=== PATIENT | female | born 1980 | race Caucasian/White ===

== ENCOUNTER → 2018-04-18 11:42 | Outpatient (CLI) | payer MEDICAID, SELFPAY ==
[2018-04-18 12:16] VITALS: BP 88/60; RESP 14; TEMP 36.6; O2SAT 98
[2018-04-18 12:31] VITALS: BP 92/61; PULSE 77; RESP 19; O2SAT 100
--- NOTE | 2018-04-18 12:45 | PDOC.PAIN_ITS ---
Date of Service: 04/18/18 Time of Service: 12:43 Pain Clinic Procedure Note Lumbar/Sacral Medial Branch Blocks #1 EBONI DIGGS has been referred to the [facility] for lumbar/ sacral medial branch blocks. COMMENTS: I did review Ms. Stratton's notes from her evaluation with the patient on 04/10/18. DX: Lumbosacral spondylosis without myelopathy Patient was interviewed and the medical record reviewed. There were no medical , pharmacologic, radiographic or other structural contraindications to attempting fluoroscopically guided local anesthetic lumbar/sacral medial branch blocks. Risks and expected side effects as well as potential benefit of the procedure were reviewed and voiced concerns addressed. The printed consent form was signed and witnessed. Standard time-out procedure was performed. Patient was placed in the prone position on the fluoroscopy table and automated blood pressure cuff and pulse oximeter applied. The skin entry points for approaching the anatomic target points of the segmental medial branches of bilateral L3-L5 were identified with anfluoroscopy and marked. Following thorough Chlorhexadine preparation of the skin and draping and 1% lidocaine infiltration of the skin entry points and subcutaneous tissues, a 22 gauge spinal needle was placed under fluoroscopic guidance down on to the target point for each respective segmental medial branch.Position was confirmed in A/P, oblique and lateral views with 0.25ml of omnipaque 240. Coult be this method .5ml 0.5% Bupivacaine was injected or 1% Lidocaine. Vital signs were stable throughout the procedure and were as recorded in the docflowsheet by the nursing staff. Follow up plans and appointments were discussed and was instructed to keep careful note of how the usual pain was modified by these injections. Specifically was asked to keep a pain diary for the next 24 hours using a numeric pain scale of 0-10 and report these results at the follow-up visit. Post procedure instruction was given as documented in the nursing documentation and having met discharge criteria. Patient was discharged from the [facility]. Based on the medial branches blocked today, if the patient has adequate relief and we are able to proceed to radiofrequency ablation, the treatment should result in the denervation of the bilateral L4-L5 and L5-S1 FACET JOINTS. We would expect to denervate a total of 4 facets during the radiofrequency ablation. COMMENTS: She will call back with her 1-4 hour post-procedure pain scores. CC: Sophia Edwards V
--- NOTE | 2018-04-18 12:45 | DI.REPORT_ITS ---
SYMPTOMS/DIAGNOSIS: LUMBAR MEDIAL BRANCH BLOCK, LUMBAR SPONDYLOSIS FLUOROSCOPY OF THE LUMBAR SPINE: Fluoroscopy Time: 46.2 sec, 5.48 mGy Fluoroscopy was provided for guidance with lumbar spine pain clinic injections. Please see procedure note for details.
[2018-04-18] MEDS: Omnipaque 240 MG/ML 50 ML BTL IJ (12:47)
[2018-04-18] MEDS: Bupivacaine 0.5% Pres-Free 30 ML VIAL IJ (12:49)
== END ==
PROVIDERS: PCP Family Medicine; Visit Provider Preventive Medicine Occupational Medicine
DX: M47.816 Spondylosis without myelopathy or radiculopathy, lumbar region (principal)
CPT/HCPCS: 64493; 64494; 72100; Q9967

== ENCOUNTER 2018-05-21 10:18 | Outpatient (CLI) | payer MEDICAID, SELFPAY ==
[2018-05-21 10:23] VITALS: BP 118/70; PULSE 97; RESP 18; TEMP 37.2; O2SAT 100
[2018-05-21 10:40] VITALS: BP 97/48; PULSE 101; RESP 16; O2SAT 99
--- NOTE | 2018-05-21 10:54 | DI.RAD_ITS ---
SYMPTOMS/DIAGNOSIS: CLOTILDE LUMBAR MEDIAL BRANCH BLOCK #1 C-ARM FLUOROSCOPY: Fluoroscopy Time: 19 sec 2.83 C-arm fluoroscopy was utilized by Dr. Denton during reported lumbar medial branch block. Hardcopy shows needle placement bilaterally adjacent to the pedicles at what appear to be the L 4, L 5 and S 1 levels.
[2018-05-21] MEDS: Lidocaine 2% Pres-Free 5 ML VIAL 3 ML IJ (10:58)
[2018-05-21] MEDS: Omnipaque 240 MG/ML 50 ML BTL IJ (10:58)
--- NOTE | 2018-05-21 11:01 | PDOC.PAIN ---
Pain Clinic Procedure Note Lumbar/Sacral Medial Branch Blocks EBONI DIGGS has been referred to the [facility] for lumbar/sacral medial branch blocks. COMMENTS: Patient had previous lumbar medial branch block with bupivacaine which lasted approximately 4 hours Patient was interviewed and the medical record reviewed. There were no medical, pharmacologic, radiographic or other structural contraindications to attempting fluoroscopically guided local anesthetic lumbar/sacral medial branch blocks. Risks and expected side effects as well as potential benefit of the procedure were reviewed and voiced concerns addressed. The printed consent form was signed and witnessed. Standard time-out procedure was performed. Patient was placed in the prone position on the fluoroscopy table and automated blood pressure cuff and pulse oximeter applied. The skin entry points for approaching the anatomic target points of the segmental medial branches of { bilateral L3, 4, 5 } were identified with anfluoroscopy and marked. Following thorough Chlorhexadine preparation of the skin and draping and 1% lidocaine infiltration of the skin entry points and subcutaneous tissues, a 22 gauge spinal needle was placed under fluoroscopic guidance down on to the target point for each respective segmental medial branch.Position was confirmed in A/P, oblique and lateral views with 0.25ml of omnipaque 240. At each point .5ml 2% lidocaine was injected. Vital signs were stable throughout the procedure and were as recorded in the docflowsheet by the nursing staff. Follow up plans and appointments were discussed and was instructed to keep careful note of how the usual pain was modified by these injections. Specifically was asked to keep a pain diary for the next 24 hours using a numeric pain scale of 0-10 and report these results at the follow-up visit. Post procedure instruction was given as documented in the nursing documentation and having met discharge criteria. Patient was discharged from the [facility]. Based on the medial branches blocked today, if the patient has adequate relief and we are able to proceed to radiofrequency ablation, the treatment should result in the denervation of the { bilateral L4-5, L5- S-FACET JOINTS}. We would expect to denervate a total of {Numbers} facets during the radiofrequency ablation. COMMENTS: CC: Sophia Edwards V Current Active Problems Problem Status Onset Spondylosis without myelopathy or radiculopathy, lumbar region Chronic
--- NOTE | 2018-05-21 11:25 | PDOC.PAIN ---
Pain Clinic Procedure Note Lumbar/Sacral Medial Branch Blocks EBONI DIGGS has been referred to the [facility] for lumbar/sacral medial branch blocks. COMMENTS: Patient had previous medial branch block with good relief for 4 hours using bupivacaine Patient was interviewed and the medical record reviewed. There were no medical, pharmacologic, radiographic or other structural contraindications to attempting fluoroscopically guided local anesthetic lumbar/sacral medial branch blocks. Risks and expected side effects as well as potential benefit of the procedure were reviewed and voiced concerns addressed. The printed consent form was signed and witnessed. Standard time-out procedure was performed. Patient was placed in the prone position on the fluoroscopy table and automated blood pressure cuff and pulse oximeter applied. The skin entry points for approaching the anatomic target points of the segmental medial branches of {Bilateral L3, 4, 5} were identified with anfluoroscopy and marked. Following thorough Chlorhexadine preparation of the skin and draping and 1% lidocaine infiltration of the skin entry points and subcutaneous tissues, a 22 gauge spinal needle was placed under fluoroscopic guidance down on to the target point for each respective segmental medial branch.Position was confirmed in A/P, oblique and lateral views with 0.25ml of omnipaque 240. At each point .5ml 2% lidocaine was injected. Vital signs were stable throughout the procedure and were as recorded in the docflowsheet by the nursing staff. Follow up plans and appointments were discussed and was instructed to keep careful note of how the usual pain was modified by these injections. Specifically was asked to keep a pain diary for the next 24 hours using a numeric pain scale of 0-10 and report these results at the follow-up visit. Post procedure instruction was given as documented in the nursing documentation and having met discharge criteria. Patient was discharged from the [facility]. Based on the medial branches blocked today, if the patient has adequate relief and we are able to proceed to radiofrequency ablation, the treatment should result in the denervation of the {Bilateral L4-5, L5-J5WHPKT JOINTS}. We would expect to denervate a total of {4} facets during the radiofrequency ablation. COMMENTS: Pain went from 3.5/10-0/10. She will follow-up for radiofrequency ablation if she meets the criteria. CC: Sophia Edwards V Current Active Problems Problem Status Onset Spondylosis without myelopathy or radiculopathy, lumbar region Chronic
--- NOTE | 2018-06-10 15:06 | PDOC.PAIN_ITS ---
Pain Clinic Procedure Note Lumbar/Sacral Medial Branch Blocks EBONI DIGGS has been referred to the [facility] for lumbar/ sacral medial branch blocks. COMMENTS: Patient had previous medial branch block with good relief for 4 hours using bupivacaine Patient was interviewed and the medical record reviewed. There were no medical , pharmacologic, radiographic or other structural contraindications to attempting fluoroscopically guided local anesthetic lumbar/sacral medial branch blocks. Risks and expected side effects as well as potential benefit of the procedure were reviewed and voiced concerns addressed. The printed consent form was signed and witnessed. Standard time-out procedure was performed. Patient was placed in the prone position on the fluoroscopy table and automated blood pressure cuff and pulse oximeter applied. The skin entry points for approaching the anatomic target points of the segmental medial branches of {Bilateral L3, 4, 5} were identified with anfluoroscopy and marked. Following thorough Chlorhexadine preparation of the skin and draping and 1% lidocaine infiltration of the skin entry points and subcutaneous tissues, a 22 gauge spinal needle was placed under fluoroscopic guidance down on to the target point for each respective segmental medial branch.Position was confirmed in A/P, oblique and lateral views with 0.25ml of omnipaque 240. At each point .5ml 2% lidocaine was injected. Vital signs were stable throughout the procedure and were as recorded in the docflowsheet by the nursing staff. Follow up plans and appointments were discussed and was instructed to keep careful note of how the usual pain was modified by these injections. Specifically was asked to keep a pain diary for the next 24 hours using a numeric pain scale of 0-10 and report these results at the follow-up visit. Post procedure instruction was given as documented in the nursing documentation and having met discharge criteria. Patient was discharged from the [facility]. Based on the medial branches blocked today, if the patient has adequate relief and we are able to proceed to radiofrequency ablation, the treatment should result in the denervation of the {Bilateral L4-5, L5-H0WVDFT JOINTS}. We would expect to denervate a total of {4} facets during the radiofrequency ablation. COMMENTS: Pain went from 3.5/10-0/10. She will follow-up for radiofrequency ablation if she meets the criteria. CC: Sophia Edwards V Current Active Problems Problem Status Onset Spondylosis without myelopathy or radiculopathy, lumbar region Chronic
--- NOTE | 2018-06-10 15:06 | PDOC.PAIN_ITS ---
Pain Clinic Procedure Note Lumbar/Sacral Medial Branch Blocks EBONI DIGGS has been referred to the [facility] for lumbar/ sacral medial branch blocks. COMMENTS: Patient had previous lumbar medial branch block with bupivacaine which lasted approximately 4 hours Patient was interviewed and the medical record reviewed. There were no medical , pharmacologic, radiographic or other structural contraindications to attempting fluoroscopically guided local anesthetic lumbar/sacral medial branch blocks. Risks and expected side effects as well as potential benefit of the procedure were reviewed and voiced concerns addressed. The printed consent form was signed and witnessed. Standard time-out procedure was performed. Patient was placed in the prone position on the fluoroscopy table and automated blood pressure cuff and pulse oximeter applied. The skin entry points for approaching the anatomic target points of the segmental medial branches of { bilateral L3, 4, 5 } were identified with anfluoroscopy and marked. Following thorough Chlorhexadine preparation of the skin and draping and 1% lidocaine infiltration of the skin entry points and subcutaneous tissues, a 22 gauge spinal needle was placed under fluoroscopic guidance down on to the target point for each respective segmental medial branch.Position was confirmed in A/P, oblique and lateral views with 0.25ml of omnipaque 240. At each point .5ml 2% lidocaine was injected. Vital signs were stable throughout the procedure and were as recorded in the docflowsheet by the nursing staff. Follow up plans and appointments were discussed and was instructed to keep careful note of how the usual pain was modified by these injections. Specifically was asked to keep a pain diary for the next 24 hours using a numeric pain scale of 0-10 and report these results at the follow-up visit. Post procedure instruction was given as documented in the nursing documentation and having met discharge criteria. Patient was discharged from the [facility]. Based on the medial branches blocked today, if the patient has adequate relief and we are able to proceed to radiofrequency ablation, the treatment should result in the denervation of the { bilateral L4-5, L5- S-FACET JOINTS}. We would expect to denervate a total of {Numbers} facets during the radiofrequency ablation. COMMENTS: CC: Sophia Edwards V Current Active Problems Problem Status Onset Spondylosis without myelopathy or radiculopathy, lumbar region Chronic
== END 2018-05-21 10:38 ==
PROVIDERS: PCP Family Medicine; Visit Provider Anesthesiology Pain Medicine
DX: M47.816 Spondylosis without myelopathy or radiculopathy, lumbar region (principal); G89.29 Other chronic pain
CPT/HCPCS: 64493 ×2; 64494 ×2; 64495 ×2; 72100; Q9967

== ENCOUNTER 2018-11-21 09:00 | Outpatient (CLI) | payer MEDICAID, SELFPAY ==
[2018-11-21 09:49] LABS: Abs Immature Grans 0.01 k/cumm (0.0-0.09); Absolute Basophil Count 0.02 k/cumm (0.0-0.2); Absolute Eosinophil Count 0.21 k/cumm (0.0-0.7); Absolute Monocyte Count 0.27 k/cumm (0.11-0.7); Absolute Neutrophil Count 2.32 k/cumm (1.2-6.7); Basophils % 0.4; Eosinophils % 3.8; HCT 40.7 % (36.0-46.0); HGB 13.2 g/dL (12.0-15.5); Immature Grans % 0.2; Lymphocytes % 48.8; Mean Corp. HGB Concentration 32.4 g/dL (32.0-36.0); Mean Corpuscular Hemoglobin 31.2 pg (27.0-33.0); Mean Corpuscular Volume 96.2 fL (80-95); Mean Platelet Volume 9.1 fL (8.0-11.0); Monocytes % 4.9; Neutrophils % 41.9; Platelet Count 301 x1000/uL (130-400); RBC 4.23 m/cumm (4.00-5.20); RBC Distribution Width 13.5 % (11.7-14.6); White Blood Cell Count 5.53 k/cumm (4.4-10.8)
[2018-11-21 10:10] LABS: Bilirubin Negative (Negative); Blood Negative (Negative); Clarity Clear; Glucose Negative (Negative); Ketones Negative (Negative); Leukocyte Esterase Negative (Negative); Nitrite Negative (Negative); Specific Gravity >= 1.030 (1.005-1.025); Urobilinogen 0.2 EU/dL (Up TO 0.2); pH 6.5 (5-8)
[2018-11-21 10:38] LABS: ESR 32 MM/HR (0-20)
[2018-11-21 11:18] LABS: ALT 22 U/L (12-78); AST 16 U/L (15-37); Alkaline Phosphatase 79 U/L (46-116); Anion Gap 7.9 mmol/L (3-11); BUN 18 mg/dL (7-18); Bilirubin, Total 0.2 mg/dL (0.2-1.0); C-Reactive Protein 0.23 mg/dL (0.0-0.3); CO2 31.1 mmol/L (21.0-32.0); Calcium 9.3 mg/dL (8.5-10.1); Chloride 103 mmol/L (98-107); FREE T4 0.77 ng/dL (0.76-1.46); Glucose 87 mg/dL (70-100); Potassium 4.2 mmol/L (3.5-5.1); Sodium 142 mmol/L (136-145); TSH 2.59 uIU/mL (0.358-3.74); Total Protein 7.7 g/dL (6.4-8.2)
== END 2018-11-21 09:20 ==
PROVIDERS: PCP Family Medicine; Visit Provider Family Medicine
DX: R63.5 Abnormal weight gain (principal); R61 Generalized hyperhidrosis
CPT/HCPCS: 36415; 80053; 85652; 81003; 84439; 84443; 85025; 86140

== ENCOUNTER 2019-02-05 09:51 | Outpatient (CLI) | payer MEDICAID, SELFPAY ==
[2019-02-05 11:40] LABS: TSH (W/Ref FT4) 2.76 uIU/mL (0.358-3.74)
[2019-02-06 10:29] LABS: Hepatitis C Ab w Rflx HCV PCR Negative (NEGAT)
[2019-02-06 15:41] LABS: Hepatitis A IgM Ab Negative (Negative)
[2019-02-07 09:09] LABS: HIV-1/2 Ag & Ab Screen SEE COMMENTS (NEGAT)
[2019-02-07 12:05] LABS: FREE T4 0.79 ng/dL (0.76-1.46)
[2019-02-07 16:47] LABS: HIV 1 Ab Diff Negative
[2019-02-07 16:48] LABS: HIV 2 Ab Diff Negative
== END 2019-02-05 10:11 ==
PROVIDERS: PCP Family Medicine; Visit Provider Family Medicine
DX: E03.9 Hypothyroidism, unspecified (principal); D51.0 Vitamin B12 deficiency anemia due to intrinsic factor deficiency; F90.0 Attention-deficit hyperactivity disorder, predominantly inattentive type; F19.21 Other psychoactive substance dependence, in remission; Z11.4 Encounter for screening for human immunodeficiency virus [HIV]; Z11.59 Encounter for screening for other viral diseases
CPT/HCPCS: 36415; 86701; 86702; 86803; 87389; 84439; 84443; 86709

== ENCOUNTER 2019-05-27 09:53 | Outpatient (CLI) | payer MEDICAID, SELFPAY ==
[2019-05-27 11:42] LABS: TSH (W/Ref FT4) 1.44 uIU/mL (0.36-3.74); Vitamin B12 395 pg/mL (193-986)
[2019-05-28 12:16] LABS: HIV-1/2 Ag & Ab Screen SEE COMMENTS (NEGAT)
[2019-06-02 12:51] LABS: HIV 1 Ab Diff Negative; HIV 2 Ab Diff Negative
== END 2019-05-27 10:13 ==
PROVIDERS: PCP Family Medicine; Visit Provider Family Medicine
DX: E03.9 Hypothyroidism, unspecified (principal); R76.8 Other specified abnormal immunological findings in serum; D51.0 Vitamin B12 deficiency anemia due to intrinsic factor deficiency
CPT/HCPCS: 36415; 86701; 86702; 87389; 82607; 84443

== ENCOUNTER 2019-06-19 15:31 | Outpatient (CLI) | payer MEDICAID, SELFPAY ==
[2019-06-23 14:49] LABS: HIV-1 RNA Quantification Undetected copies/mL (UNDECT)
== END 2019-06-19 15:51 ==
PROVIDERS: PCP Family Medicine; Visit Provider Family Medicine
DX: R76.8 Other specified abnormal immunological findings in serum (principal)
CPT/HCPCS: 36415; 87536

== ENCOUNTER 2019-06-28 18:40 | Emergency (ER) | payer MEDICAID, SELFPAY ==
[2019-06-28 18:49] VITALS: BP 126/65; PULSE 99; RESP 18; TEMP 36.7; O2SAT 100
--- NOTE | 2019-06-28 19:16 | ED.GENADUL_ITS ---
Discharge Plan Disposition Patient Disposition: HOME Condition: Stable Discharge Details Chief Complaint: Orthopedic Clinical Impression: Abscess or cellulitis of foot Primary Care Provider: Sophia Edwards V ED Provider: Rita Baer Home Meds and New Rx's Prescriptions: New mupirocin 2 % ointment 1 applic TP BID Qty: 15 RF: 0 cephalexin [Keflex] 500 mg capsule 500 mg PO TID 7 Days Qty: 21 RF: 0 Continued tyrosine 500 MG capsule 1,000 mg PO DAILY RF: 0 ondansetron 4 MG tablet,disintegrating 4 mg PO ONCE PRNRF: 0 cholecalciferol (vitamin D3) 1,000 UNIT capsule 2,000 unit PO DAILY RF: 0 Vyvanse 40 MG capsule 40 mg PO DAILY RF: 0 Vyvanse 70 MG capsule 70 mg PO QAM RF: 0 polyethylene glycol 3350 17 GM powder in packet 17 gm PO DAILY PRN PRNRF: 0 methocarbamol 750 MG tablet 750 mg PO HS PRNRF: 0 cyanocobalamin (vitamin B-12) 1,000 MCG/ML solution 1,000 mcg IJ .Q3WKS RF: 0 chlordiazepoxide-clidinium [Librax (with clidinium)] 1 CAP capsule 1 ea PO DAILY PRN PRNRF: 0 levonorgestrel-ethinyl estrad [Introvale] 1 EACH tablets,dose pack,3 month 1 ea PO DAILY RF: 0 lysine HCl 500 MG tablet 500 mg PO DAILY RF: 0 clonidine HCl 0.1 MG tablet extended release 12 hr 0.1 mg PO HS PRN PRNRF: 0 quetiapine [Seroquel] 100 mg Tablet 100 mg PO HS RF: 0 Discharge Instructions Instructions: Cellulitis (ED) Additional Instructions: Take the antibiotics until finished. Wash the area with soap and water and cover if risk of contamination, or keep open to air if resting at home. Follow-up with your scheduled appointment with your primary care doctor on July 08 for reevaluation. Return to the emergency department if you develop any worsening or concerning symptoms such as fever, red streaking or any worsening symptoms. Discharge Data Discharge Physician: Rita Baer Medical Decision Making 39-year-old female presents with right foot pain, swelling and drainage for the past several weeks. She states she is unsure of any injury. She denies fever. There appears to be a skin infection with clear yellowish-whitish drainage and center consistent with cellulitis with draining mild abscess. There is no surrounding induration. There is no bony deformity or ecchymosis. Patient denies any known injury but she was offered x-ray but declines. Will treat with topical and oral antibiotics. She is advised to rest and elevate, proper hygiene, return here if worse and to follow-up with her primary care doctor for reevaluation on her scheduled appointment on July 08. HPI General Mode of arrival: ambulatory . Date/Time Provider Initiated Documentation: 06/28/19 19:02 . Limitations to Documentation: no limitations . Information obtained by: patient . HPI Narrative: Patient is a 39 female presents with right foot infection for the past several weeks now with clear to yellowish pus drainage. She states she is unsure of any known injury but she is unsure how she obtained the wound. She denies any bony deformity or pain within the toe. She denies any fever. She states she has been cleaning the area with peroxide. Related Data Home Medications Medication Instructions Recorded Confirmed Vyvanse 70 mg PO QAM 12/10/12 06/28/19 chlordiazepoxide-clidinium [Librax 1 ea PO DAILY PRN PRN 04/07/16 06/28/19 (with clidinium)] clonidine HCl 0.1 mg PO HS PRN PRN 04/07/16 06/28/19 cyanocobalamin (vitamin B-12) 1,000 mcg IJ .Q3WKS 04/07/16 06/28/19 levonorgestrel-ethinyl estrad 1 ea PO DAILY 04/07/16 06/28/19 [Introvale] lysine HCl 500 mg PO DAILY 04/07/16 06/28/19 methocarbamol 750 mg PO HS PRN 04/07/16 06/28/19 polyethylene glycol 3350 17 gm PO DAILY PRN PRN 04/07/16 06/28/19 Vyvanse 40 mg PO DAILY tab-cap 04/06/18 06/28/19 cholecalciferol (vitamin D3) 2,000 unit PO DAILY 04/06/18 06/28/19 ondansetron 4 mg PO ONCE PRN 04/06/18 06/28/19 tyrosine 1,000 mg PO DAILY 04/06/18 06/28/19 cephalexin [Keflex] 500 mg PO TID 7 Days #21 cap 06/28/19 mupirocin 1 applic TP BID #15 gm 06/28/19 quetiapine [Seroquel] 100 mg PO HS 06/28/19 06/28/19 Previous Rx's Medication Instructions Recorded cephalexin [Keflex] 500 mg PO TID 7 Days #21 cap 06/28/19 mupirocin 1 applic TP BID #15 gm 06/28/19 Allergies Allergy/AdvReac Type Severity Reaction Status Date / Time diphenhydramine HCl Allergy Severe Anaphylaxsi Unverified 06/28/19 18:52 [From Benadryl] s duloxetine HCl Allergy Intermediate hallucination, Unverified 06/28/19 18:52 [From Cymbalta] fever, stomach pain, sweating,vomitting eszopiclone [From Lunesta] AdvReac Unknown Unverified 06/28/19 18:52 morphine sulfate AdvReac Unknown Unverified 06/28/19 18:52 [From MS Contin] trazodone AdvReac Unknown Unverified 06/28/19 18:52 zolpidem tartrate AdvReac Unknown Unverified 06/28/19 18:52 [From Ambien] General Stated Complaint: Orthopedic SAMANTHA: 4 Review of Systems Review of Systems ROS Unobtainable: All systems reviewed & are unremarkable except as noted in HPI and below Constitutional Constitutional: Reports as per HPI, Denies chills and Denies fever(s) Eyes Eyes: Denies blurry vision ENT Ears, Nose, Mouth, and Throat: Denies dizziness, Denies sore throat and Denies throat swelling Cardiovascular Cardiovascular: Denies chest pain and Denies dyspnea Respiratory Respiratory: Denies cough and Denies dyspnea Gastrointestinal Gastrointestinal: Denies abdominal pain, Denies diarrhea and Denies vomiting Genitourinary Genitourinary: Denies hematuria and Denies dysuria Musculoskeletal Musculoskeletal: Denies back pain and Denies numbness Integumentary/Breasts Skin/Breast: Denies lesions and Denies rash Neurologic Neurologic: Denies dizziness, Denies focal weakness and Denies numbness Allergic/Immunologic Allergic/Immunologic: Denies throat swelling [facility] Medical History Anemia Anxiety Attention deficit disorder (ADD) without hyperactivity Back pain Chronic fatigue syndrome Congenital finger anomaly Cyclical vomiting Depression History of pneumonia HSV infection Hx of substance abuse IBS (irritable bowel syndrome) Low back pain Mold exposure Mood disorder Muscle spasm Onychomycosis of toenail Peripheral neuropathy Pernicious anemia Post traumatic stress disorder Psychogenic dyspareunia Recurrent respiratory infection Scoliosis Skin lesion Sleep disturbance Spondylosis without myelopathy or radiculopathy, lumbar region (Chronic) Vaginal irritation Vertigo Wart Weight loss Social History Smoking/Tobacco Use Status: Current every day Alcohol Intake: never Drug use: Current Sobriety Do you feel safe at home: Yes Do you feel safe in your relationship?: Yes Exam Const General: cooperative, healthy appearing and no acute distress HENMT Head: normal to inspection Mouth: oral mucosae normal Eyes General: appearance normal, both eyes and all related structures Neck Neck: normal visual inspection Resp Effort & Inspection: normal respiratory effort and able to speak in complete sentences Cardio Rate: regular rate Skin General skin exam: no rashes or lesions noted Neuro General: alert, awake and oriented x3 Motor: muscle tone normal throughout Extrem Ankle/foot/toe images: 1. 1 x 1 cm area of clear whitish-yellowish drainage on the lateral aspect of distal end of fifth metatarsal near base of fifth toe with 1 cm area of surrounding erythema and tenderness to palpation. No other significant fluctuance or induration. Other: DP/PT pulses intact. No ecchymosis or bony deformity noted to right fifth toe. Normal range of motion of right fifth toe. Psych Appearance: grossly normal Affect: normal affect Course Vital Signs Vital signs: Vital Signs Temperature 98.1 F 06/28/19 18:49 Pulse 99 H 06/28/19 18:49 Respiratory Rate 18 06/28/19 18:49 Blood Pressure 126/65 06/28/19 18:49 Pulse Oximetry 100 06/28/19 18:49 Temperature 98.1 F 06/28/19 18:49 Temperature Source Skin 06/28/19 18:49 Pulse 99 H 06/28/19 18:49 Respiratory Rate 18 06/28/19 18:49 Respiratory Effort Non-Labored 06/28/19 18:51 Blood Pressure 126/65 06/28/19 18:49 Blood Pressure Position Sitting 06/28/19 18:49 Pulse Oximetry 100 06/28/19 18:49 Oxygen Delivery Method Room Air 06/28/19 18:49 Oxygen Flow Rate 0 06/28/19 18:49
[2019-06-28] MEDS: Cephalexin 500 MG CAP PO (19:27)
== END 2019-06-28 19:39 | disposition home or self-care (01) ==
PROVIDERS: Emergency Provider Physician Assistant; PCP Family Medicine
DX: L02.611 Cutaneous abscess of right foot (principal); L03.115 Cellulitis of right lower limb
CPT/HCPCS: 99283

== ENCOUNTER 2020-08-31 17:41 | Outpatient (REF) | payer MEDICAID, SELFPAY ==
--- NOTE | 2020-08-31 16:15 | SKI_PTH ---
PATIENT: Karon Parra LOC: NCN #:[id number] AGE/SX: 40/F ROOM: RE08/31/[address]: Sophia Edwards V : 1980 BED: DIS: 08/31/2020 SPEC #: [id number] RECD: 09/01/20 12:43 STATUS: DAVION MARTINEZ #: [id number] DAMARI: 08/31/20 16:[address]: Sophia Edwards V DEPT: Surgical Specimen RECD BY: Joyce Genao Tissues: 1 - SKIN BIOPSY(SHAVE/PUNCH) Procedures: SKIN LEVEL 4 Comments: [id number]
== END 2020-08-31 18:01 ==
LOC: NCHCN 17:41
PROVIDERS: PCP Family Medicine; Visit Provider Family Medicine
DX: L82.1 Other seborrheic keratosis (principal)
CPT/HCPCS: 88305

== ENCOUNTER 2021-01-21 18:34 | Outpatient (REF) | payer MEDICAID, SELFPAY ==
[2021-01-28 09:53] LABS: Codeine 1479 ng/mL (Cutoff: 25); Dihydrocodeine Negative ng/mL (Cutoff: 25); Hydrocodone Negative ng/mL (Cutoff: 25); Hydromorphone 199 ng/mL (Cutoff: 25); Morphine 73737 ng/mL (Cutoff: 25); Naloxone Negative ng/mL (Cutoff: 25); Norhydrocodone Negative ng/mL (Cutoff: 25); Noroxycodone Negative ng/mL (Cutoff: 25); Opiates Interpretation Positive.
== END 2021-01-21 18:35 | disposition home or self-care (01) ==
LOC: NCHCN 18:34
PROVIDERS: PCP Family Medicine; Visit Provider Family Medicine
DX: Z51.81 Encounter for therapeutic drug level monitoring (principal)
CPT/HCPCS: 80361; 80362

== ENCOUNTER 2021-10-10 02:00 | Outpatient (CLI) | payer MEDICAID, SELFPAY ==
--- NOTE | 2021-10-10 10:30 | DI.MAMMO_ITS ---
Exam(s) MAMMO SCREENING EXAM: MAMMO SCREENING CLINICAL HISTORY: SCREENING, [facility], Z00.00. TECHNIQUE: Bilateral full field digital CC and MLO mammographic images were obtained with 3D tomosyn thesis and utilizing computer aided detection (CAD). COMPARISON: None. This is a baseline mammogram on this 41-year-old patient FINDINGS: The right breast asymmetric density-possible nodule located 6 cm in from the nipple, best seen on the 3D MLO images measuring approximately 1.4 x 1.1 cm. Spot compression view and ultrasound recommended . The opposite-left breast on 3D MLO imaging there is a possible nodule located 5 cm in from nipple horace suring 5 x 4 millimeters. Also require spot compression view and ultrasound. There are no malignant-appearing microcalcification groups in either breast. There is no significant architectural distortion nor skin thickening-retraction. IMPRESSION: Bilateral findings described above. Spot compression views both breasts and bilateral breast ultrasou nd recommended. BI-RADS Category 0 - Assessment Incomplete: Need additional imaging evaluation Breast Density - Category B - Scattered areas of fibroglandular density Breast density Category C or D implies that the patient has dense breast tissue. Dense breast tissue can make it harder to find cancer on a mammogram. Dense breast tissue is also associated with an incr eased risk of breast cancer. This information about the result of the mammogram report was provided to the patient to raise their awareness. Use this report when you speak with the patient about their risks for breast cancer, which includes their family history. At that time, you may recommend additional screening tests (Ultrasoun d or MRI) as these tests may add significant information. A negative radiographic report should not delay biopsy if a dominant or clinically suspicious mass is present. Up to ten percent of cancers are not identified on mammography. A negative report may reinforce clinical impression. Adenosis and dense breasts may obscure an underlying neoplasm. False positive reports average 6 to 10%. Patient will receive a letter notifying them of these results.
== END 2021-10-10 02:20 ==
PROVIDERS: PCP Family Medicine; Visit Provider Family Medicine
DX: Z12.31 Encounter for screening mammogram for malignant neoplasm of breast (principal); R92.8 Other abnormal and inconclusive findings on diagnostic imaging of breast
CPT/HCPCS: 77063; 77067

== ENCOUNTER 2021-10-31 00:31 | Outpatient (CLI) | payer MEDICAID, SELFPAY ==
--- NOTE | 2021-10-31 | DI.US_ITS ---
Exam(s) US BREAST LT COMPLETE US BREAST RT COMPLETE MG MAMMO SCREEN CALL BACK BI EXAM: MG MAMMO SCREEN CALL BACK BI AND BILATERAL COMPLETE BREAST ULTRASOUND CLINICAL HISTORY: RT BREAST ASYMMETRIC DENSITY, POSSIBLE NODULE, LEFT BREAST POSSIBLE NODULE. TECHNIQUE: BILATERAL l spot mammographic images obtained with 3D tomosynthesisand utilizing computer aided detection (CAD). . Complete BILATERAL breast Ultrasound was also performed, including all 4 quadrants, the retroareolar region, and the ipsilateral axilla. COMPARISON: THIS additional imaging was performed due to findings described on the recent BASAL scre ening mammogram of 10/10/2021. FINDINGS: DIAGNOSTIC BILAT MAMMOGRAM: Additional mammographic views performed todayrender findings both breasts somewhat less concerning. BILATERAL COMPLETE BREAST ULTRASOUND: Ultrasound performed today reveals no significant focal findings in all 4 quadrants of the right [address]isy [address]. In the left breast there are no focal findings to correspond to the finding described on the recent m ammogram. However, at the 11 o'clock position there is a finding measuring approximately 11 x 5 mill imeters, wider than taller and having the appearance of a probable conglomeration microcysts. This i s benign-appearing. No other focal findings. IMPRESSION: No radiographic evidence of malignancy. Benign-appearing ultrasound finding at 11 o'clock position of the left breast as described above Appropriate follow-up as discussed by myself with the patient today, is repeat breast imaging in 6 mo nths to include bilateral mammogram and repeat breast ultrasound. Is . The patient was informed of these findings and recommendations prior to leaving the department today. BI-RADS Category 3 - 6 month - Probably Benign Finding: Recommend follow-up mammography in 6 months Breast Density - Category B - Scattered areas of fibroglandular density Breast density Category C or D implies that the patient has dense breast tissue. Dense breast tissue can make it harder to find cancer on a mammogram. Dense breast tissue is also associated with an incr eased risk of breast cancer. This information about the result of the mammogram report was provided to the patient to raise their awareness. Use this report when you speak with the patient about their risks for breast cancer, which includes their family history. At that time, you may recommend additional screening tests (Ultrasoun d or MRI) as these tests may add significant information. A negative radiographic report should not delay biopsy if a dominant or clinically suspicious mass is present. Up to ten percent of cancers are not identified on mammography. A negative report may reinforce clinical impression. Adenosis and dense breasts may obscure an underlying neoplasm. False positive reports average 6 to 10%. Patient will receive a letter notifying them of these results.
== END 2021-10-31 00:51 ==
PROVIDERS: PCP Family Medicine; Visit Provider Family Medicine
DX: Z12.31 Encounter for screening mammogram for malignant neoplasm of breast (principal); R92.8 Other abnormal and inconclusive findings on diagnostic imaging of breast; N60.12 Diffuse cystic mastopathy of left breast; N64.59 Other signs and symptoms in breast
CPT/HCPCS: 76642; 77063; 77067

== ENCOUNTER 2021-12-13 03:22 | Outpatient (CLI) | payer MEDICAID, SELFPAY ==
--- NOTE | 2021-12-13 08:45 | RT.EKG_ITS ---
APPROVED REPORT Exam: Resting ECG Reason for Exam: palpitations Patient Location: O HR:60 bpm ECG Measurements Heart Rate 60 AXIS MI 166 P 64 QRSd 85 QRS 87 QT 438 T 75 QTc 440 Conclusion Sinus rhythm...normal P axis, V-rate 60- 99 Probable left atrial enlargement...P >50mS, <-0.10mV V1 Otherwise normal
== END 2021-12-13 03:23 | disposition home or self-care (01) ==
LOC: RT 03:22
PROVIDERS: PCP Family Medicine; Visit Provider Family Medicine
DX: R00.2 Palpitations (principal); Z51.81 Encounter for therapeutic drug level monitoring; R94.31 Abnormal electrocardiogram [ECG] [EKG]
CPT/HCPCS: 93005; 93010

== ENCOUNTER → 2022-04-20 02:15 | Outpatient (CLI) | payer MEDICAID, SELFPAY ==
--- NOTE | 2022-04-20 13:05 | DI.MAMMO_ITS ---
Exam(s) MG MAMMO DIAGNOSTIC BI EXAM: MG MAMMO DIAGNOSTIC BI CLINICAL HISTORY: 6-MO F/U BILAT ABNL MAMMO, R92.8,DIAGNOSTIC. TECHNIQUE: Craniocaudal and mediolateral oblique Full Field Digital Mammography views with Computer Aided Diagnosis followed by Tomosynthesis and breast ultrasound. COMPARISON: MG MG MAMMO SCREENING from 10/10/2021 US US BREAST LT COMPLETE from 10/31/2021 US US BREAST RT COMPLETE from 10/31/2021 MG MG MAMMO SCREEN CALL BACK BI from 10/31/2021 US US BREAST LT LIMITED from 04/20/2022 FINDINGS: Mammography/Tomosynthesis: Masses/Architectural Distortion: Stable 5 millimeter circumscribed nodule central inferior left breas t. No abnormalities seen in the right breast. Microcalcifictions: No suspicious pleomorphic-type are seen. Skin Thickening/Nipple Retraction: None. Left breast US: Echotexture: Normal appearance of the glandular tissue. Shadowing: No suspicious foci. Cyst: Previously noted collection of microcysts appears unchanged in the 11 to 12 o'clock position. Solid lesions: None seen. Ductal dilation: None. IMPRESSION: 1. No evidence of malignancy is noted. 2. Unless there is more urgent need, follow-up screening mammography is recommended, as per [place] [employer] guidelines in 1 year.. 3. The findings were discussed with the patient on the date of the examination. BI-RADS Category 2 - Benign Findings Breast Density - Category B - Scattered areas of fibroglandular density A negative radiographic report should not delay biopsy if a dominant or clinically suspicious mass is present. Up to ten percent of cancers are not identified on mammography. A negative report may reinforce clinical impression. Adenosis and dense breasts may obscure an underlying neoplasm. False positive reports average 6 to 10%. Patient will receive a letter notifying them of these results.
--- NOTE | 2022-04-20 14:00 | DI.US_ITS ---
Exam(s) US BREAST LT LIMITED EXAM: US BREAST LT LIMITED CLINICAL HISTORY: 6-MO F/U LT BREAST, 11 O'CLOCK POSITION MICROCYSTS TECHNIQUE: Ultrasound left breast performed using standard protocol. COMPARISON: No exams were available for comparison FINDINGS: No change in collection microcysts in the 11-12 o'clock position. No suspicious solid or cystic mass es, hypoechoic foci, areas of abnormal shadowing, or areas of skin thickening. IMPRESSION: No sonographically suspicious finding. BI-RADS Category 2 - Benign Findings DATA REPOSITORY:
== END ==
PROVIDERS: PCP Family Medicine; Visit Provider Family Medicine
DX: Z12.31 Encounter for screening mammogram for malignant neoplasm of breast (principal); R92.8 Other abnormal and inconclusive findings on diagnostic imaging of breast
CPT/HCPCS: 76642; 77062; 77066; G0279

== ENCOUNTER 2022-04-20 02:55 | Outpatient (CLI) | payer MEDICAID, SELFPAY ==
[2022-04-20 13:33] LABS: FREE T4 0.97 ng/dL (0.76-1.46); TSH 1.39 uIU/mL (0.36-3.74)
[2022-04-20 16:13] LABS: Calculated LDL 106 mg/dL (<100); Cholesterol 170 mg/dL (<200); Glucose 97 mg/dL (74-106); HDL Cholesterol 24 mg/dL (40-60); Triglyceride 203 mg/dL (<150); Vitamin B12 376 pg/mL (193-986)
== END 2022-04-20 02:56 | disposition home or self-care (01) ==
LOC: LBO 02:56
PROVIDERS: PCP Family Medicine; Visit Provider Family Medicine
DX: E03.9 Hypothyroidism, unspecified (principal); D51.0 Vitamin B12 deficiency anemia due to intrinsic factor deficiency; R79.89 Other specified abnormal findings of blood chemistry
CPT/HCPCS: 36415; 80061; 82947; 82607; 84439; 84443

== ENCOUNTER 2022-07-31 14:06 | Emergency (ER) | payer OTHER, MEDICAID, SELFPAY ==
[2022-07-31 14:11] VITALS: BP 132/83; PULSE 92; RESP 20; O2SAT 97
--- NOTE | 2022-07-31 14:30 | DI.CT_ITS ---
Exam(s) CT HEAD CERVICAL SPINE WO EXAM: CT HEAD CERVICAL SPINE WO CLINICAL HISTORY: trauma, headache, neck pain. TECHNIQUE: Imaging Protocol: Axial computed tomography images with coronal and sagittal reformatted images were created and reviewed COMPARISON: No exams were available for comparison FINDINGS: Head CT Ventricles and Extra axial spaces: Normal in size and morphology for the patient's age. Hemorrhage: None. Cerebral parenchyma: Normal. Midline shift: None. Brainstem/Cerebellum: Normal. Calvarium: Normal. Visualized Paranasal sinuses/Mastoids: Clear. Soft tissues: Laceration left forehead. No foreign body. Cervical Spine CT BONES: Vertebral body heights are maintained. Alignment is normal. There is no evidence of acute frac ture. Mild degenerative disc changes and facet degenerative changes are seen . SOFT TISSUES: No paraspinal hematoma. The airway appears intact. No pneumothorax is seen at the lung apices. IMPRESSION: Head CT: Left frontal scalp laceration. No acute intracranial abnormality. C-spine CT: Mild degenerative changes, no acute abnormality. RADIATION DOSE DELIVERED: 1,569.28mGy.cm Total DLP DATA REPOSITORY: All CT scans at this facility are submitted to the National Radiology Data Registry (NRDR) Dose Index Registry (DIR) with the [employer] ([employer]). RADIATION OPTIMIZATION: All CT scans at this facility use at least one of these dose optimization te chniques: automated exposure control; mA and/or kV adjustment per patient size (includes targeted exa ms where dose is matched to clinical indication); or iterative reconstruction.
--- NOTE | 2022-07-31 14:41 | DI.CT_ITS ---
Exam(s) CT CHEST/ABD/PEL WO EXAM: CT CHEST/ABD/PEL WO CLINICAL HISTORY: trauma. TECHNIQUE: Imaging Protocol: Axial computed tomography images with coronal and sagittal reformatted images were created and reviewed CONTRAST MATERIAL: Intravenous: Omnipaque 350 Contrast volume:Noncontrast Oral: / no COMPARISON: CT RENAL COLIC WO CONTRAST from 04/07/2016 FINDINGS: CHEST: Tracheobronchial tree: Patent where visualized. Mediastinum and Becki: No dominant adenopathy or fluid collection. Pulmonary parenchyma: No consolidation or dominant measurable mass. Pleura: No effusion or pneumothorax. Lymph nodes: Within normal limits. Aorta: Thoracic portion non-dilated. Heart: Normal size. No l pericardial effusion. Bones: Scoliosis in the thoracic spine. Subacute appearing fractures of the left anterior 4th and 5t h ribs. No acute fractures identified. ABDOMEN: Liver: Normal density. No measurable mass. Gallbladder and biliary tract: No radiodense calculus or dilation. Pancreas: Normal density, no abnormal calcifications or inflammatory process. Spleen: Normal. Kidneys: Normal size, contour and axis. No radiodense stones or obstructive uropathy. No masses seen. Adrenal glands: No masses seen. Aorta: Abdominal portion non-dilated. Lymph nodes: Within normal limits. Soft tissues: Unremarkable. PELVIS: Bladder: Symmetric distention, no gross wall thickening. Bowel: Large quantity of stool. No obstruction or bowel wall thickening. Peritoneal cavity: No ascites, collection or mesenteric inflammatory response. Bones: Unremarkable for age.. No spine or pelvic fracture. Reproductive organs: Within normal limits. IMPRESSION: No acute abnormality in the chest abdomen or pelvis.. The findings were called to Dr. Linda Caldwell of the emergency department. RADIATION DOSE DELIVERED: 1,217.06mGy.cm Total DLP DATA REPOSITORY: All CT scans at this facility are submitted to the National Radiology Data Registry (NRDR) Dose Index Registry (DIR) with the [employer] (ACR). RADIATION OPTIMIZATION: All CT scans at this facility use at least one of these dose optimization te chniques: automated exposure control; mA and/or kV adjustment per patient size (includes targeted exa ms where dose is matched to clinical indication); or iterative reconstruction.
--- NOTE | 2022-07-31 14:46 | NUR.NOTE ---
Nursing Note: Patient is refusing iv/lab work Dr. Caldwell aware
[2022-07-31] MEDS: Ondansetron O.D.T. 4 MG TABEF PO (16:13)
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
== END 2022-07-31 17:40 | disposition home or self-care (01) ==
LOC: ER 17:49
PROVIDERS: Emergency Provider Student in an Organized Health Care Education/Training Program; PCP Family Medicine
DX: S01.81XA Laceration without foreign body of other part of head, initial encounter (principal); Z23 Encounter for immunization; Z86.73 Personal history of transient ischemic attack (TIA), and cerebral infarction without residual deficits; Z86.711 Personal history of pulmonary embolism; V69.49XA Driver of heavy transport vehicle injured in collision with other motor vehicles in traffic accident, initial encounter
CPT/HCPCS: 12013; 71250; 80053; 86900; 86901; 90471; 99284; 70450; 72125; 74176; 85025

== ENCOUNTER 2022-08-05 11:51 | Emergency (ER) | payer MEDICAID, SELFPAY ==
[2022-08-05 11:53] VITALS: BP 121/61; PULSE 85; RESP 18; TEMP 36.8; O2SAT 98
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
== END 2022-08-05 12:20 | disposition home or self-care (01) ==
PROVIDERS: Emergency Provider Physician Assistant; PCP Family Medicine
DX: S01.81XD Laceration without foreign body of other part of head, subsequent encounter (principal); X58.XXXD Exposure to other specified factors, subsequent encounter

== ENCOUNTER 2022-09-12 11:52 | Emergency (ER) | payer MEDICAID, SELFPAY ==
[2022-09-12 11:58] VITALS: BP 115/68; PULSE 100; RESP 20; TEMP 37.1; O2SAT 99
--- NOTE | 2022-09-12 12:30 | DI.RAD_ITS ---
Exam(s) XR CHEST 2V PA LATERAL EXAM: XR CHEST 2V PA LATERAL CLINICAL HISTORY: Productive cough, R/O PNA. TECHNIQUE: 2D digital imaging was performed. COMPARISON: CR THORACIC SPINE from 03/11/2018 FINDINGS: 2 views: Scoliosis convex right again noted, unchanged from 2018. Heart size is normal. The mediastinum is not widened. Right lung is clear. However, there is a nodular density in the lateral aspect of the left lung izabella uring approximately 1.9 x 1.2 cm. Only seen on the frontal view but still concerning. No pleural ef fusions. IMPRESSION: Peripheral left lung nodular density. And CT scan. DATA REPOSITORY: RADIATION DOSE DELIVERED:
--- NOTE | 2022-09-12 12:46 | ED.GENADUL_ITS ---
Discharge Plan Disposition Patient Disposition: Home Condition: Stable Discharge Details Clinical Impression: URI (upper respiratory infection) Primary Care Provider: Sophia Edwards V ED Provider: Osiris Arellano Home Meds and New Rx's Prescriptions: New doxycycline hyclate 100 mg tablet 100 mg PO BID 7 Days Qty: 14 0RF Rx Instructions: Take 1 tablet twice daily x7 days No Action tyrosine 500 MG capsule 1,000 mg PO DAILY cholecalciferol (vitamin D3) 1,000 UNIT capsule 2,000 unit PO DAILY Vyvanse 40 MG capsule 40 mg PO DAILY Vyvanse 70 MG capsule 70 mg PO QAM polyethylene glycol 3350 17 GM powder in packet 17 gm PO DAILY PRN PRN methocarbamol 750 MG tablet 750 mg PO HS PRN cyanocobalamin (vitamin B-12) 1,000 MCG/ML solution 1,000 mcg IJ .Q3WKS chlordiazepoxide-clidinium [Librax (with clidinium)] 1 CAP capsule 1 ea PO DAILY PRN PRN levonorgestrel-ethinyl estrad [Introvale] 1 EACH tablets,dose pack,3 month 1 ea PO DAILY lysine HCl 500 MG tablet 500 mg PO DAILY clonidine HCl 0.1 MG tablet extended release 12 hr 0.1 mg PO HS PRN PRN ondansetron 4 mg tablet,disintegrating 4 mg PO TID Qty: 8 0RF quetiapine [Seroquel] 100 mg Tablet 100 mg PO HS mupirocin 2 % ointment 1 applic TP BID Qty: 15 0RF Discharge Instructions Instructions: Upper Respiratory Infection (ED) Additional Instructions: The COVID flu and strep swab are all negative. Chest x-ray shows no evidence for pneumonia however you do have a small lung nodule on the left. This will need to have a repeat x-ray in approximately 6 months through your PCP. Please discuss this with your primary care provider. Take the antibiotic twice daily with yogurt or probiotic for the next 7 days. Follow up with primary care provider in 3-5 days. Return to ED sooner if any worsening or concerns. Increase oral fluids. You may take [id number] cough and cold medicine as needed and as directed. Please take Tylenol or Ibuprofen with food every 4-6 hours as needed for pain and swelling. Referrals: Sophia Edwards MD [Primary Care Provider] - 2 weeks Discharge Data Discharge Date/Time-TO BE ENTERED AT DEPARTURE: 09/12/22 14:22 Medical Decision Making 42-year-old female presents with URI type symptoms for 3 weeks reports productive cough of thick green and brown sputum. She reports that she has been laying in bed for the last 3 weeks. Please see HPI and PE. Rapid flu and COVID ordered, urine Preg and chest x-ray, albuterol inhaler. Differential diagnosis includes but not limited to flu, COVID, pneumonia. Flu COVID-negative, chest x-ray shows a left possible nodule no obvious pneumonia however due to patient's symptoms and length of illness I will place patient on antibiotics. Discussed home care follow-up and strict return instructions. This text was generated using [email or web address] dictation system, please disregard any oddities of phrase or misspellings. HPI General Mode of arrival: ambulatory . Date/Time Provider Initiated Documentation: 09/12/22 12:16 . Limitations to Documentation: no limitations . Information obtained by: patient, RN notes reviewed and old records reviewed . HPI Narrative: 42-year-old female presents to the ER with chief complaint of productive cough and URI type symptoms for the last 3 weeks. She reports that she has been laying in bed. She is a smoker. She denies any fever chills she does endorse body aches. She has not taken anything for the symptoms. She does have a past medical history of PTSD, peripheral neuropathy, muscle spasm, mood disorder, irritable bowel syndrome, history of substance abuse history of pneumonia, depression and ADD. Related Data Home Medications Medication Instructions Recorded Confirmed lisdexamfetamine 70 mg capsule 70 mg PO QAM 12/10/12 09/12/22 (Vyvanse) chlordiazepoxide-clidinium 5 1 ea PO DAILY PRN PRN 04/07/16 09/12/22 mg-2.5 mg capsule (Librax (with clidinium)) clonidine HCl 0.1 mg 0.1 mg PO HS PRN PRN 04/07/16 09/12/22 tablet,extended release,12 hr cyanocobalamin (vitamin B-12) 1,000 mcg IJ .Q3WKS 04/07/16 09/12/22 1,000 mcg/mL injection solution levonorgestrel 0.15 mg-ethinyl 1 ea PO DAILY 04/07/16 09/12/22 estradiol 30 mcg tablets,3 mos pack(91) (Introvale) lysine HCl 500 mg tablet 500 mg PO DAILY 04/07/16 09/12/22 methocarbamol 750 mg tablet 750 mg PO HS PRN 04/07/16 09/12/22 polyethylene glycol 3350 17 gram 17 gm PO DAILY PRN PRN 04/07/16 09/12/22 oral powder packet cholecalciferol (vitamin D3) 25 2,000 unit PO DAILY 04/06/18 09/12/22 mcg (1,000 unit) capsule lisdexamfetamine 40 mg capsule 40 mg PO DAILY 04/06/18 09/12/22 (Vyvanse) tyrosine 500 mg capsule 1,000 mg PO DAILY 04/06/18 09/12/22 mupirocin 2 % topical ointment 1 applic topical BID #15 grams 06/28/19 09/12/22 quetiapine 100 mg tablet (Seroquel) 100 mg PO HS 06/28/19 09/12/22 ondansetron 4 mg disintegrating 4 mg PO TID #8 tabs 07/31/22 09/12/22 tablet doxycycline hyclate 100 mg tablet 100 mg PO BID 7 days #14 tabs 09/12/22 Previous Rx's Medication Instructions Recorded mupirocin 2 % topical ointment 1 applic topical BID #15 grams 06/28/19 ondansetron 4 mg disintegrating 4 mg PO TID #8 tabs 07/31/22 tablet doxycycline hyclate 100 mg tablet 100 mg PO BID 7 days #14 tabs 09/12/22 Allergies Allergy/AdvReac Type Severity Reaction Status Date / Time diphenhydramine HCl Allergy Severe Anaphylaxsi Unverified 09/12/22 12:04 [From Benadryl] s duloxetine HCl Allergy Intermediate hallucination, Unverified 09/12/22 12:04 [From Cymbalta] fever, stomach pain, sweating,vomitting eszopiclone [From Lunesta] AdvReac Unknown Unverified 09/12/22 12:04 morphine sulfate AdvReac Unknown Unverified 09/12/22 12:04 [From MS Contin] trazodone AdvReac Unknown Unverified 09/12/22 12:04 zolpidem tartrate AdvReac Unknown Unverified 09/12/22 12:04 [From Rashel] General Stated Complaint: RespSymp SAMANTHA: 4 Review of Systems All systems reviewed & are unremarkable except as noted in HPI and below Respiratory Respiratory: Reports cough and Reports excessive phlegm production Gastrointestinal Gastrointestinal: Denies abdominal pain, Denies diarrhea, Denies nausea and Denies vomiting PFSH All Active Problems (Updated 09/12/22 @ 14:09 by Osiris Arellano NP) URI (upper respiratory infection) (Acute) Spondylosis without myelopathy or radiculopathy, lumbar region (Chronic) Medical History (Updated 09/12/22 @ 14:09 by Osiris Arellano NP) Anemia Anxiety Attention deficit disorder (ADD) without hyperactivity Back pain Chronic fatigue syndrome Congenital finger anomaly Cyclical vomiting Depression History of pneumonia HSV infection Hx of substance abuse IBS (irritable bowel syndrome) Low back pain Mold exposure Mood disorder Muscle spasm Onychomycosis of toenail Peripheral neuropathy Pernicious anemia Post traumatic stress disorder Psychogenic dyspareunia Recurrent respiratory infection Scoliosis Skin lesion Sleep disturbance Vaginal irritation Vertigo Wart Weight loss Social History Smoking/Tobacco Use Status: Current every day Smoking risk assessment performed?: Yes Alcohol Intake: never Drug use: Current Sobriety Do you feel safe at home: Yes Do you feel safe in your relationship?: Yes Exam Narrative Exam Narrative: Constitutional: Alert and oriented x3. Appears stated age. Normal body habitus. Head: Normocephalic, no trauma. Eyes: Pupils PERRL, Red reflex noted, EOM's intact. Eyelids symmetrical without lesions, discharge, or swelling. ENT: Bilateral TM's WNL, External ear normal to inspection, no mastoid TTP, swelling, or erythema, Nasal turbinates WNL, no nasal discharge. Normal dentition, Posterior pharynx slightly erythemic, no exudate. Chest: RRR, Normal S1, S2, distal pulses intact. Resp: Lungs mild scattered expiratory wheezes on the right, clear on the left. Abdomen: Soft, non-distended, Normoactive bowel sounds all 4 quads. Musculoskeletal: Normal gait, 5/5 strength to all four extremities. Skin: No suspicious rashes or lesions. Capillary refill less than 2 sec. Neurologic: Cranial nerves II-XII intact. Alert and oriented x 3. Motor: No deficits noted. Hematologic/Lymphatic: No ecchymosis, no lymphadenopathy. Course Vital Signs Vital signs: Vital Signs Temperature 37.1 C 09/12/22 11:58 Pulse 100 H 09/12/22 11:58 Respiratory Rate 20 09/12/22 11:58 Blood Pressure 115/68 09/12/22 11:58 Pulse Oximetry 99 09/12/22 11:58 Temperature 37.1 C 09/12/22 11:58 Temperature Source Oral 09/12/22 11:58 Pulse 100 H 09/12/22 11:58 Respiratory Rate 20 09/12/22 11:58 Respiratory Effort Non-Labored 09/12/22 12:03 Blood Pressure 115/68 09/12/22 11:58 Blood Pressure Position Sitting 09/12/22 11:58 Pulse Oximetry 99 09/12/22 11:58 Oxygen Delivery Method Room Air 09/12/22 11:58 Oxygen Flow Rate 0 09/12/22 11:58 Pain Level 0 09/12/22 11:58
== END 2022-09-12 14:22 | disposition home or self-care (01) ==
PROVIDERS: Emergency Provider Registered Nurse Emergency; PCP Family Medicine
DX: J06.9 Acute upper respiratory infection, unspecified (principal); R05.1 Acute cough; R91.8 Other nonspecific abnormal finding of lung field
CPT/HCPCS: 99283; 71046

== ENCOUNTER 2023-03-01 15:56 | Outpatient (REF) | payer MEDICAID, SELFPAY ==
[2023-03-01 19:55] LABS: ALT 33 U/L (14-59); AST 25 U/L (15-37); Albumin 3.7 g/dL (3.4-5.0); Alkaline Phosphatase 81 U/L (46-116); Anion Gap 11.4 mmol/L (3-11); BUN 19 mg/dL (7-18); Bilirubin, Total 0.2 mg/dL (0.2-1.0); CO2 25.6 mmol/L (21.0-32.0); CREATININE 1.1 mg/dL (0.55-1.02); Calcium 9.2 mg/dL (8.5-10.1); Chloride 106 mmol/L (98-107); Estimated GFR 64.34 (mL/min/1.73m2); Glucose 104 mg/dL (74-106); Potassium 4.4 mmol/L (3.5-5.1); Sodium 143 mmol/L (136-145); TSH (W/Ref FT4) 1.41 uIU/mL (0.36-3.74); Total Protein 7.4 g/dL (6.4-8.2)
== END 2023-03-01 15:57 | disposition home or self-care (01) ==
LOC: NCHCN 15:56
PROVIDERS: PCP Family Medicine; Visit Provider Registered Nurse
DX: E03.9 Hypothyroidism, unspecified (principal)
CPT/HCPCS: 80053; 84443; 85025

== ENCOUNTER 2023-05-01 17:11 | Outpatient (REF) | payer MEDICAID, SELFPAY ==
[2023-05-05 05:41] LABS: Benzoylecgonine 111 ng/mL (Cutoff: 50); Cocaine Negative ng/mL (Cutoff: 50); Cocaine Interpretation Positive.
== END 2023-05-01 17:12 | disposition home or self-care (01) ==
LOC: NCHCN 17:11
PROVIDERS: PCP Family Medicine; Visit Provider Family Medicine
DX: F19.20 Other psychoactive substance dependence, uncomplicated (principal); R78.5 Finding of other psychotropic drug in blood; R82.5 Elevated urine levels of drugs, medicaments and biological substances
CPT/HCPCS: 80353; 82520

== ENCOUNTER → 2023-05-07 03:24 | Outpatient (CLI) | payer MEDICAID, SELFPAY ==
--- NOTE | 2023-05-07 | DI.RAD_ITS ---
Exam(s) XR CHEST 2V PA LATERAL EXAM: XR CHEST 2V PA LATERAL CLINICAL HISTORY: F/U NODULAR DENSITY, LT NODULE, R91.1 TECHNIQUE: 2D digital imaging was performed of the chest. Two images were obtained. PA and lateral views were obtained. COMPARISON: CR XR CHEST 2V PA LATERAL from 09/12/2022 FINDINGS: MEDIASTINUM: Normal. HEART: Normal. PULMONARY VASCULATURE: Normal. LUNGS: Clear. The nodule in the lateral aspect of the left lung is not present on the current examin ation. PLEURAL SPACE: No pleural effusion or pneumothorax. BONE:Within normal limits for the patient's age. OTHER FINDINGS:Normal. IMPRESSION: 1. No acute pulmonary findings. 2. The left lung nodule could not be seen on the current examination. A CT scan should be considered to document resolution of the nodule. DATA REPOSITORY: RADIATION DOSE DELIVERED:
== END ==
PROVIDERS: PCP Family Medicine; Visit Provider Family Medicine
DX: R91.1 Solitary pulmonary nodule (principal)
CPT/HCPCS: 71046

== ENCOUNTER 2023-05-17 10:42 | Outpatient (REF) | payer MEDICAID, SELFPAY ==
[2023-05-24 12:35] LABS: Benzoylecgonine Negative ng/mL (Cutoff: 50); Cocaine Negative ng/mL (Cutoff: 50); Cocaine Interpretation Negative.
[2023-05-25 00:46] LABS: 2-OH-Ethyl-Flurazepam Negative ng/mL (Cutoff: 10); 7-NH-Clonazepam Negative ng/mL (Cutoff: 10); 7-NH-Flunitrazepam Negative ng/mL (Cutoff: 10); Alpha OH-Alprazolam Negative ng/mL (Cutoff: 10); Alpha-OH Midazolam Negative ng/mL (Cutoff: 10); Alpha-OH-Triazolam Negative ng/mL (Cutoff: 10); Alprazolam Negative ng/mL (Cutoff: 10); Benzodiazepines Interpretation Positive.; Chlordiazepoxide Negative ng/mL (Cutoff: 10); Clobazam Negative ng/mL (Cutoff: 10); Clonazepam Negative ng/mL (Cutoff: 10); Diazepam Negative ng/mL (Cutoff: 10); Flurazepam Negative ng/mL (Cutoff: 10); Lorazepam Negative ng/mL (Cutoff: 10); Midazolam Negative ng/mL (Cutoff: 10); N-Desmethylclobazam Negative ng/mL (Cutoff: 10); Prazepam Negative ng/mL (Cutoff: 10); Temazepam 15783 ng/mL (Cutoff: 10); Triazolam Negative ng/mL (Cutoff: 10); Zolpidem Carboxylic acid Negative ng/mL (Cutoff: 10)
== END 2023-05-17 10:43 | disposition home or self-care (01) ==
LOC: NCHCN 10:42
PROVIDERS: PCP Family Medicine; Visit Provider Family Medicine
DX: Z51.81 Encounter for therapeutic drug level monitoring (principal)
CPT/HCPCS: 80346; 80353

== ENCOUNTER 2023-06-20 15:29 | Outpatient (REF) | payer MEDICAID, SELFPAY ==
[2023-06-25 11:37] LABS: Benzoylecgonine 802 ng/mL (Cutoff: 50); Cocaine Negative ng/mL (Cutoff: 50); Cocaine Interpretation Positive.
== END 2023-06-20 15:30 | disposition home or self-care (01) ==
LOC: NCHCN 15:29
PROVIDERS: PCP Family Medicine; Visit Provider Family Medicine
DX: F19.10 Other psychoactive substance abuse, uncomplicated (principal); Z51.81 Encounter for therapeutic drug level monitoring
CPT/HCPCS: 80353

== ENCOUNTER 2023-12-24 20:16 | Emergency (ER) | payer MEDICAID, SELFPAY ==
[2023-12-24 20:20] VITALS: BP 143/65; PULSE 92; TEMP 36.6; O2SAT 98
--- NOTE | 2023-12-24 20:55 | ED.GENADUL_ITS ---
Discharge Plan Disposition Patient Disposition: Home Discharge Details Clinical Impression: Acute opioid withdrawal Primary Care Provider: Sophia Edwards V ED Provider: Carina Blanco Home Meds and New Rx's Prescriptions: No Action tyrosine 500 MG capsule 1,000 mg PO DAILY cholecalciferol (vitamin D3) 1,000 UNIT capsule 2,000 unit PO DAILY lisdexamfetamine [Vyvanse] 40 MG capsule 40 mg PO DAILY Hold Instructions: not taking lisdexamfetamine [Vyvanse] 70 MG capsule 70 mg PO QAM Hold Instructions: not taking reporte patient polyethylene glycol 3350 17 GM powder in packet 17 gm PO DAILY PRN PRN methocarbamol 750 MG tablet 750 mg PO HS PRN cyanocobalamin (vitamin B-12) 1,000 MCG/ML solution 1,000 mcg IJ .Q3WKS chlordiazepoxide-clidinium [Librax (with clidinium)] 1 CAP capsule 1 ea PO DAILY PRN PRN levonorgestrel-ethinyl estrad [Introvale] 1 EACH tablets,dose pack,3 month 1 ea PO DAILY lysine HCl 500 MG tablet 500 mg PO DAILY clonidine HCl 0.1 MG tablet extended release 12 hr 0.1 mg PO HS PRN PRN ondansetron 4 mg tablet,disintegrating 4 mg PO TID Qty: 8 0RF quetiapine [Seroquel] 100 mg Tablet 100 mg PO HS mupirocin 2 % ointment 1 applic TP BID Qty: 15 0RF Discharge Instructions Additional Instructions: Please call your primary care provider's office first thing in the morning to schedule follow-up appointment. I recommend that you discuss managing your anxiety as well as your opioid withdrawal. Stay well-hydrated. Continue taking your medications as prescribed. I encourage you to keep your mind busy with coloring books or word puzzles or other enjoyable activities. Meditations may also be helpful (apps such as [employer] Timer are free with plenty of options). You may use Immodium available over hte counter as needed for diarrhea. Tylebol may be helpful for muscle aches (650 mg every 6 hours) or ibuprofen (400 mg every 6 hours). A quiet and supportive environment is encouraged. Be sure to reach out to your instructional technology coach as discussed. Return to emergency care if you develop inability to hold down fluids, dehydration, or if you are very worried and need to be rechecked again immediately. Referrals: Sophia Edwards MD [Primary Care Provider] - [facility] General Date/Time Provider Initiated Documentation: 12/24/23 20:28 . HPI Narrative: Karon is a 43-year-old female presents to the emergency department today accompanied by her cousin for evaluation of opioid withdrawal symptoms. She reports that she has a history of opioid addiction, has been clean from heroin for 11 years. A couple of weeks ago she started using fentanyl, says she has been using every 4 hours, says she has been using large doses. She decided she wanted to stop using fentanyl, last used at 1 pm today. She currently reports feeling hot all over, feeling like she is crawling out of her skin, and anxiety. Denies fever/chills, congestion/rhinorrhea, shortness of breath, chest pain, abdominal pain, diarrhea. She also would like some sores on her skin checked out from where she has been injecting IV fentanyl. No drainage from sores. She is followed by Dr Edwards. Related Data Home Medications Medication Instructions Recorded Confirmed lisdexamfetamine 70 mg capsule 70 mg PO QAM 12/10/12 12/24/23 (Vyvanse) chlordiazepoxide-clidinium 5 1 ea PO DAILY PRN PRN 04/07/16 12/24/23 mg-2.5 mg capsule (Librax (with clidinium)) clonidine HCl 0.1 mg 0.1 mg PO HS PRN PRN 04/07/16 12/24/23 tablet,extended release,12 hr cyanocobalamin (vitamin B-12) 1,000 mcg IJ .Q3WKS 04/07/16 12/24/23 1,000 mcg/mL injection solution levonorgestrel 0.15 mg-ethinyl 1 ea PO DAILY 04/07/16 12/24/23 estradiol 30 mcg tablets,3 mos pack(91) (Introvale) lysine HCl 500 mg tablet 500 mg PO DAILY 04/07/16 12/24/23 methocarbamol 750 mg tablet 750 mg PO HS PRN 04/07/16 12/24/23 polyethylene glycol 3350 17 gram 17 gm PO DAILY PRN PRN 04/07/16 12/24/23 oral powder packet cholecalciferol (vitamin D3) 25 2,000 unit PO DAILY 04/06/18 12/24/23 mcg (1,000 unit) capsule lisdexamfetamine 40 mg capsule 40 mg PO DAILY 04/06/18 12/24/23 (Vyvanse) tyrosine 500 mg capsule 1,000 mg PO DAILY 04/06/18 12/24/23 mupirocin 2 % topical ointment 1 applic topical BID #15 grams 06/28/19 12/24/23 quetiapine 100 mg tablet (Seroquel) 100 mg PO HS 06/28/19 12/24/23 ondansetron 4 mg disintegrating 4 mg PO TID #8 tabs 07/31/22 12/24/23 tablet Previous Rx's Medication Instructions Recorded mupirocin 2 % topical ointment 1 applic topical BID #15 grams 06/28/19 ondansetron 4 mg disintegrating 4 mg PO TID #8 tabs 07/31/22 tablet Allergies Allergy/AdvReac Type Severity Reaction Status Date / Time diphenhydramine HCl Allergy Severe Anaphylaxsi Unverified 12/24/23 20:59 [From Benadryl] s duloxetine HCl Allergy Intermediate hallucination, Verified 12/24/23 20:59 [From Cymbalta] fever, stomach pain, sweating,vomitting eszopiclone [From Lunesta] AdvReac Unknown airway Verified 12/24/23 20:59 morphine sulfate AdvReac Unknown Agitation Verified 12/24/23 20:59 [From MS Contin] trazodone AdvReac Unknown Agitation Verified 12/24/23 20:59 zolpidem tartrate AdvReac Unknown Dizziness/L Verified 12/24/23 20:59 [From Ambien] ighthead General Stated Complaint: DrugWithdr/MAT SAMANTHA: 3 Review of Systems Narrative: see HPI Exam Const General: cooperative and anxious Orientation: alert HENMT Teeth and gingiva: poor dentition Resp Effort & Inspection: normal respiratory effort and able to speak in complete sentences Auscultation: clear to auscultation bilaterally Cardio Rate: regular rate Rhythm: regular rhythm GI Palpation: soft and nontender Auscultation: normal bowel sounds Skin Lesions: lesion noted (R AC, small (<1 cm diameter erythematous lesion, no active drainage)) Course Vital Signs Vital signs: Vital Signs Temperature 36.6 C 12/24/23 20:20 Pulse 92 H 12/24/23 20:20 Blood Pressure 143/65 H 12/24/23 20:20 Pulse Oximetry 98 12/24/23 20:20 Temperature 36.6 C 12/24/23 20:20 Temperature Source Temporal Artery Scan 12/24/23 20:20 Pulse 92 H 12/24/23 20:20 Respiratory Effort Normal, Non-Labored 12/24/23 20:23 Respiratory Pattern Normal 12/24/23 20:26 Blood Pressure 143/65 H 12/24/23 20:20 Pulse Oximetry 98 12/24/23 20:20 Pain Level 8 12/24/23 20:20 Medical Decision Making Karon is a 43-year-old female presents to the emergency department today accompanied by her cousin for evaluation of opioid withdrawal symptoms. She reports that she has a history of opioid addiction, has been clean from heroin for 11 years. A couple of weeks ago she started using fentanyl, says she has been using every 4 hours, says she has been using large doses. She decided she wanted to stop using fentanyl, last used at 1 pm today. She currently reports feeling hot all over, feeling like she is crawling out of her skin, and anxiety. Denies fever/chills, congestion/rhinorrhea, shortness of breath, chest pain, abdominal pain, diarrhea. She also would like some sores on her skin checked out from where she has been injecting IV fentanyl. No drainage from sores. She is followed by Dr Edwards. Physical exam remarkable for significantly anxious patient who is able to respond appropriately to questions and cooperate with physical exam. Small erythematous lesion noted to R AC, no drainage, warmth, surrounding erythema, or tenderness with palpation. Easy work of breathing, lung sounds clear bilaterally. Tachycardia noted. Abdomen is soft, nondistended, nontender to palpation. History and presentation consistent with opioid withdrawal from fentanyl use. No concern for cellulitis at this time requiring antibiotics. While in the emergency department Karon received p.o. Ativan and nighttime dose of clonidine with full improvement in symptoms. She has declined Suboxone, says she is not interested in treating 1 addiction for another. She does have a history of Suboxone and methadone use, says she has had to detox from both of these. [facility] instructional technology coach contacted patient, she will follow-up. Recommend follow-up with PCP for management of anxiety. Reviewed symptomatic management with patient. She does have good support at home, is staying with her aunt. Quality:SDOH Health Related Social Needs: No Data to Display PFSH All Active Problems (Updated 12/24/23 @ 22:21 by Carina Tony) Acute opioid withdrawal (Acute) Spondylosis without myelopathy or radiculopathy, lumbar region (Chronic) Medical History (Updated 12/24/23 @ 22:21 by Carina Tony) IBS (irritable bowel syndrome) Vaginal irritation Wart Mold exposure Hx of substance abuse HSV infection Recurrent respiratory infection Weight loss Vertigo Cyclical vomiting Congenital finger anomaly Skin lesion Peripheral neuropathy History of pneumonia Chronic fatigue syndrome Attention deficit disorder (ADD) without hyperactivity Depression Back pain Anxiety Pernicious anemia Anemia Mood disorder Sleep disturbance Muscle spasm Scoliosis Low back pain Post traumatic stress disorder Psychogenic dyspareunia Onychomycosis of toenail Social History Smoking/Tobacco Use Status: Current every day Tobacco Type: cigarettes Smoking risk assessment performed?: Yes Alcohol Intake: never Drug use: Daily Substance use type: opiates and IV drugs Details: patient reported she used fentanyl at about 1pm today and she generally uses fentanyl 4-5 times per day Housing: apartment Do you feel safe at home: Yes Do you feel safe in your relationship?: Yes
[2023-12-24] MEDS: cloNIDine 0.1 MG TAB 0.2 MG PO (21:00)
[2023-12-24] MEDS: LORazepam 0.5 MG TAB PO (21:00)
--- NOTE | 2023-12-24 23:06 | NUR.NOTE ---
Pt placed on care management referral list for Opioid withdraw and Anxiety to be seen within [address] Arango per ED ALIGNMENT [employer]CH[employer]IC Trina Nursing Note:
== END 2023-12-24 22:30 | disposition home or self-care (01) ==
PROVIDERS: Emergency Provider Nurse Practitioner Family; PCP Family Medicine
DX: F19.130 Other psychoactive substance abuse with withdrawal, uncomplicated (principal); F17.210 Nicotine dependence, cigarettes, uncomplicated
CPT/HCPCS: 99283

== ENCOUNTER 2023-12-25 19:09 | Emergency (ER) | payer MEDICAID, SELFPAY ==
[2023-12-25 19:13] VITALS: BP 130/80; PULSE 75; RESP 14; TEMP 36.6
--- NOTE | 2023-12-25 19:34 | W.ED.GENAD ---
Discharge Plan Discharge Details Chief Complaint: Anxiety Clinical Impression: Opioid withdrawal without complication, Suicidal ideation Primary Care Provider: Sophia Edwards V ED Provider: Juancho Zaidi Home Meds and New Rx's Prescriptions: No Action levonorgestrel-ethinyl estrad [Introvale] 1 EACH tablets,dose pack,3 month 1 ea PO DAILY clonidine HCl 0.1 MG tablet extended release 12 hr 0.1 mg PO .q8 hr PRN gabapentin 600 mg tablet 600 mg PO BID HPI General Date/Time Provider Initiated Documentation: 12/25/23 19:29. HPI Narrative: 43 year-old female presents to ED today by POV/ambulating with her aunt with a chief complaint of detox'ing from fentanyl, being evicted from her apartment by her father- where she lives with her boyfriend, states she has severe SI and her aunts couldn't effectively supervise her, states she would cut herself with anything with onset since starting opioid withdrawal syndrome, last use 24 hours ago. Quality described as feels nauseous, has chills/fever, no radiation to shortness of breath, chest pain, black/bloody stools. Severity is described as 10/10. Palliating factors include nothing specific attempted. Provoking factors include nothing specific. Events leading up to the incident/Associated Symptoms: Patient states she would like placement for detox. Patient not anticoagulated. Related Data Home Medications Medication Instructions Recorded Confirmed clonidine HCl 0.1 mg 0.1 mg PO .q8 hr PRN 04/07/16 12/25/23 tablet,extended release,12 hr levonorgestrel 0.15 mg-ethinyl 1 ea PO DAILY 04/07/16 12/25/23 estradiol 30 mcg tablets,3 mos pack(91) (Introvale) gabapentin 600 mg tablet 600 mg PO BID 12/25/23 12/25/23 Allergies Allergy/AdvReac Type Severity Reaction Status Date / Time diphenhydramine HCl Allergy Severe Anaphylaxsi Unverified 12/24/23 20:59 [From Benadryl] s duloxetine HCl Allergy Intermediate hallucination, Verified 12/24/23 20:59 [From Cymbalta] fever, stomach pain, sweating,vomitting eszopiclone [From Lunesta] AdvReac Unknown airway Verified 12/24/23 20:59 morphine sulfate AdvReac Unknown Agitation Verified 12/24/23 20:59 [From MS Contin] trazodone AdvReac Unknown Agitation Verified 12/24/23 20:59 zolpidem tartrate AdvReac Unknown Dizziness/L Verified 12/24/23 20:59 [From Ambien] ighthead General Stated Complaint: Anxiety SAMANTHA: 2 Review of Systems All systems reviewed & are unremarkable except as noted in HPI and below Exam Narrative Exam Narrative: GENERAL APPEARANCE: Well-nourished, non-toxic, awake and alert, atraumatic, no acute distress. SKIN: Warm, pink, dry, intact, without rashes/lesions/ulcerations. HEAD: Normocephalic, atraumatic, normal hair distribution for gender/age. EYES: Pupils PERRLA, EOMs intact without nystagmus, normal conjunctiva, no exudates on lids/lashes. ENT: Nares patent, no circumoral cyanosis, no facial swelling NECK: Supple, trachea midline, painless cervical ROM. LUNGS/CHEST: Lungs CTA bilaterally- no rhonchi/rales/wheezes diffusely, non-labored respirations, normal A/P diameter, symmetrical expansion, no chest wall deformity HEART (CV/PV): Regular rate and rhythm without murmur, no peripheral edema, no JVD. ABDOMEN: Soft, non-distended, no guarding, no tenderness. MSK: Normal ROM, no swelling/deformity to bilateral UEs or LEs, moving all extremities without weakness, no cyanosis, spine midline without tenderness, normal curvature. NEURO: Mental Status AAOx4 - alert to person, place, time, events No facial droop, no forehead involvement. Motor: No focal weakness - strength 5/5 in bilateral UEs and LEs, proximal and distal, symmetric. Sensory: sensation intact to light touch globally. Gait normal: patient ambulated without ataxia into ED room. PSYCH: dysthymic, uncooperative, unpleasant, appropriate speech, histrionic screaming/moaning randomly that stops completely with calm responses to HPI questioning. Course Vital Signs Vital signs: Vital Signs Temperature 36.6 C 12/25/23 19:13 Pulse 75 12/25/23 19:13 Respiratory Rate 14 12/25/23 19:13 Blood Pressure 130/80 12/25/23 19:13 Temperature 36.6 C 12/25/23 19:13 Temperature Source Tympanic 12/25/23 19:13 Pulse 75 12/25/23 19:13 Respiratory Rate 14 12/25/23 19:13 Respiratory Effort Normal 12/25/23 19:22 Respiratory Depth Normal 12/25/23 19:22 Respiratory Pattern Normal 12/25/23 19:22 Blood Pressure 130/80 12/25/23 19:13 Blood Pressure Position Supine 12/25/23 19:13 Oxygen Delivery Method Room Air 12/25/23 19:13 Oxygen Flow Rate 0 12/25/23 19:13 Pain Level 10 12/25/23 19:13 Comment Detox, pain 06/2612/25/23 19:13 Medical Decision Making This dictation utilizes [id number] dictation software and may contain unedited grammatical errors. 43 y/o F presents to ED today with a chief complaint of fentanyl withdrawal, SI, wants placement for detox- family states its too much for them to handle due to her severity of moaning/screaming, though she quickly calms when engaged in HPI questioning. Patient states she would cut herself with anything. Patients' medical history: History of substance abuse, IBS, cyclical vomiting, depression, mood disorder, PTSD. Family and social history: Last IVDU 24 hrs ago, patient denies ETOH, actively being evicted from apartment. Pertinent exam findings / vital signs include benign abdomen, benign cardiopulmonary status, neuro intact, histrionic. Differential / pathologies of concern include opioid withdrawal syndrome, suicidal ideation, mood disorder. Diagnostic studies of: -CBC, CMP, POC urine test, UA, acetaminophen level, salicylate level. -Patient not cooperative, landfill gas technician was unable to get much blood prioritize getting a CMP performed -POC urine negative -POC COVID flu antigen negative -UA shows UTI, giving IM ceftriaxone Interventions of: -IM Ceftriaxone for UTI, [facility] consult. ED Course/Assessment/Plan: 43-year-old histrionic female with exaggerated presentation of opioid withdrawal syndrome seen here yesterday for similar complaint presents stating that she does not want to go on living due to the severity of her withdrawal syndrome, she denies chest pain, denies active vomiting, she immediately calms down when engaging in any HPI questioning and does not appear to be tremulous or in any active withdrawal or diaphoretic. Did not provide Suboxone or buprenorphine for this reason. The patient has a UTI on medical workup but is otherwise medically cleared for [facility] evaluation. I would encourage the patient to specify what is more important to her in regards to admission for suicidal ideation or for detox. Findings not consistent with active severe withdrawal. Disposition of Opioid Withdrawal without Complication, Suicidal Ideation. Patient verbalized understanding of the plan and return to ED criteria and engaged in shared decision making. Medical Records Medical records reviewed: Yes I reviewed the patient's medical records. Lab Data Lab results reviewed: Yes I reviewed the patient's lab results. Labs: Laboratory Tests Range/Units 12/25/23 12/25/23 12/25/23 20:20 20:49 21:05 WBC (4.4-10.8) 10^3/uL 7.13 RBC (3.93-5.22) 10^6/uL 4.79 Hgb (11.2-15.7) g/dL 14.9 Hct (36.0-46.0) % 44.2 MCV (80-95) fL 92 MCH (27.0-33.0) pg 31.1 MCHC (32.0-36.0) % 33.7 RDW (11.7-14.6) % 12.9 Plt Count (130-400) 10^3/uL 367 MPV (8.0-11.0) fL 9.0 Immature Gran % 0.4 Neutrophils % 77.7 Lymphocytes % 17.7 Monocytes % 3.5 Eosinophils % 0.1 Basophils % 0.6 Nucleated RBC % (0.0-0.3) % 0.0 Absolute Neutrophils (1.2-6.7) 10^3/uL 5.54 Absolute Lymphocytes (1.2-3.4) 10^3/uL 1.26 Absolute Monocytes (0.1-0.8) 10^3/uL 0.25 Absolute Eosinophils (0.0-0.7) 10^3/uL 0.01 Absolute Basophils (0.0-0.2) 10^3/uL 0.04 Sodium (136-145) mmol/L 139 Potassium (3.5-5.1) mmol/L 3.8 Chloride (98-107) mmol/L 105 Carbon Dioxide (21.0-32.0) mmol/L 21.0 Anion Gap (3-11) mmol/L 13.0 H BUN (7-18) mg/dL 16 Creatinine (0.55-1.02) mg/dL 1.1 H Est GFR (CKD-EPI 2020) (mL/min/1.73m2) 64.34 Glucose (74-106) mg/dL 104 Calcium (8.5-10.1) mg/dL 9.0 Magnesium (1.8-2.4) mg/dL 2.2 Total Bilirubin (0.2-1.0) mg/dL 0.5 AST (15-37) U/L 15 ALT (14-59) U/L 20 Alkaline Phosphatase (46-116) U/L 71 Total Protein (6.4-8.2) g/dL 7.7 Albumin (3.4-5.0) g/dL 3.8 Lipase (16-77) U/L 25 Urine Color (Yellow) Yellow Urine Clarity (Clear) Cloudy Urine pH (5-8) 6.5 Ur Specific Admire (1.005-1.025) 1.010 Urine Protein (Neg-Trace) mg/dL Negative Urine Ketones (Negative) mg/dL Negative Urine Blood (Negative) Trace-lysed H Urine Nitrite (Negative) Positive H Urine Bilirubin (Negative) Negative Urine Urobilinogen (Up to 0.2) mg/dL 0.2 Ur Leukocyte Esterase (Negative) Trace H Urine RBC (0-2) HPF Negative Urine WBC (0-5) HPF 3-5 Ur Epithelial Cells (Negative) HPF Few Urine Crystals (Negative) HPF Negative Urine Bacteria (Negative) HPF Moderate Urine Casts (Negative) LPF Negative Urine Mucus (Negative) Negative Urine Other (Negative) Rare Transitional Ur Culture Indicated? No Urine Glucose (Negative) mg/dL Negative Salicylates (<2.8) mg/dL 7.3 Urine Opiates Screen (Negative) Negative Urine Methadone Screen (Negative) Negative Acetaminophen (10-30) ug/mL < 2 Ur Barbiturates Screen (Negative) Negative Ur Tricyclics Screen (Negative) Negative Ur Amphetamines Screen (Negative) Negative U Benzodiazepines Scrn (Negative) Negative Urine Cocaine Screen (Negative) Negative Ur THC Screen (Negative) Negative Quality:SDOH Health Related Social Needs: No Data to Display PFSH All Active Problems (Updated 12/25/23 @ 21:43 by BRIDGER Pedroza) Suicidal ideation (Acute) Opioid withdrawal without complication (Acute) Acute opioid withdrawal (Acute) Spondylosis without myelopathy or radiculopathy, lumbar region (Chronic) Medical History (Updated 12/25/23 @ 21:43 by BRIDGER Pedroza) IBS (irritable bowel syndrome) Vaginal irritation Wart Mold exposure Hx of substance abuse HSV infection Recurrent respiratory infection Weight loss Vertigo Cyclical vomiting Congenital finger anomaly Skin lesion Peripheral neuropathy History of pneumonia Chronic fatigue syndrome Attention deficit disorder (ADD) without hyperactivity Depression Back pain Anxiety Pernicious anemia Anemia Mood disorder Sleep disturbance Muscle spasm Scoliosis Low back pain Post traumatic stress disorder Psychogenic dyspareunia Onychomycosis of toenail Social History Smoking/Tobacco Use Status: Current every day Tobacco Type: cigarettes Smoking packs per day: 1 Smoking cigarettes per day: 20.0 Years smoked: 20 Smoking pack-years: 20.00 Tobacco: How many years used: 20 Smoking risk assessment performed?: Yes Alcohol Intake: never Drug use: Daily Substance use type: opiates and IV drugs Details: patient reported she used fentanyl at about 1pm today and she generally uses fentanyl 4-5 times per day Housing: house Do you feel safe at home: No Do you feel safe in your relationship?: Yes Sign Out Sign Out Data: Sign Out Comment: Patient here for fentanyl withdrawal - no physical symptoms of active withdrawal. UA on medical work-up, giving Keflex. Otherwise medically clear. States SI but likely just due to her withdrawal syndrome, which is mild to moderate at best. Quickly redirected with questioning. [facility] will see qAM. Last updated by Juancho Zaidi PA at 12/25/23 21:57
[2023-12-25] MEDS: Ondansetron O.D.T. 4 MG TABEF PO (19:46)
[2023-12-25] MEDS: cloNIDine 0.1 MG TAB PO (19:46)
[2023-12-25 20:39] LABS: Bilirubin Negative (Negative); Blood Trace-lysed (Negative); Clarity Cloudy (Clear); Glucose Negative (Negative); Ketones Negative (Negative); Leukocyte Esterase Trace (Negative); Nitrite Positive (Negative); Urobilinogen 0.2 mg/dL (Up to 0.2); pH 6.5 (5-8)
[2023-12-25 20:43] LABS: *AMPHETAMINES SCREEN URINE Negative (Negative); *BARBITURATES SCREEN URINE Negative (Negative); *BENZODIAZEPINES SCREEN URINE Negative (Negative); Cannabinoids THC Negative (Negative); Cocaine Screen,Urine Negative (Negative); METHADONE URINE SCREEN Negative (Negative); OPIATES URINE SCREEN Negative (Negative); Tricyclic Antidepressants Negative (Negative)
[2023-12-25 20:47] LABS: Bacteria Moderate HPF (Negative); C & S Indicated? No; Casts Negative LPF (Negative); Crystals Negative HPF (Negative); Epithelial Cells Few HPF (Negative); Mucus Negative (Negative); Other Cells Rare Transitional (Negative); RBC Negative HPF (0-2)
[2023-12-25 21:07] LABS: ALT 20 U/L (14-59); AST 15 U/L (15-37); Albumin 3.8 g/dL (3.4-5.0); Alkaline Phosphatase 71 U/L (46-116); BUN 16 mg/dL (7-18); Bilirubin, Total 0.5 mg/dL (0.2-1.0); CREATININE 1.1 mg/dL (0.55-1.02); Chloride 105 mmol/L (98-107); Estimated GFR 64.34 (mL/min/1.73m2); Glucose 104 mg/dL (74-106); Magnesium 2.2 mg/dL (1.8-2.4); Potassium 3.8 mmol/L (3.5-5.1); Sodium 139 mmol/L (136-145); Total Protein 7.7 g/dL (6.4-8.2)
[2023-12-25 21:14] LABS: Abs Immature Grans 0.03 10^3/uL (0.0-0.06); Absolute Basophil Count 0.04 10^3/uL (0.0-0.2); Absolute Eosinophil Count 0.01 10^3/uL (0.0-0.7); Absolute Lymphocyte Count 1.26 10^3/uL (1.2-3.4); Absolute Monocyte Count 0.25 10^3/uL (0.1-0.8); Absolute Neutrophil Count 5.54 10^3/uL (1.2-6.7); Basophils % 0.6; Eosinophils % 0.1; HCT 44.2 % (36.0-46.0); HGB 14.9 g/dL (11.2-15.7); Immature Grans % 0.4; Lymphocytes % 17.7; MCH 31.1 pg (27.0-33.0); MCHC 33.7 % (32.0-36.0); MCV 92 fL (80-95); Monocytes % 3.5; Neutrophils % 77.7; Platelet Count 367 10^3/uL (130-400); RBC 4.79 10^6/uL (3.93-5.22); RDW 12.9 % (11.7-14.6); WBC 7.13 10^3/uL (4.4-10.8)
[2023-12-25 21:26] LABS: Lipase 25 U/L (16-77)
[2023-12-25] MEDS: Cephalexin 500 MG CAP PO (21:26)
[2023-12-25 21:34] LABS: Acetaminophen < 2 ug/mL (10-30); Salicylate 7.3 mg/dL (<2.8)
[2023-12-25 21:42] VITALS: BP 113/75; PULSE 70; RESP 14; O2SAT 98
--- NOTE | 2023-12-25 22:11 | NUR.NOTE ---
Patient presented down to Zone B, screaming intermittently reporting that she is detoxing from fentanyl. Reported that she last took IV fentany yesterday between noon and 1pm. Patient is alert and oriented. repeated says she wants to kill herself because she is detoxing. Patient was asked by this senior grant writer what would help her with her present discomfort she says medicine. MD was informed and MD ordered Hydroxyzine and melatoin. Medications were administered to patient and patient made comfortable in room by DARCY Kennedy, warm blanket was given to patient for comfort. Patient was encouraged to relax and relaxation exercise was demonstrated.
[2023-12-25] MEDS: Melatonin 3 MG TAB PO (22:35)
[2023-12-25] MEDS: hydrOXYzine PAMOATE 25 MG CAP PO (22:35)
[2023-12-25] MEDS: Gabapentin 300 MG CAP 600 MG PO (23:30)
--- NOTE | 2023-12-26 05:43 | NUR.NOTE ---
Patient is crying in consolable stating she want this singer songwriter to call her aunt so that she can go home. [facility] screener was notified according to the interim care plan directives. Patient refused to speak to [facility] screener, keeps saying she wants to leave and we should call her aunt to come and get her. Patient state she needs something to knock her out. Provider was informed, came to further assess patient.
--- NOTE | 2023-12-26 05:53 | W.EDPROG ---
Date of service: 12/26/23 Time of Service: 05:53 Medical Decision Making The patient was seen and reevaluated after she awoke at 4 AM and began screaming again as she had before she fell asleep. The patient is technically voluntary, and according to the interval safety plan, we contacted [facility] to speak to the patient. The patient refused to speak to them and tells me that she has no plans to speak to them in the future. She continues to state that she would like to be knocked out for several days so that she can withdraw from opioids. The patient would like to leave the facility and go to her aunts house where she feels safe. The nursing staff will help try to facilitate contacting the office on the patient's behalf. As the patient continues to be voluntary in the emergency room, she is free to leave if she so chooses. Quality:[facility] Health Related Social Needs: No Data to Display Sign Out Sign Out Data: Sign Out Comment: Patient here for fentanyl withdrawal - no physical symptoms of active withdrawal. UA on medical work-up, giving Keflex. Otherwise medically clear. States SI but likely just due to her withdrawal syndrome, which is mild to moderate at best. Quickly redirected with questioning. [facility] will see qAM. Last updated by Juancho Zaidi PA at 12/25/23 21:57 Sign Out Comment: The patient presented for fentanyl withdrawal with associated suicidal ideation. The patient has no clear clinical evidence of withdrawal. She has a normal heart rate, normal blood pressure, and no other physical findings that would be indicative of fentanyl withdrawal. Likewise, she has no opiates on her UDS. The patient has been screaming, while awake, essentially throughout the entire shift. She refused to speak to [facility] multiple times during the shift. At around 5:30 AM she requested to speak to her aunt, so that she could go to her house where she feels safe. The aunt refused, and contacted the mother, who called to the emergency room to speak to the daughter to encourage her to stay for evaluation. We reached out to [facility] and asked that they do an in person evaluation to further dispo the patient. Last updated by Javed Orosco MD at 12/26/23 07:23 Discharge Plan Disposition Patient Disposition: Home Discharge Details Clinical Impression: Opioid withdrawal without complication, Suicidal ideation Primary Care Provider: Sophia Edwards ED Provider: Antonio Crump Home Meds and New Rx's Prescriptions: Continued levonorgestrel-ethinyl estrad [Introvale] 1 EACH tablets,dose pack,3 month 1 ea PO DAILY clonidine HCl 0.1 MG tablet extended release 12 hr 0.1 mg PO .q8 hr PRN gabapentin 600 mg tablet 600 mg PO BID Discharge Instructions Instructions: Help Prevent Suicide (ED) Additional Instructions: You were seen in the emergency department for your suicidal ideation. You are cleared by the crisis team. If you do not feel comfortable or feel that you cannot be safe please return to the emergency department. Otherwise please follow-up with your primary care provider as needed later this week. Discharge Data Discharge Date/Time-TO BE ENTERED AT DEPARTURE: 12/26/23 11:38
--- NOTE | 2023-12-26 06:53 | NUR.NOTE ---
[facility] screener contacted and this keno writer/runner was informed that MH will be in at approx 8:30 for face to face assessment
--- NOTE | 2023-12-26 07:07 | ED.PROG_ITS ---
Date of service: 12/26/23 Time of Service: 07:08 Medical Decision Making I received signout on this 43-year-old female who was voluntary and medically cleared in the setting of suicidal ideation. No active behavioral issues left shift. Will update documentation as clinically warranted. 10:30 AM I spoke with Jennie from [facility]. She had met with the patient and developed a safety plan which involved telephone check-in's with the patient and outpatient follow-up. I met with the patient. She was calm. She was planning on staying with her aunt. She felt comfortable being discharged. She reported that she was not going to have access to handguns. I advised that if she did not feel comfortable with this plan that she could return to the emergency department. She understood her return indications and was discharged with empiric trial of expectant outpatient management. Quality:[facility] Health Related Social Needs: No Data to Display Sign Out Sign Out Data: Sign Out Comment: Patient here for fentanyl withdrawal - no physical symptoms of active withdrawal. UA on medical work-up, giving Keflex. Otherwise medically clear. States SI but likely just due to her withdrawal syndrome, which is mild to moderate at best. Quickly redirected with questioning. [facility] will see qAM. Last updated by Juancho Zaidi PA at 12/25/23 21:57 Sign Out Comment: The patient presented for fentanyl withdrawal with associated suicidal ideation. The patient has no clear clinical evidence of withdrawal. She has a normal heart rate, normal blood pressure, and no other physical findings that would be indicative of fentanyl withdrawal. Likewise, she has no opiates on her UDS. The patient has been screaming, while awake, essentially throughout the entire shift. She refused to speak to [facility] multiple times during the shift. At around 5:30 AM she requested to speak to her aunt, so that she could go to her house where she feels safe. The aunt refused, and contacted the mother, who called to the emergency room to speak to the daughter to encourage her to stay for evaluation. We reached out to [facility] and asked that they do an in person evaluation to further dispo the patient. Last updated by Javed Orosco MD at 12/26/23 07:23 Discharge Plan Disposition Patient Disposition: Home Discharge Details Clinical Impression: Opioid withdrawal without complication, Suicidal ideation Primary Care Provider: Sophia Edwards V ED Provider: Antonio Crump Home Meds and New Rx's Prescriptions: Continued levonorgestrel-ethinyl estrad [Introvale] 1 EACH tablets,dose pack,3 month 1 ea PO DAILY clonidine HCl 0.1 MG tablet extended release 12 hr 0.1 mg PO .q8 hr PRN gabapentin 600 mg tablet 600 mg PO BID Discharge Instructions Instructions: Help Prevent Suicide (ED) Additional Instructions: You were seen in the emergency department for your suicidal ideation. You are cleared by the crisis team. If you do not feel comfortable or feel that you cannot be safe please return to the emergency department. Otherwise please follow-up with your primary care provider as needed later this week.
[2023-12-26] MEDS: hydrOXYzine PAMOATE 25 MG CAP PO (08:09)
[2023-12-26 08:20] VITALS: BP 132/64; PULSE 63; TEMP 35.9
--- NOTE | 2023-12-26 08:44 | CMSP_ITS ---
Date of service: 12/26/23 Time of Service: 08:45 Care Management Safety Plan Status Status: Voluntary Reason for Wait Reason for Wait: Other Safety Plan Safety Plan: VOLUNTARY FOR INPATIENT PSYCHIATRIC STABILIZATION.? Safety plan has been established with patient, and care team, to adhere to patient goals, identify restrictions based on behavioral status, address nutrition, and determine allowed personal belongings, tools for hygiene and personal care. Determine level of activity including ambulation, level of supervision, visitors, and determine privileges based on behaviors and level of engagement by pt. SAFETY PLAN: 1. Will remain on suicide precautions, in paper clothes 2. Will remain in Zone B under direct supervision of one-on-one staff at all times provided by [employer]; DARCY, HYDROCHL[employer]IC AREA SUPERVISOR medical case worker. 3. May have paper cups, plates, finger foods as well as a cardboard spoon with which to eat meals. 4. Follow [facility] Management of the Admitted Behavioral Health Patient policy. 5. Shower available in Zone B without restriction. 6. Personal belongings-soft items permitted at RN discretion. 7. Visitors- at RN discretion. 8. Activities: soft cart items approved per RN discretion. 9.? Bathroom available in Zone B without restriction. 10. Phone: limited to [facility] cordless phone at RN discretion. Due to VOLUNTARY status, if patient wishes to leave [facility], staff will contact [facility] Crisis Screener ([phone]) and Sport Shoe Spike Assembler ([phone]) as soon as possible. In the event of elopement, notify [facility] Police ([phone]). Patient is currently voluntarily at [facility] and seeking inpatient admission when a bed becomes available. [facility] Frontline Teacher [facility]cl[facility] will continue seeking placement. Please contact the Sport Shoe Spike Assembler ([phone]) and [facility] Teacher [facility]cl[facility] ([phone]) for any needed changes in the Safety Plan. Safety plan has been provided to interdepartmental care team.
--- NOTE | 2023-12-26 08:44 | PDOC.CMSAFE ---
Date of service: 12/26/23 Time of Service: 08:45 Care Management Safety Plan Status Status: Voluntary Reason for Wait Reason for Wait: Other Safety Plan Safety Plan: VOLUNTARY FOR INPATIENT PSYCHIATRIC STABILIZATION.? Safety plan has been established with patient, and care team, to adhere to patient goals, identify restrictions based on behavioral status, address nutrition, and determine allowed personal belongings, tools for hygiene and personal care. Determine level of activity including ambulation, level of supervision, visitors, and determine privileges based on behaviors and level of engagement by pt. SAFETY PLAN: 1. Will remain on suicide precautions, in paper clothes 2. Will remain in Zone B under direct supervision of one-on-one staff at all times provided by [employer]; DARCY, PRODUCT ASSURANCE ENGINEER reporting analyst. 3. May have paper cups, plates, finger foods as well as a cardboard spoon with which to eat meals. 4. Follow [facility] Management of the Admitted Behavioral Health Patient policy. 5. Shower available in Zone B without restriction. 6. Personal belongings-soft items permitted at RN discretion. 7. Visitors- at RN discretion. 8. Activities: soft cart items approved per RN discretion. 9.? Bathroom available in Zone B without restriction. 10. Phone: limited to [facility] cordless phone at RN discretion. Due to VOLUNTARY status, if patient wishes to leave [facility], staff will contact [facility] Crisis Screener ([phone]) and Transit Department Clerk ([phone]) as soon as possible. In the event of elopement, notify [facility] Police ([phone]). Patient is currently voluntarily at [facility] and seeking inpatient admission when a bed becomes available. [facility] Frontline Certified Scrub Tech will continue seeking placement. Please contact the Transit Department Clerk ([phone]) and [facility] Certified Scrub Tech ([phone]) for any needed changes in the Safety Plan. Safety plan has been provided to interdepartmental care team.
[2023-12-26] MEDS: Gabapentin 300 MG CAP 600 MG PO (09:06)
[2023-12-26] MEDS: Nicotine 21 MG/24 HR PATCH TD (09:06)
[2023-12-26 10:38] VITALS: BP 144/87; PULSE 77; TEMP 36.6; O2SAT 100
--- NOTE | 2023-12-26 11:47 | PDOC.CMDIS ---
Date of service: 12/26/23 Time of Service: 11:47 LACE Index Scoring Tool Questions: Length of Stay (in days): 1 Was the patient admitted via the E.D.?: Yes E.D. Visits: 2 Answers: Total Score: 6 Risk of Readmission: Low Risk Care Management Discharge Plan Reason for Hospitalization: SI Discharge Plan: Safety plan was established with [facility] clinician and Karon is discharged home via [facility] private vehicle. Karon will follow up with community providers and [facility] as instructed. Patient/Family Education Needs: Review discharge instructions and plan to return to the ED if needed. Discuss ask me three and plan for close follow up with [facility]. Services Needed at Discharge: Transportation ([facility] private vehicle, coordinated by CM) SDOH Health Related Social Needs: No Data to Display
--- NOTE | 2023-12-26 12:17 | PDOC.MHCN_ITS ---
Date of service: 12/26/23 Time of Service: 12:17 PHQ-9 Over the last 2 weeks, how often have you been bothered by any of the following problems? 1. Little interest or pleasure in doing things: nearly every day 2. Feeling down, depressed, or hopeless: nearly every day 3. Trouble falling or staying asleep, or sleeping too much: nearly every day 4. Feeling tired or having little energy: nearly every day 5. Poor appetite or overeating: nearly every day 6. Feeling bad about yourself - or that you are a failure or have let yourself and your family down: nearly every day 7. Trouble concentrating on things, such as reading the newspaper or watching television: nearly every day 8. Moving or speaking so slowly that other people could have noticed? - Or the opposite - being so fidgety or restless that you have been moving around a lot more than usual: more than half the days 9. Thoughts that you would be better off or of hurting yourself in some way: not at all Total score: 23 If you checked off any problems, how difficult have these problems made it for you to do your work, take care of things at home, or get along with other people?: extremely difficult PHQ-9 Results: Positive Source: Developed by Drs. Rober Camara, Huong Faye, Nguyễn Snow and colleagues, with an educational meg from [employer]. Suicide Severity Rate CSSRS Have you wished you were or wished you could go to sleep and not wake up?: No Have you actually had any thoughts of killing yourself?: No CSSRS3 Have you ever done anything, started to do anything or prepared to do anything to end your life?: No Screening Score Total Score: 0 Screening: Negative Mental Health Emergency Note Release [facility] release signed:: Yes Reason for Visit The client arrived this am stating that she is detoxing. She also made some references of suicide so [facility] is requesting an evaluation. The client is only recently known to [facility] and intake was completed today. She has never been hospitalized per here report. It is unknown when she saw her PCP last. In the last 2 weeks has the pt presented for ES prior to today?: Yes, presented at [facility] ED Client Information Client is: New Well Housed: Yes Non Suicidal Self Injury Current: No History: No Safety Risk/Harm to Self or Others Current Ideation to Harm Self or Others: No Risk: Does risk to harm exist?: No Risk: Low Risk Duty to warn indicated: No Asssessment/Mental Status Appearance: Disheveled Attitude: Cooperative Behavior: Agitated and Repetitive movements Speech: Normal Affect: Cogruent with mood Mood: Depressed and Anxious Thought process: Goal directed Hallucinations: No Delusions: No Attention: Unremarkable Perception: Not impaired Orientation: Fully orientated Memory: Intact Insight: Good Judgement: Good Neurovegetative Symptoms Sleep: Decrease Appetitie: Decrease Interests: Decrease Energy: Decrease Libido: Not applicable Substance Use: Drug Issues: Dependence Have you used substances in the last 7 days?: yes, Heroin Additional Issues: Assaultive/Threatening Behavior: No Medical Concerns: No Client engaged in active self harm w/weapon: No Threatening to run away: No Child reported abuse/neglect: No Voluntarily presenting for services: Yes Domestic violence is a concern: No Extreme Psychosis or extreme behavior is present: No Impression The client denied any previous attempts to by suicide I'm too young to . She did engage in all screening tools to include the CSSRS however, this clinician is not CAMs trained so could not offer that resource. She was not appropriate based on her reports for an inpatient psychiatric hospitalization and is interested in a referral for substance abuse counseling. The client is a 43 year old, single, female who is currently unemployed and lives with her boyfriend in [facility] [place] [facility]. She uses she/her pronouns. All of the client's underrepresented categories were honored during this assessment. The client presented to the ED for symptoms relating to detox. She stated she only made statements of suicide because her aunt told her too so that she would be seen in the ED. She however, to this clinician denied all SI, HI ad NSSI stating she is too young to . She has been detoxing for less than 48 hours per here report. The client agreed with completing a safety plan to include daily check in calls for the next two days with [facility]. Resources Reosurces reviewed and given:: [facility] Plan/Disposition Recommended Disposition: [facility] Services [facility] Services: Therapy and Psychiatric Evaluation, Therapy and Med management. Plan: Client will discharge home on a safety plan. [facility] Person reported agreement to plan: Yes Reports/communication Outcome discussed with: ED/Personnel
== END 2023-12-26 11:38 | disposition home or self-care (01) ==
PROVIDERS: Physician Assistant; Emergency Provider Emergency Medicine; PCP Family Medicine
DX: F11.13 Opioid abuse with withdrawal (principal); R45.851 Suicidal ideations
CPT/HCPCS: 00123; 36415; 80053; 80307; 81025; 83690; 87426; 96127; 99283; 80329; 81003; 81015; 83735; 85025

== ENCOUNTER 2024-06-19 21:02 | Outpatient (REF) | payer MEDICAID, SELFPAY | END 2024-06-19 21:03 | disposition home or self-care (01) | LOC: LBN 21:02 | PROVIDERS: PCP Family Medicine; Visit Provider Physician Assistant Medical | DX: L97.529 Non-pressure chronic ulcer of other part of left foot with unspecified severity (principal) | CPT/HCPCS: 87077; 87070; 87205 ==

== ENCOUNTER 2024-06-21 09:35 | Emergency (ER) | payer MEDICAID, SELFPAY ==
[2024-06-21 09:41] VITALS: BP 104/63; PULSE 87; RESP 18; TEMP 36.7; O2SAT 97
[2024-06-21 09:46] VITALS: PULSE 90; RESP 16; TEMP 36.7; O2SAT 95
--- NOTE | 2024-06-21 09:55 | ED.GENADUL_ITS ---
Discharge Plan Disposition Patient Disposition: Home Condition: Stable Discharge Details Clinical Impression: Wound of left foot Primary Care Provider: Sophia Edwards V ED Provider: Vitaliy Worrell Home Meds and New Rx's Prescriptions: New doxycycline hyclate 100 mg tablet 100 mg PO BID Qty: 14 0RF amoxicillin-pot clavulanate 875-125 mg tablet 1 tab PO BID Qty: 14 0RF Continued levonorgestrel-ethinyl estrad [Introvale] 1 EACH tablets,dose pack,3 month 1 ea PO DAILY clonidine HCl 0.1 MG tablet extended release 12 hr 0.1 mg PO .q8 hr PRN gabapentin 600 mg tablet 600 mg PO BID Discontinued sulfamethoxazole-trimethoprim [Bactrim DS] 800-160 mg tablet 1 tab PO Q12H Patient Comments: 4 doses total Discharge Instructions Additional Instructions: Follow-up with your primary care provider and personal injury law specialist Return to the emergency department if you develop high fevers or feel significantly more ill. Try to keep the wound covered specially when wearing socks and shoes. HPI General Mode of arrival: ambulatory . Date/Time Provider Initiated Documentation: 06/21/24 09:36 . Limitations to Documentation: no limitations . Information obtained by: patient . History of Present Illness 44 year old F presents to the emergency department with the chief complaint of wound left foot, described as moderate, Patient started experiencing this month(s) (2) and it has been constant. No relieving factors improve symptom(s), No exacerbating factors reported . Patient notes no other symptoms.. Patient did receive the following treatments prior to arrival, none Related Data Home Medications ?Medication ?Instructions ?Recorded ?Confirmed clonidine HCl 0.1 mg 0.1 mg PO .q8 hr PRN 04/07/16 06/21/24 tablet,extended release,12 hr levonorgestrel 0.15 mg-ethinyl 1 ea PO DAILY 04/07/16 06/21/24 estradiol 30 mcg tablets,3 mos pack(91) (Introvale) gabapentin 600 mg tablet 600 mg PO BID 12/25/23 06/21/24 amoxicillin 875 mg-potassium 1 tab PO BID #14 tabs 06/21/24 clavulanate 125 mg tablet doxycycline hyclate 100 mg tablet 100 mg PO BID #14 tabs 06/21/24 Previous Rx's ?Medication ?Instructions ?Recorded amoxicillin 875 mg-potassium 1 tab PO BID #14 tabs 06/21/24 clavulanate 125 mg tablet doxycycline hyclate 100 mg tablet 100 mg PO BID #14 tabs 06/21/24 Allergies Allergy/AdvReac Type Severity Reaction Status Date / Time diphenhydramine HCl (From Allergy Severe Anaphylaxsi Unverified 06/21/24 09:39 Benadryl) s duloxetine HCl (From Allergy Intermediate hallucination, Verified 06/21/24 09:39 Cymbalta) fever, stomach pain, sweating,vomitting eszopiclone (From Lunesta) AdvReac Unknown airway Verified 06/21/24 09:39 morphine sulfate (From MS AdvReac Unknown Agitation Verified 06/21/24 09:39 Contin) trazodone AdvReac Unknown Agitation Verified 06/21/24 09:39 zolpidem tartrate (From AdvReac Unknown Dizziness/L Verified 06/21/24 09:39 Ambien) ighthead General Stated Complaint: Cellulitis SAMANTHA: 3 Review of Systems All systems reviewed & are unremarkable except as noted in HPI and below Constitutional Constitutional: Denies chills, Denies fever(s) and Denies weakness Cardiovascular Cardiovascular: Denies chest pain and Denies dyspnea Respiratory Respiratory: Denies cough and Denies dyspnea Gastrointestinal Gastrointestinal: Denies abdominal pain, Denies nausea and Denies vomiting Integumentary/Breasts Skin/Breast: Reports wounds Neurologic Neurologic: Denies weakness Exam Const General: no acute distress Orientation: alert HENSD Head: normal to inspection Ears: external ears normal General nose exam: external nose normal Mouth: moist mucous membranes Eyes General: appearance normal, both eyes and all related structures Neck Neck: normal visual inspection Resp Effort & Inspection: normal respiratory effort and able to speak in complete sentences Cardio Rate: regular rate Skin General skin exam: no mottling and no petechiae Neuro General: patient alert and patient oriented x3 Extrem General: full ROM and capillary refill normal Psych Mental Status: mental status grossly normal Course Vital Signs Vital signs: Vital Signs Temperature 36.7 C 06/21/24 09:41 Pulse 87 06/21/24 09:41 Respiratory Rate 18 06/21/24 09:41 Blood Pressure 104/63 06/21/24 09:41 Pulse Oximetry 97 06/21/24 09:41 Temperature 36.7 C 06/21/24 09:46 Temperature Source Oral 06/21/24 09:46 Pulse 90 06/21/24 09:46 Respiratory Rate 16 06/21/24 09:46 Respiratory Effort Normal, Non-Labored 06/21/24 09:45 Blood Pressure 104/63 06/21/24 09:41 Blood Pressure Position Sitting 06/21/24 09:41 Pulse Oximetry 95 06/21/24 09:46 Oxygen Delivery Method Room Air 06/21/24 09:46 Oxygen Flow Rate 0 06/21/24 09:41 Pain Level 10 06/21/24 09:46 Comment no meds, unable to ask if using other drugs as father at side 06/21/24 09:46 Medical Decision Making 44-year-old female with history of substance abuse comes in with a wound on her left inner foot for approximately 2 months. She denies any known trauma, no fevers or chills. She was seen in urgent care this week and put on Bactrim and she done this for 2 days. She came here for reevaluation that she thinks is getting worse. She has a 1 cm superficial ulcerated lesion on the inner foot. There is no bony exposure or tunneling. There is 1 mm of surrounding erythema that is not warm or otherwise no significant swelling of the leg. Suspect this is a chronic wound appears to be some type of pressure ulcer. No concern for osteo or infectious etiology, patient declines to have any blood work done and has decision-making capacity. She is willing to have an x-ray done which I ordered to evaluate for possible evidence of osteomyelitis. X-ray negative on my read, patient stable. She says that the Bactrim she was put on is causing her to have side effects and does not want to continue this. Will place her on Augmentin and doxycycline. She is stable for discharge and advised to follow-up with her PCP and personal injury law specialist that she has been referred to. Return precautions given Differential Diagnosis Differential Diagnosis: Chronic wound, skin breakdown Quality:SDOH Health Related Social Needs: No Data to Display PFSH All Active Problems (Updated 06/21/24 @ 10:42 by Vitaliy Worrell MD) Wound of left foot (Acute) Spondylosis without myelopathy or radiculopathy, lumbar region (Chronic) Medical History (Updated 06/21/24 @ 10:42 by Vitaliy Worrell MD) IBS (irritable bowel syndrome) Vaginal irritation Wart Mold exposure Hx of substance abuse HSV infection Recurrent respiratory infection Weight loss Vertigo Cyclical vomiting Congenital finger anomaly Skin lesion Peripheral neuropathy History of pneumonia Chronic fatigue syndrome Attention deficit disorder (ADD) without hyperactivity Depression Back pain Anxiety Pernicious anemia Anemia Mood disorder Sleep disturbance Muscle spasm Scoliosis Low back pain Post traumatic stress disorder Psychogenic dyspareunia Onychomycosis of toenail Social History Smoking/Tobacco Use Status: Current every day Tobacco Type: cigarettes Smoking packs per day: 1 Smoking cigarettes per day: 20.0 Years smoked: 20 Smoking pack- years: 20.00 Tobacco: How many years used: 20 Smoking risk assessment performed?: Yes Alcohol Intake: never Drug use: Daily Substance use type: opiates and IV drugs Housing: house Do you feel safe at home: No Do you feel safe in your relationship?: Yes
--- NOTE | 2024-06-21 10:19 | DI.RAD_ITS ---
Exam(s) XR FOOT LT COMPLETE EXAM: XR FOOT LT COMPLETE CLINICAL HISTORY: wound inner foot. TECHNIQUE: 2D digital imaging was performed. Three views. COMPARISON: No exams were available for comparison FINDINGS: BONES: No acute fracture is present. No bony destructive lesion is seen. Ossicle digit adjacent to the navicular and cuboid. Small plantar calcaneal spur. JOINTS: No dislocation present. SOFT TISSUE: Medial swelling near the navicular. Small soft tissue defect. No foreign body. IMPRESSION: Medial soft tissue wound. No foreign body. No evidence of fracture DATA REPOSITORY: RADIATION DOSE DELIVERED:
[2024-06-21 10:48] VITALS: PULSE 78; RESP 16; TEMP 36.4; O2SAT 96
--- NOTE | 2024-06-21 11:06 | DI.VRAD_ITS ---
PROCEDURE INFORMATION: Exam: XR Left Foot Exam date and time: 06/21/2024 10:13 AM Age: 44 years old Clinical indication: Pain; Left; Patient HX: Wound inner foot TECHNIQUE: Imaging protocol: Radiologic exam of the left foot. Views: 3 or more views. COMPARISON: No relevant prior studies available. FINDINGS: Bones/joints: No fracture, dislocation or arthropathic change. Soft tissues: No air seen within the soft tissues. IMPRESSION: No acute findings. Dictated and Authenticated by: Hola Torres MD. Ordering:TRI Burks MD
== END 2024-06-21 10:50 | disposition home or self-care (01) ==
PROVIDERS: Emergency Provider Emergency Medicine; PCP Family Medicine
DX: L97.521 Non-pressure chronic ulcer of other part of left foot limited to breakdown of skin (principal); F17.210 Nicotine dependence, cigarettes, uncomplicated
CPT/HCPCS: 99283; 73630

== ENCOUNTER 2024-08-01 16:03 | Outpatient (REF) | payer MEDICAID, SELFPAY ==
--- OUTSIDE RECORDS SUMMARY | 2024-08-01 16:09 | XMS_ITS | Data Portability ---
Author Organization [place] - [facility] [place] [address] Assessment Encounter Date Assessment Date Assessment LastModified by Organization Details LastModified Time 01/31/2024 01/31/2024 This appointment was conducted via telephone. A total of 15 minutes was spent at this visit of which at least 50% was spent in direct patient contact. Consent was given to conduct this encounter using appropriate technology. sberrian Not available 02/07/2024 18:32:30 03/28/2024 03/28/2024 This appointment was conducted via telephone. A total of 20 minutes was spent at this visit of which at least 50% was spent in direct patient contact. Consent was given to conduct this encounter using appropriate technology. sberrian Not available 03/29/2024 14:01:32 Plan of Treatment Reminders Order Date Submit Date Provider Last Modified By Organization Details Last Modified Time Details Appointments Office Visit 30 2023 01:00P M EDWIN EDWARDS Not available Not available Not available Nurse Visit 20 2023 02:00P M T[facility] Nursing Staff Not available Not available Not available Follow Up 2023 11:10A M EDWIN EDWARDS Not available Not available Not available Lab culture, wound - Left ankle 2023 024 [facility] (Registration ), [address] , [place], [address], 06/20/2024 08:34:32 Referral wound care referral - Please have Erica Ley evaluate 2023 024 [facility], [address] , [address], [place], [address], 07/22/2024 14:43:06 Procedures None recorded. Surgeries None recorded. Imaging None recorded. Medication Orders gabapenti n 600 mg tablet 2023 024 [facility], [address] [place] [address], [address], 02/07/2024 18:31:38 clonidine HCl 0.1 mg tablet 2023 024 [facility], [address] [place] [address], [address], 02/07/2024 18:31:37 Miralax 17 gram/dose oral powder 2023 024 [facility], [address] [place] [address], [address], 02/29/2024 12:33:38 ibuprofen 800 mg tablet 2023 024 [facility], [address] [place] [address], [address], 02/29/2024 12:33:38 pantopraz ole 40 mg tablet,de layed release 2023 024 [facility], [address] [place] [address], [address], 02/29/2024 12:33:38 Wellbutri n XL 150 mg 24 hr tablet, extended release 2023 024 [facility], [address] [place] [address], [address], 03/28/2024 14:41:49 Wellbutri n XL 300 mg 24 hr tablet, extended release 2023 024 [facility], [address] [place] [address], [address], 06/19/2024 15:18:35 buspirone 15 mg tablet 2023 024 [facility], [address] [place], [address], 06/19/2024 15:18:12 Setlakin 0.15 mg-30 mcg (91) tablets,3 month dose pack 2023 024 [facility], [address] [place], [address], 02/29/2024 12:33:38 pantopraz ole 40 mg tablet,de layed release 2023 024 [facility], [address] [place] [address], [address], 03/28/2024 15:13:05 Bactrim DS 800 mg-160 mg tablet 2023 024 [facility], [address] [place] [address], [address], 08/01/2024 13:01:01 Patient TargetsNo targets recorded. Patient Instructions Encounter Date Encounter Id Patient Instructions Last Modified By Organization Details Last Modified Time 06/19/2024 [id number] 1. I have sent prescription for an antibiotic you will take twice a day for the next 7 days. 2. Wound culture obtained for testing will have results in 2 days. I suspect we will get these back after we are closed on Sunday that she will likely not hear from us on Sunday to go over results because we are closed on Sunday. 3. I will also send referral to wound care to help you better manage these wounds. I expect they will reach out to you likely on Sunday as well. [email or web address] Not available 06/19/2024 16:32:10 Reason for Referral Please have Erica cuello valuate Referring Physician: Francine Mayen, Family Medicine, Encounter Date: 06/19/2024 Results Created Date Observation Date Name Description Value Unit Range Abnormal Flag Note LastModifiedBy Organization Detail LastModifiedTime 06/19/20 24 06/19/2024 GRAM STAIN gram stain Gram Stain GRAM STAIN (REPO RT) Rare White Blood Cells Moder ate Gram Posit reyna Cocci Many Gram Negat reyna Sundar Few Gram Posit reyna Sundar Not Available [facility] (Registration ) [address] [place] [address] [place], [address], 06/19/2024 22:22:15 06/19/20 24 06/22/2024 WOUND AEROB IC CULTU RE wound aerobic culture Wound Aerob ic Cultu re ACTIO N IDENT IFICA TION TO FOLLO W APPEA GABRIELE Gram Posit reyna [place] APPEA GABRIELE Julieta l [place] APPEA GABRIELE Gram Posit reyna [place] APPEA GABRIELE Julieta l [place] APPEA GABRIELE Gram Posit reyna [place] APPEA GABRIELE Julieta l [place] GROWT H(REP ORT) HEAVY GROWT H GROWT H(REP ORT) SCANT GROWT H GROWT H(REP ORT) HEAVY GROWT H GROWT H(REP ORT) MODER ATE GROWT H GROWT H(REP ORT) HEAVY GROWT H GROWT H(REP ORT) MODER ATE GROWT H Day 1 Resul t ISOLA MANNIE BELOW Day 2 Resul t ISOLA MANNIE BELOW Day 3 Resul t ISOLA MANNIE BELOW O:STR GRC (ORGA NISM ID: 1.1) - GROUP C STREP TOCOC CUS Wound Aerob ic Cultu re (ORGA NISM ID: 1.1) - GROWT H(REP ORT) (ORGA NISM ID: 1.1) - HEAVY GROWT H O:NF (ORGA NISM ID: 1.2) - JULIETA L [place] Wound Aerob ic Cultu re (ORGA NISM ID: 1.2) - GROWT H(REP ORT) (ORGA NISM ID: 1.2) - MODER ATE GROWT H Not Available [facility] (Registration ) [address] [place] [address] [place], [address], 06/22/2024 08:56:38 06/19/20 24 06/19/2024 GRAM STAIN gram stain Gram Stain GRAM STAIN (REPO RT) Rare White Blood Cells Moder ate Gram Posit reyna Cocci Many Gram Negat reyna Sundar Few Gram Posit reyna Sundar Not Available [facility] [address] [place], [address] 06/20/2024 13:41:43 08/01/20 24 08/01/2024 drug scree n, urine Amphetamines : negati ve Not Available [address], [address], 08/01/2024 14:06:40 08/01/20 24 08/01/2024 drug scree n, urine Barbiturates : negati ve Not Available [facility] [address] [place], [address], 08/01/2024 14:06:40 08/01/20 24 08/01/2024 drug scree n, urine BUP: negati ve Not Available [address], [address], 08/01/2024 14:06:40 08/01/20 24 08/01/2024 drug scree n, urine Benzodiazepi ramon: negati ve Not Available [address], [address], 08/01/2024 14:06:40 08/01/20 24 08/01/2024 drug scree n, urine Cocaine: positi ve Not Available [address], [address], 08/01/2024 14:06:40 08/01/20 24 08/01/2024 drug scree n, urine EDDP (Methadone Metabolite) negati ve Not Available [address], [address], 08/01/2024 14:06:40 08/01/20 24 08/01/2024 drug scree n, urine (MET) Methamphetam ine: negati ve Not Available [address], [address], 08/01/2024 14:06:40 08/01/20 24 08/01/2024 drug scree n, urine MDMA: negati ve Not Available [address], [address], 08/01/2024 14:06:40 08/01/20 24 08/01/2024 drug scree n, urine MTD (Methadone): negati ve Not Available [address], [address], 08/01/2024 14:06:40 08/01/2008/01/2024 drug scree n, urine Odk327 (Opiate): negati ve Not Available [address], [address], 08/01/2024 14:06:40 08/01/20 24 08/01/2024 drug scree n, urine OXY (Oxycodone): negati ve Not Available [address], [address], 08/01/2024 14:06:40 08/01/20 24 08/01/2024 drug scree n, urine TCA: negati ve Not Available [address], [address], 08/01/2024 14:06:40 08/01/20 24 08/01/2024 drug scree n, urine THC: negati ve Not Available [address], [address], 08/01/2024 14:06:40 06/02/20 24 10/31/2021 MAMMO , scree ese No observ ation record ed. Not Available 06/02 07:06:40 06/02/20 24 10/10/2021 MAMMnitesh Light No observ ation record ed. Not Available 06/02 07:06:41 06/02/20 24 04/20/2022 [place], niharika adrian No observ ation record ed. Not Available 06/02 07:06:42 06/02/20 24 04/20/2022 nitesh [place] No observ ation record ed. Not Available 06/02 07:06:46 06/02/20 24 07/31/2022 imagi ng/di agnos tic resul t No observ ation record ed. Not Available 06/02 07:06:47 06/02/2007/31/2022 imagi ng/di agnos tic resul t No observ ation record ed. Not Available 06/02 07:06:48 06/02/20 24 12/13/2021 imagi ng/di agnos tic resul t No observ ation record ed. Not Available 06/02 07:07:26 06/02/20 24 10/31/2021 [place], jesica banegas No observ ation record ed. Not Available 06/02 07:09:30 06/02/20 24 05/07/2023 imagi ng/di agnos tic resul t No observ ation record ed. Not Available 06/02 07:09:34 06/02/20 24 09/12/2022 imagi ng/di agnos tic resul t No observ ation record ed. Not Available 06/02 07:09:35 06/21/20 24 06/21/2024 angelique campbell Name: Toribio Parra Unit #: [id number] Loc: ER Orderi ng Provid er: Accoun t #: [id number] Status : REG ER Primar y Care Provid er: Marla Castillo M.D. Date of Exam : Sex: F : 1979 Age: 44 Exam(s ) PROCED URE INFORM ATION: Exam: XR Left Foot Exam date and time: 024 10:13 AM Age: 44 years old Clinic al indica tion: Pain; Left; Patien t HX: Wound inner foot TECHNI QUE: Imagin g protoc ol: Radiol ogic exam of the left foot. Views: 3 or more views. COMPAR BHARATHI: No releva nt prior studie s availa ble. FINDIN GS: Bones/ joints : No fractu re, disloc ation or arthro pathic change . Soft tissue s: No air seen within the soft tissue s. IMPRES AL: No acute findin gs. Dictat ed and Authen ticate d by: Jann Torres MD. Carlos ng:Reyes pan MD Access ion#=[id number] Ordercuate d By: CC: ------ ------ ------ ------ ------ ------ ------ ------ ------ ------ ------ ------ ---- Dictat ed By: Report s vrad [id number] Transc ribed By: Phuong Merge 1013 This is privil eged, confid ential inform ation intend ed only for the provid er named. Any use or distri bution by any person other than this provid er is strict ly prohib ited. If you receiv e this report in error, please notify us immedi ately at [phone] and return the origin al report to us at the addres s above. Thank- you. prerna [facility] [address] [place], [address] 06/23/2024 06:19:53 06/21/20 24 06/21/2024 x-ray imagi ng repor t Patien t Name: Toribio Parra Unit #: [id number] Loc: ER Carlos driscoll Provid er: Flora Worrell M.D. Accoun t #: [id number] Status : DEP ER Primar y Care [facility] er: Marla Castillo M.D. Date of Exam : Sex: F Admiss ion Date: : 1979 Age: 44 Exam(s ) XR FOOT LT COMPLE TE EXAM: XR FOOT LT COMPLE TE CLINIC AL HISTOR Y: wound inner foot. TECHNI QUE: 2D digita l imagin g was perfor med. Three views. COMPAR BHARATHI: No exams were availa ble for compar bharathi FINDIN GS: BONES: No acute fractu re is presen t. No bony destru ctive lesion is seen. Ossicl e digit adjace nt to the navicu lar and cuboid . Small planta r calcan eal spur. JOINTS : No disloc ation presen t. SOFT TISSUE : Medial swelli ng near the navicu lar. Small soft tissue defect . No foreig n body. IMPRES AL: Medial soft tissue wound. No foreig n body. No eviden ce of fractu re DATA REPOSI TORY: RADIAT ION DOSE DELIVE RED: Ordere d By: Flora Worrell M.D. CC: ------ ------ ------ ------ ------ ------ ------ ------ ------ ------ ------ ------ - Dictat ed By: Papito Rodriguez 1609 160 Transc ribed By: Hipolito Zhao 160 This is privil eged, confid ential inform ation intend ed only for the provid er named. Any use or distri bution by any person other than this provid er is strict ly prohib ited. If you receiv e this report in error, please notify us immedi ately at and return the origin al report to us at the addres s above. Thank- you. INTERFACE [address] [place], [address] 06/21/2024 16:13:35 Result Notes None recorded. Problems Name Problem SNOMED Code Status Onset Date Resolution Date Notes Provider Name and Address Organization Details Recorded Time Herpesvi kassandra infectio n [id number] Active 2003 Problem Code: B00.9; Problem Code Type: ICD-10; Not Available [facility] 3 04:21:51 Anxiety disorder 257522518 Active 200303/27/20 22 - Comments only - Edwin Edwards MD - she does find the clonidin e helpful for anxiety and would like to remain on that. Buspar added to adverse rx list. Problem Code: F41.9; Problem Code Type: ICD-10; Not Available [facility] 3 04:21:51 Major depressi on, single episode 19794140 Active 200108/21/20 21 - Comments only - Edwin Edwards MD - /PTSD/dy sthymia/ chronic fatigue. She is hesitant to try another medicati on. She states wellbutr in helped for 6 months at one point, but then triggere d increase d aggitati on. WIll await TFT results then discuss further. SHe is taking vitamin D Problem Code: F32.9; Problem Code Type: ICD-10; Not Available [facility] 3 04:21:51 Posttrau matic stress disorder 35946524 Active 200705/02/20 23 - Comments only - Edwin Edwards MD - /Mood disorder /situati onal depressi on. She had historic ally trialed SNRIs/SS RIs without particul ar benefit. She has found clonidin e benefici al for anxiety and is wonderin g if she can increase the dose. We will have her increase from 0.1 mg twice daily to 3 times daily. Problem Code: F43.10; Problem Code Type: ICD-10; Not Available [facility] 3 04:21:51 Attentio n deficit hyperact ivity disorder , predomin antly inattent reyna type 68106846 Active 201305/02/20 23 - Comments only - Edwin Edwards MD - For which she historic ally has found Vyvanse to be helpful both for focusing and to calm irritabi lity. See discussi on above with ongoing HANK. I will contact CONRADO for their input. 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 Problem Code: D51.0; Problem Code Type: ICD-10; Not Available [facility] 3 04:21:51 Irritabl e bowel syndrome 25227192 Active 201408/21/20 21 - Comments only - Edwin Edwards MD - /GERD -symptom s remainin g fairly stable - taking the pantapra zole regulari ly, librax she uses sparingl y. Problem Code: K58.9; Problem Code Type: ICD-10; Not Available [facility] 3 04:21:51 Scoliosi s of thoracic spine 561957357 Active 2015 Problem Code: M41.84; Problem Code Type: ICD-10; Not Available [facility] 3 04:21:52 Dizzines s and giddines s 315995660 Active 2015 Problem Code: R42; Problem Code Type: ICD-10; Not Available [facility] 3 04:21:52 Congenit al anomaly of limb 41003551 Active 2016 Problem Code: Q74.9; Problem Code Type: ICD-10; Not Available [facility] 3 04:21:52 Psycholo gic dyspareu luis alberto 06296357 Active 2016 Problem Code: F52.6; Problem Code Type: ICD-10; Not Available [facility] 3 04:21:52 Therapeu tic drug monitori ng assay 08568282 Active 2016 Problem Code: Z51.81; Problem Code Type: ICD-10; Not Available [facility] 3 04:21:52 Chronic fatigue syndrome 82881700 Active 201609/20/19 19 - Comments only - Live mao - At this point, I explaine d to her that the sweating and fatigue is because of her blood pressure medicati ons. I advised that she stay hydrated by drinking more water. Also, advised she carry a water bottle around with her. She understa nds this. Her blood pressure is little low compared to the last visit. I advised she try getting it back to normal and check her blood pressure at home or at a pharmacy . She is amenable . We will set her up for a CMP, CBC, and a TSH to determin e the etiology of her conditio n. For the acid reflux, I recommen ded that she could try Tums and see if it will give her relief. I also refilled all of her other meditati ons today. Problem Code: R53.82; Problem Code Type: ICD-10; Not Available [facility] 3 04:21:52 Mood disorder 06974760 Active 201711/01/19 21 - Comments only - Edwin Edwards MD - Karon was followin g with ELISSA but her provider left the practice . I will give her rfs on her seroquel and lamictal for now, but I do want her getting schedule d with psychiat ry again once availabl e. Problem Code: F39; Problem Code Type: ICD-10; Not Available [facility] 3 04:21:52 History of recurren t pneumoni a 033613698 Active 2017 Problem Code: Z87.01; Problem Code Type: ICD-10; Not Available [facility] 3 04:21:52 Gastroes ophageal reflux disease without esophagi tis 437383440 Active 201811/01/19 21 - Comments only - Edwin Edwards MD - due for a TSH - ordered. On levothyr oxine. Problem Code: K21.9; Problem Code Type: ICD-10; Not Available [facility] 3 04:21:53 Immunogl obulin level - finding 510099976 Active 201807/08/20 19 - Comments only - Koby jessica Beasley - Her last viral load for HIV was negative . She feels happy about that. Problem Code: R76.8; Problem Code Type: ICD-10; Not Available [facility] 3 04:21:53 Carpal tunnel syndrome 23336496 Active 201904/01/20 20 - Comments only - Edwin Edwards MD - she is getting definite improvem ent with the carpal tunnel spints - encourag e her to wear them at night also Problem Code: G56.00; Problem Code Type: ICD-10; Not Available [facility] 3 04:21:53 Adult health examinat ion Active 202006/11/20 22 - Comments only - Edwin Edwards MD - requesti ng a DM check - A1c 5.2, reassure d that she does not have DM Problem Code: Z00.00; Problem Code Type: ICD-10; Not Available [facility] 3 04:21:53 Hypothyr oidism 16369938 Active 202010/28/19 23 - Comments only - Edwin Edwards MD - Due for TFTs. She states she has been consiste ntly taking her levothyr oxine. Problem Code: E03.9; Problem Code Type: ICD-10; Not Available [facility] 3 04:21:53 Sleep apnea 86216384 Active 202112/24/19 22 - Comments only - Edwin Edwards MD - diagnose d recently with the sleep clinic - will be set up with CPAP once availabl e. Problem Code: G47.30; Problem Code Type: ICD-10; Not Available [facility] 3 04:21:53 Breast composit ion 228791573 Active 202106/11/20 22 - Comments only - Edwin Edwards MD - f/u u/s alyssa driscoll - stable cyst. Can resume annual screenin g Not Available [facility] 3 04:21:53 Non-scar ring alopecia 375008416 Active 202110/28/19 23 - Comments only - Edwin Edwards MD - , We will be checking her TFTs as below. We have also been getting reports of people with hair loss followin g COVID infectio n. This is a diffuse thinning , not alopecia areata. Problem Code: L65.9; Problem Code Type: ICD-10; Not Available [facility] 3 04:21:53 Congenit al anomaly of integume nt 56746103 Active 202105/02/20 23 - Comments only - Edwin Edwards MD - , Other areas that she states were related to injury do not currentl y appear infected . If there is any worsenin g she will let me know. Problem Code: Q84.9; Problem Code Type: ICD-10; Not Available [facility] 3 04:21:54 Solitary nodule of lung 782843321 Active 2021 Problem Code: R91.1; Problem Code Type: ICD-10; Not Available [facility] 3 04:21:54 Lyme disease 68048127 Active 2022 Problem Code: A69.20; Problem Code Type: ICD-10; Not Available [facility] 3 04:21:54 Dermatop hytosis 21464027 Active 2022 Problem Code: B35.9; Problem Code Type: ICD-10; Not Available [facility] 3 04:21:54 Family history of malignan t neoplasm 533328883 Active 202201/28/20 23 - Comments only - Edwin Edwarsd MD - , Mother and other family members have had melanoma . Skin check today was within normal limits, will also refer her to dermatjames [facility] to schedule for annual skin checks. Problem Code: Z80.8; Problem Code Type: ICD-10; Not Available [facility] 3 04:21:54 Knee joint effusion 847669327 Active 202202/12/20 23 - Comments only - Edwin Edwards MD - , Right. No current pain. This was related to direct impact of the kneecap with a fall. Given the fact that the swelling has subsided , there is no signific ant current evidence of prepatel lar large effusion , she is not having any pain I suggeste d we hold off on doing a joint drainage /steroid injectio n. She feels that is appropri ate and will let me know if there is any worsenin g again. She does not have any restrict ions to activity . Problem Code: M25.469; Problem Code Type: ICD-10; Not Available [facility] 3 04:21:55 Psychoac tive substanc e abuse 12000468 Active 2022 Problem Code: F19.10; Problem Code Type: ICD-10; Not Available [facility] 3 04:21:55 Psoriasi s 1571259 Active 2022 Problem Code: L40.9; Problem Code Type: ICD-10; Not Available [facility] 3 04:21:55 Lung field abnormal 489140229 Active 2022 Problem Code: R91.8; Problem Code Type: ICD-10; Not Available [facility] 3 04:21:55 Low back pain 325597790 Completed 200506/09/2022 Problem Code: M54.5; Problem Code Type: ICD-10; Not Available [facility] 3 04:21:55 Sleep disorder 19322195 Completed 201503/23/2022 Problem Code: G47.9; Problem Code Type: ICD-10; Not Available [facility] 3 04:21:55 Pain in left lower limb 809235245 Completed 201903/23/2022 Problem Code: M79.605; Problem Code Type: ICD-10; Not Available [facility] 3 04:21:56 Abdomina l pain 39726032 Completed 201803/23/2022 Problem Code: R10.9; Problem Code Type: ICD-10; Not Available [facility] 3 04:21:56 Venereal disease screenin g Completed 201806/09/2022 Problem Code: Z11.3; Problem Code Type: ICD-10; Not Available [facility] 3 04:21:56 Abnormal weight loss 215859778 Completed 200403/23/2022 Problem Code: R63.4; Problem Code Type: ICD-10; Not Available [facility] 3 04:21:56 Spasm 78494083 Completed 201503/23/2022 Problem Code: M62.838; Problem Code Type: ICD-10; Not Available [facility] 3 04:21:56 Cyclical vomiting syndrome 10058465 Completed 201606/09/2022 Problem Code: G43.A0; Problem Code Type: ICD-10; Not Available [facility] 3 04:21:57 Depressi ve disorder 52860173 Completed 200106/13/2023 10/28/19 23 - Comments only - Edwin Edwards MD - /Mood disorder . She has been in a signific antly depressi ve mood the last few months. PHQ-9 of 16. Not suicidal . She states historic ally she has tried a few antidepr essants but they have not been of benefit. She was also trialed on Geodon at 1 point which did not particul cristal help. See allergy list. She has also been trialed on amitript yline and Lamictal . She does have a history of PTSD. Unclear whether current symptoms just due to depressi on versus a depressi ve flare with backgrou nd of bipolar versus solitary PTSD. I would prefer to have her meet with a psychiat jocelin provider to ease out the diagnosi sNatanael Mccormack is amenable . She does have [facility]i ng [facility] although has not had consiste ntly the same counselo r there for a while. She ultimate ly might benefit from a consiste nt counselo r through [facility]. Not Available [facility] 3 04:21:57 Adjustme nt disorder 92740158 Completed 201903/23/2022 Problem Code: F43.20; Problem Code Type: ICD-10; Not Available [facility] 3 04:21:57 Disorder of skin and/or subcutan eous tissue 63236532 Active 201507/05/20 23 - Comments only - Aliyah Meade -[facility] - -Clean the area with soap and water, traced the area of erythema with a sharpie, and applied bacitrac in ointment and a bandage. Reviewed signs and symptoms warranti ng a call to the office. She does feel that the erythema tous area is smaller today than it was yesterda y, and the site is draining serosang uineous fluid only. Problem Code: L98.9; Problem Code Type: ICD-10; Not Available [facility] 4 05:37:46 Child attentio n deficit disorder 423649763 Completed 201306/13/2023 Problem Code: 314.00; Problem Code Type: ICD-9; Not Available [facility] 3 04:21:57 Pernicio us anemia 31526116 Completed 201206/13/2023 Problem Code: 281.0; Problem Code Type: ICD-9; Not Available [facility] 3 04:21:58 Herpesvi ral vesicula r dermatit is 907655315 Completed 200306/13/2023 Not Available [facility] 3 04:21:58 Pain in thoracic spine 041977035 Completed 201503/23/2022 Problem Code: M54.9; Problem Code Type: ICD-10; Not Available [facility] 3 04:21:58 Exposure to potentia lly harmful entity Completed 201403/23/2022 Problem Code: Z77.120; Problem Code Type: ICD-10; Not Available [facility] 3 04:21:58 Weight loss 26106199 Completed 200406/13/2023 Not Available [facility] 3 04:21:58 Peripher al nerve disease 875699670 Completed 201306/13/2023 Not Available [facility] 3 04:21:59 Verruca vulgaris 53314263 Completed 201403/23/2022 Problem Code: B07.9; Problem Code Type: ICD-10; Not Available [facility] 3 04:21:59 Disorder of respirat ory system 22733046 Completed 201606/09/2022 Problem Code: J98.8; Problem Code Type: ICD-10; Not Available [facility] 3 04:21:59 Periapic al abscess 335509441 Completed 201903/23/2022 Problem Code: K04.7; Problem Code Type: ICD-10; Not Available [facility] 3 04:21:59 Fatigue 95238452 Completed 201506/09/2022 Problem Code: R53.83; Problem Code Type: ICD-10; Not Available [facility] 3 04:22:00 Insect bite Completed 202003/23/2022 Not Available [facility] 3 04:22:00 Elevated blood-pr essure reading without diagnosi s of hyperten al 100674244 Completed 202006/11/2022 Problem Code: R03.0; Problem Code Type: ICD-10; Not Available [facility] 3 04:22:00 Cellulit is 753289580 Completed 201803/23/2022 Problem Code: L03.90; Problem Code Type: ICD-10; Not Available [facility] 3 04:22:00 Generali zed hyperhid rosis 945071589 Completed 201803/23/2022 Problem Code: R61; Problem Code Type: ICD-10; Not Available [facility] 3 04:22:01 Skin finding 468134827 Completed 201906/09/2022 Problem Code: R23.8; Problem Code Type: ICD-10; Not Available [facility] 3 04:22:01 Onychomy cosis due to dermatop hyte 699473312 Completed 201403/23/2022 Problem Code: B35.1; Problem Code Type: ICD-10; Not Available [facility] 3 04:22:01 Abnormal weight gain 213602475 Completed 201703/23/2022 Problem Code: R63.5; Problem Code Type: ICD-10; Not Available [facility] 3 04:22:02 Noninfla mmatory disorder of the vagina 62277656 Completed 201606/09/2022 Problem Code: N89.8; Problem Code Type: ICD-10; Not Available [facility] 3 04:22:02 History of SARS-CoV -2 [id number] 0037312 Active 202207/05/20 23 - Comments only - Aliyah HernándezJavy [facility]- - - She is now 2 weeks post positive COVID test, continui ng to feel fatigued , short of breath, with stomacha raghu and altered sense of taste and smell. -She is slightly hypotens reyna (102/52, repeat 92/62), otherwis e her vital signs are stable, afebrile , O2 sat = 96%. - Explaine d that recovery from COVID typicall y takes approxim ately 2 weeks, but can vary signific antly, with symptoms persisti ng for 1 to 3 months. Encourag ed her to focus on proper nutritio n and hydratio n and regulati ng her bowels. See constipa tion -She is schedule d to follow-u p with her PCP on 3, and understa nds that she may also be asked to return to the office next week for UDS and pill count. I did encourag e her to call with any worsenin g symptoms , question s or concerns , and we reviewed the availabi lity of the provider on-call after hours and on weekends . Problem Code: Z86.16; Problem Code Type: ICD-10; Not Available [facility] 4 05:37:47 Constipa tion 11237296 Active 202207/05/20 23 - Comments only - Aliyah Negronmariiajaciel Lj [facility]- - - Recommen ded she start MiraLAX 1 cap daily and increase her fluids, with a goal of at least 1 formed BM daily. -She may need to add a fiber suppleme nt as well. Problem Code: K59.00; Problem Code Type: ICD-10; Not Available [facility] 4 05:37:47 Ulcer of foot 72426520 Active [address], [place], [address] , [facility]. 4 16:30:02 Notes:*Problem Name: H/o Hiral rosalia And Heroine Use *ICD-10 Codes: *Problem Status: inactive *Comments: *Note Date: 06/09/2008 Problem Notes None recorded. Procedures Surgical History None recorded. Imaging Results Imaging Date Name Status LastModified by Organiz aton [facility] Details LastModified Time 10/31/2021 MAMMO, screening completed Information not available 06/02/2024 07:06:40 10/10/2021 MAMMO, screening completed Information not available 06/02/2024 07:06:41 04/20/2022 US, breast completed Information no t available 06/02/2024 07:06:42 04/20/2022 MAMMO, screening completed Information not available 06/02/2024 07:06:46 07/31/2022 imaging/diagno stic result completed Information not available 06/02/2024 07:06:47 07/31/2022 imaging/diagno stic result completed Information not available 06/02/2024 07:06:48 12/13/2021 imaging/diagno stic result completed Information not available 06/02/2024 07:07:26 10/31/2021 US, breast, bilateral completed Information not available 06/02/2024 07:09:30 05/07/2023 imaging/diagno stic result completed Information not available 06/02/2024 07:09:34 09/12/2022 imaging/diagno stic result completed Information not available 06/02/2024 07:09:35 06/21/2024 vrad report completed sberrian [address] [place], [address] 06/23/2024 06:19:53 06/21/2024 x-ray imaging report completed INTERFACE [address] [place], [address] 06/21/2024 16:13:35 Procedure Notes None recorded. Medical Equipment None Reported. Allergies Allergen ID Allergen Name Allergen Category Reaction Reaction Severity Criticality Documentation Date Start Date Code Code System Note Provider Name and Address Organization Details Recorded Time 09021 Lunesta medicatio n Not available Not available Not available 06/19/2024 60349 4 RxNorm JANEL Brewer, [facility] 4 15:16:40 55364 Geodon medicatio n Not available Not available Not available 06/19/2024 87189 4 RxNorm JANEL Brewer, [facility] 4 15:16:50 00021 Benadryl medicatio n Not available Not available Not available 06/19/2024 34736 7 RxNorm JANEL Brewer, [facility] 15:16:59 47031 trazodone medicatio n Not available Not available Not available 06/19/2024 37970 RxNoJANEL Grigsby, [facility] 4 15:17:09 67019 Cymbalta medicatio n Not available Not available Not available 06/19/2024 87443 4 RxNorm JANEL Brewer, [facility] 15:17:18 40445 Ambien medicatio n Not available Not available Not available 06/19/2024 34655 5 RxNorm JANEL Brewer, [facility] 4 15:17:33 83672 buspirone medicatio n Not available Not available Not available 06/19/2024 1827 JANEL Perez, [facility] 4 15:17:45 Medications Name Sig Start Date Stop Date Status Note LastModified by Organization Details LastModified Time venlafaxi ne ER 37.5 mg capsule,e xtended release 24 hr Take 1 by mouth daily for 1 week then increase to 75mg tablet 10/04 completed Not Available Not Available Not Available clonidine HCl 0.1 mg tablet TAKE ONE TABLET BY MOUTH TWICE A DAY active Not Available Not Available No t Available venlafaxi ne ER 75 mg capsule,e xtended release 24 hr Take 1 by mouth daily 10/04 completed Not Available Not Available Not Available gabapenti n 600 mg tablet Take 1 tablet twice a day by oral route. 2023 active Not Available Not Available Not Avai lable doxycycli ne hyclate 100 mg capsule Take 1 capsule by mouth twice a day 01/20 completed Not Available Not Available Not Available methadone 10 mg/5 mL oral solution 141 mg once a day 01/07 completed BAART Not Available Not Available Not Available ibuprofen 800 mg tablet TAKE ONE TABLET BY MOUTH TWICE A DAY NEEDED active Not Available Not Available No t Available Keflex 500 mg capsule Take 1 tab by mouth three times daily 07/07 completed Not Available Not Available Not Available Librax (with clidinium ) 5 mg-2.5 mg capsule Take 1 by mouth daily 2013 active Not Available Not Available Not Avai lable Seroquel 25 mg tablet Take 1 tab by mouth daily at bedtime 01/16 completed Not Available Not Available Not Available Geodon 20 mg capsule 1 tablet at hs for 1 week, then if tolerati ng, can increase to 2 at hs 05/31 completed Not Available Not Available Not Available Mirapex 0.125 mg tablet Take 1 tablet by mouth every night 2021 active Not Available Not Available Not Avai lable penicilli n V potassium 500 mg tablet 1 tab twice daily 09/10 completed Not Available Not Available Not Available sulfameth oxazole 800 mg-trimet hoprim 160 mg tablet TAKE 1 TABLET BY MOUTH EVERY 12 HOURS FOR 7 DAYS 08/01 completed Not Available Not Available Not Available triamcino lone acetonide 0.1 % topical cream APPLY A SMALL AMOUNT TO THE AFFECTED AREA TWICE DAILY 01/07 completed Not Available Not Available Not Available pantopraz ole 20 mg tablet,de layed release TAKE ONE TABLET BY MOUTH EVERY DAY 08/11 completed Not Available Not Available Not Available levothyro xine 75 mcg tablet TAKE ONE TABLET BY MOUTH EVERY DAY active Not Available Not Available No t Available Zofran 4 mg tablet Take 1 03/01 completed Not Available Not Available Not Available propranol ol 10 mg tablet 1 tablet by mouth twice a day for anxiety 2023 active Not Available Not Available Not Avai lable amitripty line 25 mg tablet 1 tab at bedtime 12/29 completed Prescrib ed by Guerline gutierrez Not Available Not Available Not Available Lamisil 250 mg tablet 1 po daily 2014 active Not Available Not Available Not Avai lable Valium 5 mg tablet 1 tab daily PRN 03/08 completed Not Available Not Available Not Available Lamictal 25 mg tablet Take 1 tab by mouth daily 10/29 completed Prescrib ed by Guerline gutierrez Not Available Not Available Not Available pantopraz ole 40 mg tablet,de layed release Take 1 tablet by mouth once a day 2023 active Not Available Not Available Not Avai lable cyanocoba warner (vit B-12) 1,000 mcg/mL injection solution Inject 1000 mcg intramus cularly every 3 weeks 2023 active Not Available Not Available Not Avai lable L-Tyrosin e 500 mg tablet 2 cap daily 2014 active Not Available Not Available Not Avai lable Robaxin-7 50 750 mg tablet Take 1 tablet by mouth every night as needed 05/01 completed Not Available Not Available Not Available syringe (disposab le) 3 mL USE 1 SYRNINGE WITH VITAMIN B12 INJECTIO NS EVERY 3 WEEKS DIRECTED active Not Available Not Available No t Available BD Luer-Sherie Syringe 3 mL 25 gauge x 1 USE 1 SYRNINGE WITH VITAMIN B12 INJECTIO NS EVERY 3 WEEKS DIRECTED active Not Available Not Available No t Available Synthroid 50 mcg tablet Take 1 tab by mouth daily 02/11 completed Not Available Not Available Not Available gabapenti n 300 mg capsule Take 1 capsule every day by oral route, for as a third dose, in addition to the 600mg bid. 2023 active Not Available Not Available Not Avai lable omeprazol e 20 mg capsule,d elayed release 1 capsule by mouth bid for 4 days then can decrease to qd 03/30 completed Not Available Not Available Not Available hydroxyzi ne HCl 25 mg tablet TAKE ONE TABLET BY MOUTH UP TO THREE TIMES DAILY FOR ANXIETY NEEDED 02/28 completed Not Available Not Available Not Available mupirocin 2 % topical ointment APPLY A SMALL AMOUNT TO AFFECTED AREA TWO TIMES A DAY active Not Available Not Available No t Available Seroquel 100 mg tablet Take 1.5 tablet by mouth every night 08/16 completed Prescrib ed by Guerline gutierrez Not Available Not Available Not Available L-Lysine 500 mg capsule Take 1 by mouth daily 2013 active Not Available Not Available Not Avai lable Depakote 125 mg tablet,de layed release 1 at hs for 3d then 1 bid for 3d then 1 in the AM and 2 at HS 11/27 completed Not Available Not Available Not Available polyethyl jihan glycol 3350 17 gram/dose oral powder MIX 1 TABLESPO ONFUL IN LIQUID AND DRINK BY MOUTH ONCE DAILY active Not Available Not Available No t Available Zoloft 100 mg tablet 1 TAB twice daily 01/26 completed Not Available Not Available Not Available clotrimaz ole 1 % topical cream Apply 1 a small amount to affected area twice a day Applied twice a day until resolved and then for 1 week after. 02/07 completed Not Available Not Available Not Available doxycycli ne hyclate 100 mg tablet TAKE 1 TABLET BY MOUTH TWO TIMES A DAY active Not Available Not Available No t Available Ambien 10 mg tablet 1 PRN QHS 10/29 completed Not Available Not Available Not Available amoxicill in 875 mg-potass ium clavulana te 125 mg tablet TAKE 1 TABLET BY MOUTH TWO TIMES A DAY 08/01 completed Not Available Not Available Not Available Flexeril 10 mg tablet 1 TAB TID 04/24 completed Not Available Not Available Not Available buspirone 15 mg tablet TAKE 1/2 TABLET BY MOUTH TWICE DAILY FOR 1 TO 2 DAYS THEN CAN INCREASE TO 1 TABLET TWICE DAILY FOR ANXIETY NEEDED 06/19 completed Not Available Not Available Not Available bupropion HCl XL 300 mg 24 hr tablet, extended release TAKE ONE TABLET BY MOUTH EVERY DAY AFTER FINISHIN G THE 150MG DOSE FOR 1 WEEK 06/19 completed Not Available Not Available Not Available bupropion HCl XL 150 mg 24 hr tablet, extended release TAKE ONE TABLET BY MOUTH EVERY DAY FOR 1 WEEK THEN INCREASE TO THE 300MG DOSE 03/28 completed Not Available Not Available Not Available Cymbalta 30 mg capsule,d elayed release one qd 08/29 completed Not Available Not Available Not Available lysine 1TAB daily 2013 active Not Available Not Available Not Avai lable Librax (with clidinium ) 1 CAP qd 02/26 completed Not Available Not Available Not Available Miralax 1 tblsp daily 03/30 completed Not Available Not Available Not Available Adderall XR (30mg) 1CAP qd 05/01 completed Not Available Not Available Not Available cholecalc iferol (vitamin D3) 25 mcg (1,000 unit) tablet 2 tablet once a day 2023 active Not Available Not Available Not Avai lable Vyvanse 30 mg capsule 1 daily in PM 11/28 completed Not Available Not Available Not Available Vyvanse 50 mg capsule 1CAP daily 11/19 completed Not Available Not Available Not Available Vyvanse 70 mg capsule TAKE ONE CAPSULE BY MOUTH EVERY MORNING 06/19 completed Not Available Not Available Not Available Vyvanse 07/24 completed Not Available Not Available Not Available Vyvanse 60 mg capsule 1 tab by mouth daily 09/07 completed Not Available Not Available Not Available Vyvanse 20 mg capsule 1 qd PM. 08/01 completed Not Available Not Available Not Available Vyvanse 40 mg capsule TAKE ONE CAPSULE BY MOUTH EVERY MORNING AND 11AM 06/19 completed Not Available Not Available Not Available cholecalc iferol (vitamin D3) 50 mcg (2,000 unit) capsule TAKE ONE CAPSULE BY MOUTH EVERY DAY DURING COLDER WEATHER MONTHS 08/01 completed Not Available Not Available Not Available Vitamin D3 50 mcg (2,000 unit) tablet Take 1 tablet by mouth once a day use daily during the colder weather months 2021 active Not Available Not Available Not Avai lable lidocaine 5 % topical ointment APPLY A SMALL AMOUNT TO AFFECTED AREA FOUR TIMES A DAY 08/01 completed Not Available Not Available Not Available Vitamin B12 injectio n q 3weeks 03/30 completed Not Available Not Available Not Available Setlakin 0.15 mg-30 mcg (91) tablets,3 month dose pack TAKE ONE TABLET BY MOUTH EVERY DAY active Not Available Not Available No t Available cyanocoba warner (vitamin B-12) 1,000 mcg capsule INJ .monthly 02/24 completed Not Available Not Available Not Available Vitals Date Recorded Body height Body temperature Respiratory rate Oxygen saturation Oxygen saturation in Arterial blood by Pulse oximetry Heart rate Systolic blood pressure Diastolic blood pressure Provider Name and Address Organization Details Last Updated DateTime 4 170.18 cm 97.2 [degF] 18 /min 98 % 98 % 68 /min 103 mm[Hg] 66 mm[Hg] Hilda Chong MA [facility] 15:16:08 Date Recorded Body height Oxygen saturation Oxygen saturation in Arterial blood by Pulse oximetry Heart rate Body mass index (BMI) Body weight Systolic blood pressure Diastolic blood pressure Provider Name and Address Organization Details Last Updated DateTime 4 170.18 cm 98 % 98 % 68 /min 25.1 kg/m2 83865.5 g 128 mm[Hg] 66 mm[Hg] Ruben Rangel MA [facility] 4 13:04:22 Social History Question Answer Notes LastModified by Organizat ion Details LastModified Time Tobacco Smoking Status Current Every Day Smoker Hilda Chong MA [facility], [facility] 06/19/2024 15:22:03 What Was The Date Of Your Most Recent Tobacco Screening? 06/19/2024 [email or web address] Information not available 06/19/2024 At What Age Did You Start Smoking Tobacco? 17 [email or web address] Information not available 06/19/2024 How Much Tobacco Do You Smoke? 1 PPD 3/4 Pack Daily [email or web address] Information not available 08/01/2024 Has Tobacco Cessation Counseling Been Provided? Yes [email or web address] Information not available 06/19/2024 On What Date Was Tobacco Cessation Counseling Provided? 06/19/2024 [email or web address] Information not available 06/19/2024 How Many Years Have You Smoked Tobacco? 15 [email or web address] Information not available 06/19/2024 Do You Or Have You Ever Used Any Other Forms Of Tobacco Or Nicotine? No [email or web address] Information not available 06/19/2024 Sex: Female Functional Status None recorded. Mental Status None recorded. Family History Nothing Reported Notes:*Problem: Strong famil y hx of depression in the women on her mother s side. No suicide hx in the family. .end 06/09/08 .K: Family History- Strong family hx of depression in the women on her mother s side. No suicide hx in the family. .end 05/26/05 .K: Family History- Strong family hx of depression in the women on her mother s side. No suicide hx in the family. .end Mother: alive age healthy Father: alive age 65, 2 ?[place] , cataracts Mother: alive age 62, HEALTHY Sisters: none Brothers: healthy Family History of: Cardiovascular conditions: GM 50-60 from [place] Cancer: lung CA Other: HTN Medical History No medical history recorded. Gynecological HistoryNo gynecological history recorded. Obstetrics History GPAL:G 0 P 0 0 0 0 Immunizations Vaccine Type Date Status Provider Name and Address Organization Details Recorded Time Td (adult), 2 Lf tetanus toxoid, preservative free, adsorbed 03/30/2020 completed Not Available [facility] 07/27/2023 06:07:07 Tdap 02/24/2014 completed Not Available [facility] 06:07:07 Tdap 07/31/2022 completed Not Available [facility] 06:07:07 Td(adult) unspecified formulation 04/08/2003 completed Not Available [facility] 07/27/2023 06:07:07 influenza, unspecified formulation 10/04/2006 completed Not Available [facility] 07/27/2023 06:07:07 influenza, unspecified formulation 07/27/2003 completed Not Available [facility] 07/27/2023 06:07:07 Past Encounters Encounter ID Performer Location Encounter Start Date Encounter Closed Date Diagnosis/Indication Diagnosis SNOMED-CT Code Diagnosis ICD10 Code [id number] EDWIN EDWARDS MD [address] [address] 01/08/2024 13:07:52 01/08/2024 13:43:49 Anxiety disorder 346473658 F41.9 Attention deficit hyperactivity disorder, 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 Major depr ession, single episode 39049694 F32.9 Psychoacti ve substance dependence 9545626 F19.20 [id number] EDWIN EDWARDS MD [address] [address] 01/31/2024 13:45:20 01/31/2024 16:14:50 Anxiety disorder 838198525 F41.9 Attention deficit hyperactivity disorder, predominantly inattentive type 79625010 F90.0 Major depr ession, single episode 04407245 F32.9 Psychoacti ve substance dependence 5865147 F19.20 Scoliosis of thoracic spine 049439702 M41.84 [id number] EDWIN EDWARDS MD [address] [address] 02/29/2024 11:00:20 02/29/2024 11:50:21 Anxiety disorder 769990545 F41.9 Attention deficit hyperactivity disorder, predominantly inattentive type 61453079 F90.0 Major depr ession, single episode 72573149 F32.9 Psychoacti ve substance dependence 8439173 F19.20 Scoliosis of thoracic spine 907575116 M41.84 Constipation 07545197 K5 9.00 Gastroesop hageal reflux disease without esophagitis 474731005 K21.9 Contracept ion care management 167948925 Z30.9 Planned te lephone contact 138377854 Z76.89 [id number] EDWIN EDWARDS MD [address] [address] 03/28/2024 14:14:07 03/28/2024 15:31:27 Anxiety disorder 519611408 F41.9 Attention deficit hyperactivity disorder, predominantly inattentive type 58972451 F90.0 Major depr ession, single episode 81222924 F32.9 Gastroesop hageal reflux disease without esophagitis 439018548 K21.9 Hypothyroidism 02255897 E03.9 [id number] Jacquelyn Awad RN [address] [address] 06/19/2024 13:49:42 06/19/2024 16:32:38 Ulcer of foot 23038940 L97.252 [id number] EDWIN EDWARDS MD [facility] [address] [place] [address] 08/01/2024 12:45:26 08/01/2024 13:51:28 Gastroesophageal reflux disease without esophagitis 524159270 K21.9 Scoliosis of thoracic spine 057375949 M41.84 Anxiety disorder 6108171 06 F41.9 Adult heal th examination 872418116 Z00.00 Psychoacti ve substance dependence 8316258 F19.20 Medication monitoring 39 2576510 Z51.81 Health Concerns Section Related Observation LastModified by Organization Detai ls LastModified Time None Recorded Concern Status LastModified by Organization Details LastModified Time None Recorded Advance Directives Directive None Recorded Payers Encounter Date Sequence Insurance Name Policy Number Policy Ayoub Covered Member ID Ayoub Member ID Guarantor Name 01/31/2024 1 [employer] ([employer]ICAID) Karon Dayna Micro [id number] Karon M Micro 02/29/2024 1 [employer] ([employer]ICA[employer]) Karon M Aida [id number] Karon M Aida 03/28/2024 1 [employer] ([employer]ICAID) Karon M Micro [id number] Karon M Micro 06/19/2024 1 [employer] ([employer]ICA[employer]) Karon M Aida [id number] Karon M Aida Notes Date Note Type Note Provider Name and Address Organization Details Recorded Time 01/31/2024 text/html Telephone visit due to lack of transport. Follow-up of HANK, ADHD, PTSD MD [address], [place], [address], [facility]. 02/08/2024 18:00:10 03/28/2024 text/html Telephone visit due to lack of transportation. F/u of anxiety/depressi on/HANK/ADHD MD [address], [place], [address], [facility]. 03/29/2024 14:10:18 06/19/2024 text/html Ksenia is a 44-year-old female who presents with delayed healing of wounds of bilateral lower extremities. She states she will often hit her ankles or legs on rocks while at work. She develops ulcerative like wounds which she has been managing with Epsom salt soaks and Neosporin are not healing. Will have purulent drainage. Denies history of MRSA. Has not had fevers. Does have several wounds currently. Jacquelyn Awad RN [place], [place] - [facility]. 06/20/2024 08:39:29 OBGyn Episode No OBEpisode recorded.
--- OUTSIDE RECORDS SUMMARY | 2024-08-01 16:10 | XMS_ITS | Encounter Summary ---
Author Organization [facility] Address [address] [place] [address] Care Team Providers Care Concrete Bucket Hooker Name Role Phone Unavailable Primary Care Provider Unavailabl e Encounter Details Date Type Department Care Team (Late st Contact Info) Description 02/21/2000 Results Only [facility] [address] [place] [address] Antonio Morrison MD [address] [place] [phone] Social History Tobacco Use Types Packs/Day Years Used Date Smoking Tobacco: Never Assessed Comments Unknown Sex and Gender Information Value Date Recorded Sex Assigned at Not on file Legal Sex Female 18:24 EST Gender Identity Female 12/28/2023 10:18 EDT Sexual Orientation Not on file documented as of this encounter Plan of Treatment Not on file documented as of this encounter Procedures Procedure Name Priority Date/Time Associated Diagnosis Comments SURGICAL PATHOLOGY Routine 02/21/2000 0:00 EDT documented in this encounter Results * SURGICAL PATHOLOGY (02/21/2000 0:00 EDT) Pathology Report: SURGICAL PATHOLOGY REPORT Reports generated via electronic interface contain original data; however they are lacking the format of the original report. Caution should be taken when reading/interpreti ng unformatted reports. Name: ? AIDA KARON ? Accession #: ? [id number] ? : ? 1980 (Age: 20) ??F ? Collect Date: ? 02/21/2000 ? Location: ? [facility] ? Receive Date: ? 02/22/2000 ? Provider: RILEY MORRISON MD Copy to: CAIT DERAS MD ? Final Pathologic Diagnosis: A. ?Skin of thigh, right, excision: 1. ?Epidermal reparative change and dermal scar. 2. ?No residual melanocytic proliferation identified. B. ?Skin of back, mid, excision: 1. ?Epidermal reparative change and dermal scar. 2. ?No residual melanocytic proliferation identified. Document reviewed and electronically signed by: Rosalba Najera MD Report ??Date: 02/24/2000 16:43 By the signature above, the attending physician certifies that he/she has personally conducted a gross and/or microscopic examination of the described specimens and rendered or confirmed the above diagnosis. Specimen(s) Received: A. ?Excision site of nevus R thigh B. ?Excision site of nevus mid back Clinical History: ? Melanocytic nevus; see previous path report ([id number]) Gross Description: ? Received in formalin labelled [place] and #1 re-excision right thigh is a barbosa unoriented skin ellipse which measures 1.5 x 0.6 cm and is excised to a depth of 0.8 cm. ??There is a central barbosa-ahuja 0.7 x 0.3 cm scar. ??The specimen is inked, serially sectioned, and is entirely submitted as (A1) and (A2) with the distal tips submitted reverse en face as (A2). Received in formalin labelled [place] and #2 re-excision lesion back is a barbosa unoriented 2.1 x 0.8 cm hair-bearing skin ellipse excised to a depth of 0.8 cm. There is a barbosa-white 1.1 x 0.5 cm central flat scar. ??The specimen is inked, serially sectioned, and submitted entirely as (B1)-(B4) with the distal tips submitted reverse en face as (B4). ??(Selwyn Toro)/[facility] End of Report [facility] 02/21/2000 02/22/2000 15: 40 EDT us Antonio Morrison MD PATHOLOGY ORDERABLES Final Res ult [facility] [address] [place] [address] documented in this encounter Visit Diagnoses Not on filedocumented in this encounter
--- OUTSIDE RECORDS SUMMARY | 2024-08-01 16:10 | XMS_ITS | Encounter Summary ---
Author Organization [facility] Address [address] [place] [address] Care Team Providers Care Dietitian Helper Name Role Phone Sophia Edwards MD Primary Care Provider [phone] Encounter Details Date Type Department Care Team ([facility] st Contact Info) Description 03/30/2014 Results Only [facility] - [facility] ([facility] [address], [place] [phone] Sophia Edwards MD [address], [place] [phone] Social History Tobacco Use Types Packs/Day Years [...] Date/Time Associated Diagnosis Comments SURGICAL PATHOLOGY Routine 03/30/2014 10 :10 EDT documented in this encounter Results * SURGICAL PATHOLOGY (03/30/2014 10:10 EDT) Pathology Report: SURGICAL PATHOLOGY REPORT Reports generated via electronic interface contain original data; however they are lacking the format of the original report. Caution should be taken when reading/interpreti ng unformatted reports. Name: ? KARON PARRA ? Accession #: ? [id number] ? : ? 1980 (Age: 34) ??F ? Collect Date: ? 03/30/2014 ? Location: ? [facility] ? Receive Date: ? 03/31/2014 ? Provider: SOPHIA EDWARDS MD Copy to: ? Final Pathologic Diagnosis: SKIN OF THIGH, LEFT UPPER, PUNCH BIOPSY: - Seborrheic keratosis, pigmented. Microscopic Description: The stratum corneum is thickened by compact and basketweave orthokeratosis with formation of horn pseudocysts. ??The epidermis is acanthotic with formation of broad and anastomosing trabeculae. ??The trabeculae are composed of basaloid keratinocytes with round uniform nuclei. ??The keratinocytes have a variable amount of melanin pigment. ??(Dr. Najera)/[facility] Document reviewed and electronically signed by: GRISEL NAJERA MD Report ??Date: 04/02/2014 16:14 By the signature above, the attending physician certifies that he/she has personally conducted a gross and/or microscopic examination of the described specimens and rendered or confirmed the above diagnosis. Specimen(s) Received: 6.0 mm punch excision of slightly raised, uniformly firm lesion L upper thigh Clinical History: Newer lesion L upper thigh-catches on clothing Gross Description: ? Received in formalin labelled with proper patient identification (initials L, K) and Lt mole upper thigh is a punch biopsy of barbosa-white skin (0.5 cm in diameter and 0.3 cm in thickness). ??There is an eccentric circular barbosa-brown granular papule measuring 0.5 x 0.5 x 0.1 cm. ??Bisected and submitted in 1Natanael De Dios 03/31/2014 End of Report [facility] 03/30/2014 10:1 0 EDT 03/31/2014 10:10 EDT us Sophia Edwards MD PATHOLOGY ORDERABLES Final Resu lt [facility] [address] [place] [address] documented in this encounter Visit Diagnoses Not on filedocumented in this encounter Care Teams Dietitian Helper Relationship Specialty Start Date End Date Sophia Edwards MD [address] [place] [id number] PCP - General 10/22/13 documented as of this encounter
--- OUTSIDE RECORDS SUMMARY | 2024-08-01 16:10 | XMS_ITS | Referral Summary ---
Author Organization [facility] Address [address] [place] [address] Care Team Providers Care Licensed Vocational Nurse Name Role Phone Sophia Edwards MD Primary Care Provider [phone] Allergies Active Allergy Reactions Criticality Noted Date Comments Diphenhydramine Hcl 11/06/2013 Medications cloNIDine HCL (CATAPRES) 0.1 mg tablet Take 1 Tablet by mouth 2 times daily. 12/05/2023 Active gabapentin (NEURONTIN) 600 mg tablet Take 1 Tablet by mouth 2 times daily. 12/05/2023 Active SETLAKIN 0.15 mg-30 mcg (91) per tablet Take 1 Tablet by mouth daily. 06/13/2023 Active Social History Tobacco Use Types Packs/Day Years Used Date Smoking Tobacco: Every Day Cigarettes Tobacco Cessation:Ready to Q uit: Not Asked; Counseling Given: Not Answered Alcohol Use Standard Drinks/Week Comments Never 0 (1 standard drink = 0.6 oz pur e alcohol) Comments Unknown Sex and Gender Information Value Date Recorded Sex Assigned at Not on file Legal Sex Female 18:24 EST Gender Identity Female 12/28/2023 10:18 EDT Sexual Orientation Not on file Last Filed Vital Signs Vital Sign Reading Time Taken Comments Blood Pressure 117/91 12/28/2023 1335 EDT Pulse 63 12/28/2023 0238 EDT Temperature 36.5 ??C (97.7 ??F) 12/27/2023 1211 EDT Respiratory Rate 16 12/28/2023 1335 EDT Oxygen Saturation 99% 12/28/2023 1335 EDT Inhaled Oxygen Concentration - - Weight 72.6 kg (160 lb) 12/27/2023 1211 EDT Height 170.2 cm (5' 7) 12/27/2023 1211 EDT Body Mass Index 25.06 12/27/2023 1211 EDT Functional Status * Are you deaf or do you have serious difficulty hearing? Answer Date of Assessment Author No 12/27/2023 12:15 EDT Manisha Soto RN Plan of Treatment Not on file Insurance MEDICAID [employer] [place] Care Teams Licensed Vocational Nurse Relationship Specialty Start Date End Date Sophia Edwards MD [address] [place] [address] PCP - General 10/22/13
--- OUTSIDE RECORDS SUMMARY | 2024-08-01 16:10 | XMS_ITS | Continuity of Care Document ---
Author Organization [place] - [facility], [facility] Address [address] [place] [address] Assessment No assessment recorded. Plan of Treatment Reminders Order Date Submit Date Provider Last Modified By Organization Details Last Modified Time Details Appointments Office Visit 30 2023 01:00P M EDWIN ROSARIO Not available Not available Not available Nurse Visit 20 2023 02:00P M Tc Nursing Staff Not available Not available Not available Follow Up 2023 11:10A M EDWIN ROSARIO Not available Not available Not available Lab culture, wound - Left ankle 2023 [facility] (Registration ), [address] , [place], [address], 06/20/2024 08:34:32 Referral wound care referral - Please have Erica Ley evaluate 2023 024 [facility], [address] [place] [address] , [address], [place], [address], 07/22/2024 14:43:06 Procedures None recorded. Surgeries None recorded. Imaging None recorded. Medication Orders Bactrim DS 800 mg-160 mg tablet 2023 024 [facility], [address], [place], [address], 08/01/2024 13:01:01 Patient TargetsNo targets recorded. Patient Instructions Encounter Date Encounter Id Patient Instructions Last Modified By Organization Details Last Modified Time 06/19/2024 [id number] 1. I have sent prescription for an [...] Abnormal Flag Note LastModifiedBy Organization Detail LastModifiedTime 06/02/20 24 10/31/2021 MAMMO niteshg No observ ation record ed. Not Available 06/02 07:06:40 06/02/20 24 10/10/2021 MAMMO niteshg No observ ation record ed. Not Available 06/02 07:06:41 06/02/20 24 04/20/2022 niharika PATTERSON No observ ation record ed. Not Available 06/02 07:06:42 06/02/20 24 04/20/2022 MAMMO niteshg No observ ation record ed. Not Available 06/02 07:06:46 06/02/20 24 07/31/2022 imagi ng/di agnos tic resul t No observ ation record ed. Not Available 06/02 07:06:47 06/02/20 24 07/31/2022 imagi ng/di agnos tic resul t No observ ation record ed. Not Available 06/02 07:06:48 06/02/20 24 12/13/2021 imagi ng/di agnos tic resul t No observ ation record ed. Not Available 06/02 07:07:26 06/02/20 24 10/31/2021 US, niharika t, bilat eral No observ ation record ed. Not Available 06/02 07:09:30 06/02/20 24 05/07/2023 imagi ng/di agnos tic resul t No observ ation record ed. Not Available 06/02 07:09:34 06/02/20 24 09/12/2022 imagi ng/di agnos tic resul t No observ ation record ed. Not Available 06/02 07:09:35 06/21/20 24 06/21/2024 vrad repor t Patipetros t Name: Toribio Parra Unit #: [id number] Loc: ER Carlos driscoll Provid er: Flor t #: [id number] Status : REG ER Primar y [...] No acute findin gs. Dictat ed and Melodie grider d by: Jann Torres MD. Carlos driscoll:Reyes pan MD Access ion#=[id number] Miles estrada By: CC: ------ ------ ------ ------ ------ ------ ------ ------ ------ ------ ------ ------ ---- Dictat ed By: Report s vrad [id number] Transc ribed By: Di Merge 1013 This is privil eged, confid ential inform ation intend ed only for the provid er named. Any use or distri bution by any person other than this provid er is strict ly prohib ited. If you receiv e this report in error, please notify us immedi ately at [phone] and return the origin al report to us at the addres s above. Thank- you. [place] [id number], [place], [address] 06/23/2024 06:19:53 06/21/2006/21/2024 x-ray imagi ng repor t Patien t Name: Toribio Parra Unit #: [id number] Loc: ER Orderi ng Provid er: Flora Worrell M.D. Accoun t #: [id number] Status : DEP ER Primar y Care Provid er: Marla [...] ------ - Dictat ed By: Papito Rodriguez 1608 Transc ribed By: Hipolito Zhao 1608 This is privil eged, confid ential inform ation intend ed only for the provid er named. Any use or distri bution by any person other than this provid er is strict ly prohib ited. If you receiv e this report in error, please notify us immedi meliza at and return the origin al report to us at the addres s above. Thank- you. INTERFACE [facility] [address], [place], [address] 06/21/2024 16:13:35 Result Notes None recorded. Problems Name Problem SNOMED Code Status Onset Date Resolution Date Notes Provider Name and Address Organization Details Recorded Time Herpesvi kassandra infectio n [id number] Active 2003 Problem Code: B00.9; Problem Code Type: ICD-10; Not Available [facility] 3 04:21:51 Anxiety disorder 665692830 Active 200303/27/20 22 - Comments only - Edwin Rosario MD - she does find the clonidin e helpful for anxiety and would like to remain on that. Buspar added to adverse rx list. Problem Code: F41.9; Problem Code Type: ICD-10; Not Available [facility] 3 04:21:51 Major depressi on, single episode 46361665 Active 200108/21/20 21 - Comments only - Edwin Rosario MD - /PTSD/dy sthymia/ chronic fatigue. She is hesitant to try another medicati on. She states wellbutr in helped for 6 months at one point, but then triggere d increase d aggitati on. WIll await TFT results then discuss further. SHe is taking vitamin D Problem Code: F32.9; Problem Code Type: ICD-10; Not Available [facility] 3 04:21:51 Posttrau matic stress disorder 91727636 Active 200705/02/20 23 - Comments only - Edwin Rosario MD - /Mood disorder /situati onal depressi on. She had historic ally trialed SNRIs/SS RIs without particul ar benefit. She has found clonidin e benefici al for anxiety and is wonderin g if she can increase the dose. We will have her increase from 0.1 mg twice daily to 3 times daily. Problem Code: F43.10; Problem Code Type: ICD-10; Not Available [facility] 3 04:21:51 Attentio n deficit hyperact ivity disorder , predomin antly inattent reyna type 52259679 Active 201305/02/20 23 - Comments only - Edwin Rosario MD - For which she historic ally has found Vyvanse to be helpful both for focusing and to calm irritabi lity. See discussi on above with ongoing HANK. I will contact [facility] for their input. 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 Problem Code: D51.0; Problem Code Type: ICD-10; Not Available [facility] 3 04:21:51 Irritabl e bowel syndrome 99254016 Active 201408/21/20 21 - Comments only - Edwin Rosario MD - /GERD -symptom s remainin g fairly stable - taking the pantapra zole regulari ly, librax she uses sparingl y. Problem Code: K58.9; Problem Code Type: ICD-10; Not Available [facility] 3 04:21:51 Scoliosi s of thoracic spine 174682973 Active 2015 Problem Code: M41.84; Problem Code Type: ICD-10; Not Available [facility] 3 04:21:52 Dizzines s and giddines s 120203355 Active 2015 Problem Code: R42; Problem Code Type: ICD-10; Not Available [facility] 3 04:21:52 Congenit al anomaly of limb 93829070 Active 2016 Problem Code: Q74.9; Problem Code Type: ICD-10; Not Available [facility] 3 04:21:52 Psycholo gic dyspareu luis alberto 43580468 Active 2016 Problem Code: F52.6; Problem Code Type: ICD-10; Not Available [facility] 3 04:21:52 Therapeu tic drug monitori ng assay 38244909 Active 2016 Problem Code: Z51.81; Problem Code Type: ICD-10; Not Available [facility] 3 04:21:52 Chronic fatigue syndrome 50214629 Active 201609/20/19 19 - Comments only - [...] R53.82; Problem Code Type: ICD-10; Not Available [facility] 3 04:21:52 Mood disorder 43035055 Active 201711/01/19 21 - Comments only - Edwin Rosario MD - Karon was followin g with [facility] but her provider left the practice . I will give her rfs on her seroquel and lamictal for now, but I do want her getting schedule d with psychiat ry again once availabl e. Problem Code: F39; Problem Code Type: ICD-10; Not Available [facility] 3 04:21:52 History of recurren t pneumoni a 543524818 Active 2017 Problem Code: Z87.01; Problem Code Type: ICD-10; Not Available [facility] 3 04:21:52 Gastroes ophageal reflux disease without esophagi tis 175996464 Active 201811/01/19 21 - Comments only - Edwin Rosario MD - due for a TSH - ordered. On levothyr oxine. Problem Code: K21.9; Problem Code Type: ICD-10; Not Available [facility] 3 04:21:53 Immunogl obulin level - finding 918939020 Active 201807/08/20 19 - Comments only - Koby Beasley - Her last viral load for HIV was negative . She feels happy about that. Problem Code: R76.8; Problem Code Type: ICD-10; Not Available [facility] 3 04:21:53 Carpal tunnel syndrome 29787031 Active 201904/01/20 20 - Comments only - Edwin Rosario MD - she is getting definite improvem ent with the carpal tunnel spints - encourag e her to wear them at night also Problem Code: G56.00; Problem Code Type: ICD-10; Not Available [facility] 3 04:21:53 Adult health examinat ion Active 202006/11/20 22 - Comments only - Edwin Rosario MD - requesti ng a DM check - A1c 5.2, reassure d that she does not have DM Problem Code: Z00.00; Problem Code Type: ICD-10; Not Available [facility] 3 04:21:53 Hypothyr oidism 37610138 Active 202010/28/19 23 - Comments only - Edwin Rosario MD - Due for TFTs. She states she has been consiste ntly taking her levothyr oxine. Problem Code: E03.9; Problem Code Type: ICD-10; Not Available [facility] 3 04:21:53 Sleep apnea 74918785 Active 202112/24/19 22 - Comments only - Edwin Rosario MD - diagnose d recently with the sleep clinic - will be set up with CPAP once availabl e. Problem Code: G47.30; Problem Code Type: ICD-10; Not Available [facility] 3 04:21:53 Breast composit ion 634045776 Active 202106/11/20 22 - Comments only - Edwin Rosario MD - f/u u/s reassuri ng - stable cyst. Can resume annual screenin g Not Available [facility] 3 04:21:53 Non-scar ring alopecia 602674288 Active 202110/28/19 23 - Comments only - Edwin Rosario MD - , We will be checking her TFTs as below. We have also been getting reports of people with hair loss followin g COVID infectio n. This is a diffuse thinning , not alopecia areata. Problem Code: L65.9; Problem Code Type: ICD-10; Not Available [facility] 3 04:21:53 Congenit al anomaly of integume nt 97508141 Active 202105/02/20 23 - Comments only - Edwin Rosario MD - , Other areas that she states were related to injury do not currentl y appear infected . If there is any worsenin g she will let me know. Problem Code: Q84.9; Problem Code Type: ICD-10; Not Available [facility] 3 04:21:54 Solitary nodule of lung 799117647 Active 2021 Problem Code: R91.1; Problem Code Type: ICD-10; Not Available [facility] 3 04:21:54 Lyme disease 67929118 Active 2022 Problem Code: A69.20; Problem Code Type: ICD-10; Not Available [facility] 3 04:21:54 Dermatop hytosis 48171194 Active 2022 Problem Code: B35.9; Problem Code Type: ICD-10; Not Available [facility] 3 04:21:54 Family history of malignan t neoplasm 963063151 Active 202201/28/20 23 - Comments only - Edwin Rosario MD - , Mother and other family members have had melanoma . Skin check today was within normal limits, will also refer her to [facility] to schedule for annual skin checks. Problem Code: Z80.8; Problem Code Type: ICD-10; Not Available [facility] 3 04:21:54 Knee joint effusion 291789203 Active 202202/12/20 - Comments only - Edwin Rosario MD - , Right. No current pain. [...] M25.469; Problem Code Type: ICD-10; Not Available [facility] 3 04:21:55 Psychoac tive substanc e abuse 05648072 Active 2022 Problem Code: F19.10; Problem Code Type: ICD-10; Not Available [facility] 3 04:21:55 Psoriasi s 3694617 Active 2022 Problem Code: L40.9; Problem Code Type: ICD-10; Not Available [facility] 3 04:21:55 Lung field abnormal 132094319 Active 2022 Problem Code: R91.8; Problem Code Type: ICD-10; Not Available [facility] 3 04:21:55 Low back pain 264637832 Completed 200506/09/2022 Problem Code: M54.5; Problem Code Type: ICD-10; Not Available [facility] 3 04:21:55 Sleep disorder 36023958 Completed 201503/23/2022 Problem Code: G47.9; Problem Code Type: ICD-10; Not Available [facility] 3 04:21:55 Pain in left lower limb 132840054 Completed 201903/23/2022 Problem Code: M79.605; Problem Code Type: ICD-10; Not Available [facility] 3 04:21:56 Abdomina l pain 05023496 Completed 201803/23/2022 Problem Code: R10.9; Problem Code Type: ICD-10; Not Available [facility] 3 04:21:56 Venereal disease screenin g Completed 201806/09/2022 Problem Code: Z11.3; Problem Code Type: ICD-10; Not Available [facility] 3 04:21:56 Abnormal weight loss 256209127 Completed 200403/23/2022 Problem Code: R63.4; Problem Code Type: ICD-10; Not Available [facility] 3 04:21:56 Spasm 26795426 Completed 201503/23/2022 Problem Code: M62.838; Problem Code Type: ICD-10; Not Available [facility] 3 04:21:56 Cyclical vomiting syndrome 13846109 Completed 201606/09/2022 Problem Code: G43.A0; Problem Code Type: ICD-10; Not Available [facility] 3 04:21:57 Depressi ve disorder 87919432 Completed 200106/13/2023 10/28/19 23 - Comments only - Edwin Rosario MD - /Mood disorder . She has [...] prefer to have her meet with a [facility] provider to ease out the diagnosi sNatanael Mccormack is amenable . She does have counseli ng through [facility] although has not had consiste ntly the same counselo r there for a while. She ultimate ly might benefit from a consiste nt counselo r through [facility]. Not Available [facility] 3 04:21:57 Adjustme nt disorder 58128647 Completed 201903/23/2022 Problem Code: F43.20; Problem Code Type: ICD-10; Not Available [facility] 3 04:21:57 Disorder of skin and/or subcutan eous tissue 60115998 Active 201507/05/20 23 - Comments only - Aliyah Meade -J[facility]- - -Clean the area with soap and water, traced the area of erythema with a sharpie, and applied bacitrac in ointment and a bandage. Reviewed signs and symptoms warranti yamila a call to the office. She does feel that the erythema tous area is smaller today than it was yesterda y, and the site is draining serosang uineous fluid only. Problem Code: L98.9; Problem Code Type: ICD-10; Not Available [facility] 4 05:37:46 Child attentio n deficit disorder 214121948 Completed 201306/13/2023 Problem Code: 314.00; Problem Code Type: ICD-9; Not Available [facility] 3 04:21:57 Pernicio us anemia 25665785 Completed 201206/13/2023 Problem Code: 281.0; Problem Code Type: ICD-9; Not Available [facility] 3 04:21:58 Herpesvi ral vesicula r dermatit is 091739882 Completed 200306/13/2023 Not Available [facility] 3 04:21:58 Pain in thoracic spine 593667001 Completed 201503/23/2022 Problem Code: M54.9; Problem Code Type: ICD-10; Not Available [facility] 3 04:21:58 Exposure to potentia lly harmful entity Completed 201403/23/2022 Problem Code: Z77.120; Problem Code Type: ICD-10; Not Available [facility] 3 04:21:58 Weight loss 14835344 Completed 200406/13/2023 Not Available [facility] 3 04:21:58 Peripher al nerve disease 595898461 Completed 201306/13/2023 Not Available [facility] 3 04:21:59 Verruca vulgaris 51872663 Completed 201403/23/2022 Problem Code: B07.9; Problem Code Type: ICD-10; Not Available [facility] 3 04:21:59 Disorder of respirat ory system 30773609 Completed 201606/09/2022 Problem Code: J98.8; Problem Code Type: ICD-10; Not Available [facility] 3 04:21:59 Periapic al abscess 542675831 Completed 201903/23/2022 Problem Code: K04.7; Problem Code Type: ICD-10; Not Available [facility] 3 04:21:59 Fatigue 67425360 Completed 201506/09/2022 Problem Code: R53.83; Problem Code Type: ICD-10; Not Available [facility] 3 04:22:00 Insect bite Completed 202003/23/2022 Not Available [facility] the [facility] 3 04:22:00 Elevated blood-pr essure reading without diagnosi s of hyperten al 739298784 Completed 202006/11/2022 Problem Code: R03.0; Problem Code Type: ICD-10; Not Available [facility] 3 04:22:00 Cellulit is 541474965 Completed 201803/23/2022 Problem Code: L03.90; Problem Code Type: ICD-10; Not Available [facility] 3 04:22:00 Generali zed hyperhid rosis 051462686 Completed 201803/23/2022 Problem Code: R61; Problem Code Type: ICD-10; Not Available [facility] 3 04:22:01 Skin finding 168967523 Completed 201906/09/2022 Problem Code: R23.8; Problem Code Type: ICD-10; Not Available [facility] 3 04:22:01 Onychomy cosis due to dermatop hyte 365977081 Completed 201403/23/2022 Problem Code: B35.1; Problem Code Type: ICD-10; Not Available [facility] 3 04:22:01 Abnormal weight gain 984486391 Completed 201703/23/2022 Problem Code: R63.5; Problem Code Type: ICD-10; Not Available [facility] 3 04:22:02 Noninfla mmatory disorder of the vagina 43943012 Completed 201606/09/2022 Problem Code: N89.8; Problem Code Type: ICD-10; Not Available [facility] 3 04:22:02 History of SARS-CoV -2 [id number] 8093512 Active 202207/05/20 23 - Comments only - Aliyah Calhoun [facility] - - She is now 2 weeks [...] Z86.16; Problem Code Type: ICD-10; Not Available [facility] 4 05:37:47 Constipa tion 31155061 Active 202207/05/20 23 - Comments only - Aliyahbouchra Negronshay -Javy [facility]- - - Recommen ded she start MiraLAX 1 cap daily and increase her fluids, with a goal of at least 1 formed BM daily. -She may need to add a fiber suppleme nt as well. Problem Code: K59.00; Problem Code Type: ICD-10; Not Available [facility] 05:37:47 Ulcer of foot 77871399 Active [address], [place], [address] [facility] 16:30:02 Notes:*Problem Name: H/o Hiral rosalia And Heroine Use *ICD-10 Codes: *Problem Status: inactive *Comments: *Note Date: 06/09/2008 Problem Notes None recorded. Medical Equipment None Reported. Allergies Allergen ID Allergen Name Allergen Category Reaction Reaction Severity Criticality Documentation Date Start Date Code Code System Note Provider Name and Address Organization Details Recorded Time 05802 Lunesta medicatio n Not available Not available Not available 06/19/2024 54284 4 RxNorm JANEL Brewer, [facility] 15:16:40 77255 Geodon medicatio n Not available Not available Not available 06/19/2024 24261 4 RxNorm JANEL Brewer, [facility] 15:16:50 34412 Benadryl medicatio n Not available Not available Not available 06/19/2024 40531 7 RxNorm JANEL Brewer, [facility] 15:16:59 90652 trazodone medicatio n Not available Not available Not available 06/19/2024 16978 RxNorm JANEL Brewer, [facility] 4 15:17:09 83908 Cymbalta medicatio n Not available Not available Not available 06/19/2024 32187 4 RxCrissyfredi JANEL Brewer, [facility] 4 15:17:18 72949 Ambien medicatio n Not available Not available Not available 06/19/2024 58262 5 RxNoJANEL Grigsby, [facility] 4 15:17:33 49120 buspirone medicatio n Not available Not available Not available 06/19/2024 1827 RxJANEL Myers, [facility] 4 15:17:45 Medications Name Sig Start Date [...] 103 mm[Hg] 66 mm[Hg] Hilda Chong MA [facility] 15:16:08 Social History Question Answer Notes LastModified by Organizat ion Details LastModified Time Tobacco Smoking Status Current Every Day Smoker Hilda Chong MA null, [facility] 06/19/2024 15:22:03 What Was The Date Of Your Most Recent Tobacco Screening? 06/19/2024 [email or web address] Information not available 06/19/2024 At What Age Did You Start Smoking Tobacco? 17 [email or web address] Information not available 06/19/2024 How Much Tobacco Do You Smoke? 1 PPD 3/4 Pack Daily Information not available 08/01/2024 Has Tobacco Cessation Counseling Been Provided? Yes [email or web address] Information not available 06/19/2024 On What Date Was Tobacco Cessation Counseling Provided? 06/19/2024 [email or web address] Information not available 06/19/2024 How Many Years Have You Smoked Tobacco? 15 [email or web address] Information not available 06/19/2024 Do You Or Have You Ever Used Any Other Forms Of Tobacco Or Nicotine? No [email or web address] Information not available 06/19/2024 Sex: Female Functional [...] age healthy Father: alive age 65, 2 ?[place] , cataracts Mother: alive age 62, HEALTHY Sisters: none Brothers: healthy Family History of: Cardiovascular conditions: GM 50-60 from [place] Cancer: lung [place] Other: HTN Medical History No medical history recorded. Gynecological HistoryNo gynecological history recorded. Obstetrics History GPAL:G 0 P 0 0 0 0 Immunizations Vaccine Type Date Status Provider Name and Address Organization Details Recorded Time Td (adult), 2 Lf tetanus toxoid, preservative free, adsorbed 03/30/2020 completed Not Available [facility] 07/27/2023 06:07:07 Tdap 02/24/2014 completed Not Available [facility] 06:07:07 Tdap 07/31/2022 completed Not Available [facility] 06:07:07 Td(adult) unspecified formulation 04/08/2003 completed Not Available [facility] 07/27/2023 06:07:07 influenza, unspecified formulation 10/04/2006 completed Not Available [facility] 07/27/2023 06:07:07 influenza, unspecified formulation 07/27/2003 completed Not Available [facility] 07/27/2023 06:07:07 Past Encounters Encounter ID Performer Location Encounter Start Date Encounter Closed Date Diagnosis/Indication Diagnosis SNOMED-CT Code Diagnosis ICD10 Code [id number] Jacquelyn Awad RN [address] [address] 06/19/2024 13:49:42 06/19/2024 16:32:38 Ulcer of foot 47807983 L97.909 Health Concerns Section Related Observation LastModified by Organization Detai ls LastModified Time None Recorded Concern Status LastModified by Organization Details LastModified Time None Recorded Payers Encounter Date Sequence Insurance Name Policy Number Policy Ayoub Covered Member ID Ayoub Member ID Guarantor Name 06/19/2024 1 [facility] (MEDICAID) Karon Parra [id number] Karon Parra Notes Date Note Type Note Provider Name and Address Organization Details Recorded Time 06/19/2024 text/html Ksenia is a 44-year-old female [...] have several wounds currently. Jacquelyn Awad RN [facility], [place] - [facility]. 06/20/2024 08:39:29 OBGyn Episode No OBEpisode recorded.
--- OUTSIDE RECORDS SUMMARY | 2024-08-01 16:10 | XMS_ITS | Clinical Summary ---
Author Organization [facility] [place] [address] Care Team Providers Care X Ray Control Equipment Repairer Name Role Phone Sophia Edwards MD Primary Care Provider [phone] Allergies Active Allergy Reactions Criticality Noted Date Comments Diphenhydramine Hcl 11/06/2013 Medications Medication Sig Dispensed Refills Start Date End Date Status UNABLE TO FIND Symboxone Active Active Problems Problem Noted Date Diagnosed Date Nevus 11/06/2013 Social History Tobacco Use Types Packs/Day Years Used Date Smoking Tobacco: Unknown Sex and Gender Information Value Date Recorded Sex Assigned at Not on file Gender Identity Not on file Sexual Orientation Not on file Plan of Treatment Health Maintenance Due Date Last Done Comments HIV screen 1999 Hepatitis C Screening 1999 Hepatitis B vaccine (0-59 yrs) (1) 02/14/2000 Tetanus/Diphtheria/Pertussis Vaccines (1 - Tdap) 02/13 HPV test 2011 PAP Smear 2011 Breast Cancer Share Decision Needed 2021 Breast Cancer screening 2021 Covid-19 Vaccine ( - 2023- season) 2024 Influenza (Flu) vaccine (1 o f 1 - Influenza standard series) 05/18/2024 Care Teams X Ray Control Equipment Repairer Relationship Specialty Start Date End Date Sophia Edwards MD [address] [place], [place] [id number] PCP - General 11/06/13
--- OUTSIDE RECORDS SUMMARY | 2024-08-01 16:10 | XMS_ITS | Clinical Summary ---
Author Organization [facility] Address [address] [place] [address] Care Team Providers Care Library Services Dean Name Role Phone Sophia Edwards MD Primary Care Provider [phone] Allergies Active Allergy Reactions Criticality Noted Date [...] 10:18 EDT Sexual Orientation Not on file Obstetrics History Last Filed Vital Signs Vital Sign Reading [...] Body Mass Index 25.06 12/27/2023 1211 EDT Plan of Treatment Health Maintenance Due Date Last Done Comments Hepatitis C Screen 1981 Hepatitis B Vaccine (1 of 3 - 19+ 3-dose series) 02/13 COVID-19 Vaccine (2023- season) 2024 Insurance [place] Care Teams Library Services Dean Relationship Specialty Start Date End Date Sophia Edwards MD [address] [place] [address] PCP - General 10/22/13
--- OUTSIDE RECORDS SUMMARY | 2024-08-01 16:10 | XMS_ITS | Encounter Summary ---
Author Organization [facility] Address [address] [place] [address] Care Team Providers Care Local Sales Associate Name Role Phone Sophia Edwards MD Primary Care Provider [phone] Encounter Details Date Type Department Care Team (Latest Contact Info) Description 07/11/2016 9:53 EDT - 07/11/2016 23:59 EDT Hospital Encounter [address] [address] Unknown, Provider, Discharge Disposition: Home or Self Care Social History Tobacco Use Types Packs/Day Years Used Date Smoking Tobacco: Never Assessed Comments Unknown Sex and Gender Information Value Date Recorded Sex Assigned at Not on file Legal Sex Female 18:24 EST Gender Identity Female 12/28/2023 10:18 EDT Sexual Orientation Not on file documented as of this encounter Discharge Disposition Disposition Code Departure Means Destination Home or Self Jail documented in this encounter Plan of Treatment Not on file documented as of this encounter Visit Diagnoses Not on filedocumented in this encounter Care Teams Local Sales Associate Relationship Specialty Start Date End Date Sophia Edwards MD [address] [place] [address] PCP - General 10/22/13 documented as of this encounter
--- OUTSIDE RECORDS SUMMARY | 2024-08-01 16:10 | XMS_ITS | Encounter Summary ---
Author Organization [facility] Address [address] [place] [address] Care Team Providers Care Title Insurance Agent Name Role Phone Unavailable Primary Care Provider Unavailabl e Encounter Details Date Type Department Care Team ([facility] [facility] st Contact Info) Description 10/17/2013 Results Only [facility] Laboratory Services - [facility] ([facility]) [address] [place], [place] [address] Sophia Edwards MD [address] [place], [place] [id number] Social History Tobacco Use Types Packs/Day Years [...] Date/Time Associated Diagnosis Comments SURGICAL PATHOLOGY Routine 10/17/2013 21 :45 EST documented in this encounter Results * SURGICAL PATHOLOGY (10/17/2013 21:45 EST) Pathology Report: SURGICAL PATHOLOGY REPORT Reports generated via electronic interface contain original data; however they are lacking the format of the original report. Caution should be taken when reading/interpreti ng unformatted reports. Name: ? KARON PARRA ? Accession #: ? [id number] ? : ? 1980 (Age: 33) ??F ? Collect Date: ? 10/17/2013 ? Location: ? [facility] ? Receive Date: ? 10/20/2013 ? Provider: SOPHIA EDWARDS MD Copy to: ? Final Pathologic Diagnosis: SKIN OF JAW, LEFT, SHAVE BIOPSIES: - Seborrheic keratosis, pigmented. ?? Microscopic Description: The stratum corneum is thickened by compact and basketweave orthokeratosis with formation of horn pseudocysts. ??The epidermis is acanthotic with formation of broad and anastomosing trabeculae. ??The trabeculae are composed of basaloid keratinocytes with round uniform nuclei. ??The keratinocytes have a variable amount of melanin pigment. ??(Dr. Lutz)/n Document reviewed and electronically signed by: JUAN LUTZ MD Report ??Date: 10/22/2013 16:28 By the signature above, the attending physician certifies that he/she has personally conducted a gross and/or microscopic examination of the described specimens and rendered or confirmed the above diagnosis. Specimen(s) Received: Shave bx of 5.0 mm lesion L jaw (came off in 2 sections) Clinical History: 5.0 mm raised, uniformly brown lesion; seborrheic keratosis vs nevus Gross Description: ? Received in formalin labelled with proper patient identification (initials L, K) and L jaw is a shave biopsy of an irregular barbosa-brown granular papule (0.6 x 0.5 x 0.2 cm). ??Also received is a 0.5 x 0.2 x 0.2 cm irregular barbosa-ahuja fragment. ??Entirely submitted in 1 papule, bisected and 2 skin fragment, intact. Carina De Dios 10/21/2013 08:30 AM End of Report [facility] 10/17/2013 21:4 5 EST 10/20/2013 21:45 EST us Sophia Edwards MD PATHOLOGY ORDERABLES Final Resu lt [facility] [address] [place] [address] documented in this encounter Visit Diagnoses Not on filedocumented in this encounter
--- OUTSIDE RECORDS SUMMARY | 2024-08-01 16:10 | XMS_ITS | Encounter Summary ---
Author Organization [facility] Address [address] [place] [address] Care Team Providers Care Diagnostic Technologist Name Role Phone Unavailable Primary Care Provider Unavailabl e Encounter Details Date Type Department Care Team (Latest Contact Info) Description 10/20/2013 10:45 EST - 10/20/2013 23:59 EST Hospital Encounter [address] [address] Unknown, Provider, MD Discharge Disposition: Home or Self Care Social [...] Code Departure Means Destination Home or Self Correction documented in this encounter Plan of Treatment Not on file documented as of this encounter Visit Diagnoses Not on filedocumented in this encounter
--- OUTSIDE RECORDS SUMMARY | 2024-08-01 16:10 | XMS_ITS | Encounter Summary ---
Author Organization [facility] Address [address] [place] [address] Care Team Providers Care Cad Application Support Specialist Name Role Phone Sophia Edwards MD Primary Care Provider [phone] Encounter Details Date Type Department Care Team ([facility] st Contact Info) Description 07/11/2016 Results Only [facility] [phone] Sophia Edwards MD [address] [place] [address] Social History Tobacco Use Types Packs/Day Years [...] Date/Time Associated Diagnosis Comments SURGICAL PATHOLOGY Routine 07/11/2016 14 :57 EDT documented in this encounter Results * SURGICAL PATHOLOGY (07/11/2016 14:57 EDT) Pathology Report: SURGICAL PATHOLOGY REPORT Reports generated via electronic interface contain original data; however they are lacking the format of the original report. Caution should be taken when reading/interpret ing unformatted reports. Name: ? KARON PARRA ? Accession #: ? [id number] ? : ? 1980 (Age: 36) ??F ? Collect Date: ? 07/11/2016 ? Location: ? [facility] ? Receive Date: ? 07/13/2016 ? Provider: SOPHIA EDWARDS MD Copy to: ? Final Pathologic Diagnosis: SKIN OF THIGH, RIGHT POSTERIOR, SHAVE EXCISION: - Seborrheic keratosis, pigmented. - Seborrheic keratosis present at peripheral and deep tissue edges. Microscopic Description: The stratum corneum is thickened by laminated orthohyperkeratos is. ??The epidermis is hyperplastic with papillomatosis and acanthosis. ??The keratinocytes have a basaloid appearance with round regular nuclei. ??(Dr. Najera)/[facility] Document reviewed and electronically signed by: GRISEL NAJERA MD Report ??Date: 07/14/2016 13:21 By the signature above, the attending physician certifies that he/she has personally conducted a gross and/or microscopic examination of the described specimens and rendered or confirmed the above diagnosis. Specimen(s) Received: Shave excision at posterior R thigh Clinical History: Lesion posterior R thigh that intermittently enlarges and is more protuberant, brown, currently flat, a little scaly Gross Description: ? Received in formalin labelled with proper patient identification (initials L, K) and lesion right thigh is a 0.5 x 0.4 x 0.1 cm triangular shave of brown-ahuja skin. The definitive masses or lesions are identified on the skin surface. The margin is inked black. The tissue is trisected and entirely submitted in 1. BRIDGER Maria (ASCP) 07/13/2016 4:19 PM End of Report [facility] 07/11/2016 14:5 7 EDT 07/13/2016 14:57 EDT us Sophia Edwards MD PATHOLOGY ORDERABLES Final Resu lt [facility] [address] [place] [address] documented in this encounter Visit Diagnoses Not on filedocumented in this encounter Care Teams Cad Application Support Specialist Relationship Specialty Start Date End Date Sophia Edwards MD [address] [place] [address] PCP - General 10/22/13 documented as of this encounter
--- OUTSIDE RECORDS SUMMARY | 2024-08-01 16:10 | XMS_ITS | Encounter Summary ---
Author Organization [facility] Address [address] [place] [address] Care Team Providers Care Title I Assistant Name Role Phone Sophia Edwards MD Primary Care Provider [phone] Encounter Details Date Type Department Care Team ([facility] st Contact Info) Description 02/16/2017 Results Only [facility] [phone] Sophia Edwards MD [address] [place] [id number] Social History Tobacco Use Types Packs/Day Years [...] Date/Time Associated Diagnosis Comments SURGICAL PATHOLOGY Routine 02/16/2017 23 :22 EDT documented in this encounter Results * SURGICAL PATHOLOGY (02/16/2017 23:22 EDT) Pathology Report: SURGICAL PATHOLOGY REPORT Reports generated via electronic interface contain original data; however they are lacking the format of the original report. Caution should be taken when reading/interpreti ng unformatted reports. Name: ? KARON PARRA ? Accession #: ? [id number] ? : ? 1980 (Age: 37) ??F ? Collect Date: ? 02/16/2017 ? Location: ? [facility] ? Receive Date: ? 02/17/2017 ? Provider: SOPHIA EDWARDS MD Copy to: ? Final Pathologic Diagnosis: A. ??SKIN OF ABDOMEN, PUNCH BIOPSY: - Melanocytic nevus, compound type, with unusual architectural features and mild cytologic atypia. - Nevus does not extend to edges of punch biopsy specimen in the plane of the sections examined. B. ??SKIN OF BACK, SHAVE EXCISION: - Melanocytic nevus, compound type, with unusual architectural features and mild cytologic atypia. - Nevus does not extend to edges of shave excision specimen in the plane of the complete sections examined. Microscopic Description: The epidermis is hyperplastic with elongate and anastomosing rete ridges. ??There is a circumscribed proliferation of melanocytes with epidermal and dermal components. ??The intraepidermal melanocytes are arranged in nests and as individual cells in a lentiginous pattern. ??The nests predominate and vary in size, shape, and spacing. ??Some of the nests bridge between rete ridges. Although the individual melanocytes are unevenly spaced in some areas, they show no tendency toward confluent growth or upward migration. ??The melanocytes are enlarged and show a mild degree of nuclear size and shape variation. ??The dermal component consists of nests and cords of similar melanocytes that show furniture detailer maturation with descent. ??There is papillary dermal fibroplasia. ??(Dr. Najera)/[facility] Document reviewed and electronically signed by: GRISEL NAJERA MD Report ??Date: 02/20/2017 17:02 By the signature above, the attending physician certifies that he/she has personally conducted a gross and/or microscopic examination of the described specimens and rendered or confirmed the above diagnosis. Specimen(s) Received: A. ??Abdomen 6.0 mm punch biopsy B. ??Back shave excision Clinical History: Atypical nevi; A. 3.0 x 5.0 mm, irregular shape and color; B. raised patient flow coordinator area with circumferential darkening Gross Description: A. ? Received in formalin labelled with proper patient identification (initials L, K) and abdomen is a 0.6 cm circular piece of skin, excised to a depth of 0.4 cm. Approximately 50% of the skin surface shows a flat to centrally raised dark brown lesion with irregular borders. Bisected and entirely submitted in A1. B. ?Received in formalin labelled with proper patient identification (initials L, K) and back is an irregularly shaped piece of skin (0.8 x 0.7 x 0.1 cm). The skin surface shows an eccentrically located rubbery barbosa-brown papule (0.5 x 0.4 x 0.15 cm). The margin is inked. Trisected and entirely submitted in B1. BRIDGER Phelps (ASCP) 02/19/2017 8:44 AM End of Report [facility] 02/16/2017 23:2 2 EDT 02/17/2017 23:22 EDT us Sophia Edwards MD PATHOLOGY ORDERABLES Final Resu lt [facility] [address] [place] [address] documented in this encounter Visit Diagnoses Not on filedocumented in this encounter Care Teams Title I Assistant Relationship Specialty Start Date End Date Sophia Edwards MD [address] [place] [address] PCP - General 10/22/13 documented as of this encounter
--- OUTSIDE RECORDS SUMMARY | 2024-08-01 16:10 | XMS_ITS | Encounter Summary ---
Author Organization [facility] Address [address] [place] [address] Care Team Providers Care Wet Process Operator Name Role Phone Sophia Edwards MD Primary Care Provider [phone] Encounter Details Date Type Department Care Team (Late st Contact Info) Description 09/01/2020 Lab Requisition [facility] Pathology & Laboratory Medicine - [facility] [address] [place] [address] Sophia Edwards MD [address] [place], [place] [id number] Encounter for other general examination Social History Tobacco Use Types Packs/Day Years [...] Priority Date/Time Associated Diagnosis Comments SURGICAL PATHOLOGY Today 08/31/2020 16 :15 EST Encounter for other general examination documented in this encounter Results * SURGICAL PATHOLOGY (08/31/2020 16:15 EST) Final Diagnosis A. SKIN OF SUPRAPUBIC REGION, SHAVE BIOPSY: - Seborrheic keratosis. 09/02/2020 12:18 EST [facility] Attestation By the signature below, the attending physician certifies that they have 1) personally conducted a gross and/or microscopic examination of the described specimen(s), and/or personally interpreted the results of laboratory testing of the described specimen(s), and 2) personally rendered or confirmed the above diagnosis. 09/02/2020 12:18 [facility] at [address] Microscopic Description The stratum corneum is thickened by compact and basketweave orthokeratosis with formation of horn pseudocysts. The epidermis is acanthotic with formation of broad and anastomosing trabeculae. The trabeculae are composed of basaloid keratinocytes with round uniform nuclei. The keratinocytes have a variable amount of melanin pigment. 09/02/2020 12:18 [facility] Clinical History Flat, slightly irregular, light brown lesion in suprapubic area; approximately 8 mm in diameter, ? keratosis vs. Nevus; lesion was quite superficial 09/02/2020 12:18 [facility] Gross Description A. Received in formalin labelled with proper patient identification (initials L, K) and suprapubic is a barbosa-ahuja skin shave biopsy measuring 0.8 x 0.7 x 0.1 cm. At 1 edge there is a raised plaque measuring 0.6 x 0.6 cm. Inked, trisected and submitted entirely in A1. BRIDGER COOL(ASCP) 09/01/2020 19:41 09/02/2020 12:18 [facility] Performing Lab [facility] 09/02/2020 12:18 [facility] Scanned Images 09/02/2020 12:18 [facility] Tissue TISSUE SPECIMEN FROM SKIN / Unknown 08/31/2020 16:15 EST 09/01/2020 16:24 EST us Sophia Edwards MD PATHOLOGY ORDERABLES Final Resu lt [facility] [address] [place] [address] documented in this encounter Visit Diagnoses Diagnosis Encounter for other general examination documented in this encounter Care Teams Wet Process Operator Relationship Specialty Start Date End Date Sophia Edwards MD [address] [place] [id number] PCP - General 10/22/13 documented as of this encounter
--- OUTSIDE RECORDS SUMMARY | 2024-08-01 16:10 | XMS_ITS | Encounter Summary ---
Author Organization [facility] Address [address] [place] [address] Care Team Providers Care Futures Trader Name Role Phone Sophia Edwards MD Primary Care Provider Encounter Details Date Type Department Care Team (Latest Contact Info) Description 12/27/2023 Travel Social History Tobacco Use Types Packs/Day Years Used Date Smoking Tobacco: Every Day Cigarettes Alcohol Use Standard Drinks/Week Comments Never 0 (1 standard drink = 0.6 oz pur e alcohol) Comments Unknown Sex and Gender Information Value Date Recorded Sex Assigned at Not on file Legal Sex Female 18:24 EST Gender Identity Female 12/28/2023 10:18 EDT Sexual Orientation Not on file documented as of this encounter Functional Status * Are you deaf or do you have serious difficulty hearing? Answer Date of Assessment Author No 12/27/2023 12:15 EDT Manisha Soto RN documented as of this encounter Plan of Treatment Not on file documented as of this encounter Visit Diagnoses Not on filedocumented in this encounter Care Teams Futures Trader Relationship Specialty Start Date End Date Sophia Edwards MD [address] [place] [address] PCP - General 10/22/13 documented as of this encounter
--- OUTSIDE RECORDS SUMMARY | 2024-08-01 16:10 | XMS_ITS | Encounter Summary ---
Author Organization [facility] Address [address] [place] [address] Care Team Providers Care Veterinarian Epidemiologist Name Role Phone Sophia Edwards MD Primary Care Provider [phone] Encounter Details Date Type Department Care Team (Latest Contact Info) Description 02/16/2017 15:28 EDT - 02/16/2017 23:59 EDT Hospital Encounter [facility] - [address] [address] Unknown, Provider, Discharge Disposition: Home or Self [...] Code Departure Means Destination Home or Self Residential documented in this encounter Plan of Treatment Not on file documented as of this encounter Visit Diagnoses Not on filedocumented in this encounter Care Teams Veterinarian Epidemiologist Relationship Specialty Start Date End Date Sophia Edwards MD [address] [place] [address] PCP - General 10/22/13 documented as of this encounter
--- OUTSIDE RECORDS SUMMARY | 2024-08-01 16:10 | XMS_ITS | Encounter Summary ---
Author Organization [facility] Address [address] [place] [address] Care Team Providers Care Front Desk Person Name Role Phone Unavailable Primary Care Provider Unavailabl e Encounter Details Date Type Department Care Team (Late st Contact Info) Description 01/17/2000 Results Only [facility] - Maple conversion [address] [place] [address] Antonio Morrison MD [address] [place] [phone] Social History Tobacco Use Types Packs/Day Years [...] Date/Time Associated Diagnosis Comments SURGICAL PATHOLOGY Routine 01/17/2000 15 :47 EDT documented in this encounter Results * SURGICAL PATHOLOGY (01/17/2000 15:47 EDT) Pathology Report: SURGICAL PATHOLOGY REPORT Reports generated via electronic interface contain original data; however they are lacking the format of the original report. Caution should be taken when reading/interpreting unformatted reports. Name: ? KARON PARRA ? Accession #: ? [id number] ? : ? 1980 (Age: 19) ??F ? Collect Date: ? 01/17/2000 ? Location: ?Receive Date: ? 01/17/2000 ? Provider: RILEY MORRISON MD Copy to: RILEY GOLDSTEIN MD ? Final Pathologic Diagnosis: DIAGNOSIS: ? 1. ??Skin of thigh, right, excisional biopsy: ? - Melanocytic nevus, compound type, with unusual ? architectural features and marked cytologic atypia. ??See ? microscopic and comment. ? - Junctional component extends to margin of excision ? specimen. ? 2. ??Skin of back, mid, excisional biopsy: ? - Melanocytic nevus, compound type, with unusual ? architectural features and marked cytologic atypia. ? - Junctional component extends to margin of excision ? specimen. ? Comment: COMMENT: ? Both biopsies show similar features although the lesion from mid ? back is larger and more cellular. ??Both consist of a compound ? melanocytic proliferation showing architectural disorder of the ? junctional component. ??Further, the melanocytes show a marked ? degree of cytologic atypia. ??The junctional component of both ? lesions extends focally to the margin of the excision specimen. ? Therefore, complete excision is recommended. ??(Dr. Najera)/foster Microscopic Description: MICROSCOPIC: ? Sections of both specimens show similar features although that ? from the mid back is larger. ??Both consist of an excisional ? biopsy of a compound proliferation of melanocytes associated with ? mild epidermal hyperplasia. ??The junctional component consists of ? nests and individual cells. ??The nests are of moderate size but ? vary in shape and spacing. ??Although most are vertically ? oriented, rare nests are horizontally positioned and span rete ? ridges. ??The individual melanocytes are unevenly spaced but ? definitive confluent growth is not identified. ??Rare melanocytes ? are noted above the basal zone but well developed upward ? migration is not present. ??The melanocytes are enlarged and have ? a moderate amount of cytoplasm containing coarse melanin pigment. ? The nuclei show a marked degree of pleomorphism with large ? irregular shapes and discernable nucleoli. ??A rare mitotic ? figure is identified in a junctional nest of the larger lesion. ? The dermal component consists of nests and cords of similar ? melanocytes that have a tendency toward maturation with descent. ? The dermal component is associated with a sparse ? lymphohistiocytic infiltrate. ??There is papillary dermal ? fibroplasia. ??The junctional component extends beyond the dermal ? component forming asymmetric shoulders. ??(Dr. Najera)/foster ?? Document reviewed and electronically signed by: Conversion for GRISEL NAJERA Report ??Date: 01/23/2000 00:00 By the signature above, the attending physician certifies that he/she has personally conducted a gross and/or microscopic examination of the described specimens and rendered or confirmed the above diagnosis. Specimen(s) Received: TISSUE SUBMITTED: ? 1. ??Lesion R thigh ? 2. ??Lesion mid back CLINICAL DATA: ? 1. ??Nevus R thigh, 3 mm; 2. ??Nevus mid back - 7 mm; changing nevi ? R thigh & back Gross Description: GROSS: ? Received in formalin labelled Aida and 1. right thigh ? lesion is a barbosa unoriented 0.5 x 0.2 cm skin ellipse excised to ? a depth of 0.2 cm. ??There is a central brown 0.2 x 0.1 x 0.1 cm ? macule. ??The specimen is inked, serially sectioned and is ? entirely submitted as (A) and (B) with the distal tips submitted ? reverse en face as (B). ? Received in formalin labelled Aida and lesion mid back is a ? barbosa unoriented 1.2 x 0.5 cm skin ellipse excised to a depth of ? 0.7 cm. ??There is a central brown 0.4 x 0.4 x 0.2 cm slightly ? raised papule. ??The specimen is inked, serially sectioned and is ? entirely submitted as (C) and (D) with the distal tips submitted ? reverse en face as (D). ??(Selwyn Toro)/mms ? End of Report [facility] 01/17/2000 15:4 7 EDT 01/17/2000 15:48 EDT us Antonio Morrison MD PATHOLOGY ORDERABLES Final Res ult [facility] [address] [place] [address] documented in this encounter Visit Diagnoses Not on filedocumented in this encounter
--- OUTSIDE RECORDS SUMMARY | 2024-08-01 16:10 | XMS_ITS | Encounter Summary ---
Author Organization [facility] [place] [address] Care Team Providers Care Diesel Engine Ii Pipe Fitter Name Role Phone Sophia Edwards MD Primary Care Provider [phone] Encounter Details Date Type Department Care Team (Late st Contact Info) Description 06/14/2004 Orders Only Dermatology at [place] [address] [facility] [place] [id number] Greg Galaviz MD [address], [place] [address] Social History Tobacco Use Types Packs/Day Years Used Date Smoking Tobacco: Never Assessed Sex and Gender Information Value Date Recorded Sex Assigned at Not on file Gender Identity Not on file Sexual Orientation Not on file documented as of this encounter Plan of Treatment Not on file documented as of this encounter Procedures Procedure Name Priority Date/Time Associated Diagnosis Comments SURGICAL PATHOLOGY REPORT Routine 06/14/2004 8:51 PM EDT documented in this encounter Results * Surgical Pathology Report (06/14/2004 8:51 PM EDT) Surgical Pathology Report [id number] ? Location: The signing pathologist has (i) examined the relevant preparation(s) for the specimen(s) and (ii) rendered or confirmed the diagnosis(es). . ?Pathology Surgical Pathology Final Report Clinical Information Specimen Submitted: A - (L) nasal sidewall, excision Clinical History: Mole; nevus Gross Description Labeled/Fixative : ? Labeled with the patient's name, formalin. Qty/Size/Weight: ?Ellipse, one piece, 0.7 x 0.4 x 0.2 cm. Tissue Description: ?? Ellipse, rubbery, yellow-barbosa skin. Sections/Process ing: ??The specimen is inked and serially sectioned. ??The ?ends are submitted in (1); the remainder of the ?specimen submitted in (2). ??(T2) ??tbb/EJR Microscopic Description Slides reviewed, microscopic description not recorded. Diagnosis Skin, left nasal sidewall, excisional biopsy: ?? Angiofibroma (fibrous papule); multiple levels examined. CR-0 06/15/04 [facility] 06/17/04 Verified by: ? Gail Gonzalez MD ?Dermatopatholo gist ?(Electronic Signature) The attending pathologist whose signature appears on this report has reviewed all diagnostic slides and has edited the gross and/or microscopic portion of the report in rendering the final pathologic diagnosis. HANNA CASTAÑEDA 06/14/2004 8:51 PM EDT Greg Galaviz MD PATHOLOGY/CYTOLOGY O RDERABLES HANNA CASTAÑEDA documented in this encounter Visit Diagnoses Not on filedocumented in this encounter Care Teams Diesel Engine Ii Pipe Fitter Relationship Specialty Start Date End Date Sophia Edwards MD [address] [place] [address] PCP - General 11/06/13 documented as of this encounter
--- OUTSIDE RECORDS SUMMARY | 2024-08-01 16:10 | XMS_ITS | Encounter Summary ---
[place] [address] Care Team Providers Care Neon Sign Maker Name Role Phone Sophia Edwards MD Primary Care Provider [phone] Reason for Visit * Reason Comments Skin Check Encounter Details Date Type Department Care Team (Late st Contact Info) Description 11/06/2013 11:30 AM EST Office Visit Dermatology at [address] [place] [id number] Greg Galaviz MD [address] [facility], [place] [address] Nevus (Primary Dx) Social History Tobacco Use Types Packs/Day Years Used Date Smoking Tobacco: Unknown Sex and Gender Information Value Date Recorded Sex Assigned at Not on file Gender Identity Not on file Sexual Orientation Not on file documented as of this encounter Progress Notes * Greg Galaviz MD - 11/06/2013 12:02 PM EST Problem: Mole check. Karon follows up after last being seen by me in 2003. She has recently noted some new moles developing and recalls that I had removed a couple of atypical nevi in the past for her. She is referred by Dr. Rollins for repeat assessment of her multiple nevi. She states that she has noted some growing and changing nevi as well. Physical examination reveals a pleasant, 33-year-old woman who has numerous melanocytic nevi, primarily junctional, of the torso, upper chest, and back. She has also a number on the lateral temples. These are in the 2- to 4-mm diameter range, and there are several subsets of nevi; some are dark brown to black, and others are rolling mill operator helper brown. She also has some Deven-type nevi, which are about 4 mm and 5 mm in diameter with rolling mill operator helper central pigmentation and darker periphery. She has very few compound versus intradermal nevi, and these are also in the 2- to 4-mm diameter range. Fortunately, examination of all these and exam of the head and neck, chest, back, hands, arms, forearms, thighs, and calves is benign. She has three new junctional melanocytic nevi, about 3 mm in diameter, on the left instep of the sole of her foot. The patient has a well-healing shave biopsy site on the left submandibular jawline where Dr. Edwards recently removed a pedunculated, irritated nevus, which upon biopsy, by patient report, was benign. Assessment and Plan: Benign melanocytic nevi, multiple. a. Patient reassured about her signature nevi and these various subtypes and different appearances of her nevi. b. I explained that both genetics and sun exposure are giving rise to new nevi as she is getting a little bit older. c. I would recommend that I see her on an intermittent basis, perhaps every two or three years. d. I recommended [id number] reminder in three years for repeat check. COPY: Carly Rollins M.D. Sophia Edwards M.D. documented in this encounter Plan of Treatment Not on file documented as of this encounter Visit Diagnoses Diagnosis Nevus- Primary Benign neoplasm of skin, site unspecified documented in this encounter Care Teams Neon Sign Maker Relationship Specialty Start Date End Date Sophia Edwards MD [address] [place] [address] PCP - General 11/06/13 documented as of this encounter
--- OUTSIDE RECORDS SUMMARY | 2024-08-01 16:10 | XMS_ITS | Encounter Summary ---
Author Organization [facility] Address [address] [place] [address] Care Team Providers Care Lead Cytogenetic Technologist Name Role Phone Unavailable Primary Care Provider Unavailabl e Encounter Details Date Type Department Care Team (Late st Contact Info) Description 03/15/2000 Results Only [facility] - Maple conversion [address] [place] [address] Migdalia Aleman MD [address] [place] [address] [address] [place], [place] [id number] Social History Tobacco Use Types Packs/Day Years [...] Procedure Name Priority Date/Time Associated Diagnosis Comments CYTOPATHOLOGY Routine 03/15/2000 0:00 EDT documented in this encounter Results * CYTOPATHOLOGY (03/15/2000 0:00 EDT) Pathology Report: CYTOPATHOLOGY REPORT Reports generated via electronic interface contain original data; however they are lacking the format of the original report. Caution should be taken when reading/interpreti ng unformatted reports. Name: ? KARON PARRA ? Accession #: ? [id number] : ? 1980 (Age: 20) ??F ?Collect Date: ? 03/15/2000 Location: ? [facility] ? Receive Date: ? 03/19/2000 Provider: ?MIGDALIA ALEMAN MD Copy to: ? Specimen/Source: ?Conventional Pap Test, (2 or more slides) Last Menstrual Period: ? 02/27/00 Hormonal/Contracep tive Status: ? Yes ? SPECIMEN ADEQUACY ? Satisfactory for evaluation but limited by obscuring blood. Satisfactory for evaluation but limited by scant squamous epithelial component. GENERAL CATEGORIZATION ? Within Normal Limits ? Document reviewed and electronically signed by: ? AUGUSTA Tinoco(ASCP) ? Report Date: ??03/22/2000 10:31 End of Report SCOTT RODRIGUEZ 03/15/2000 03/19/2000 us Migdalia Aleman MD PATHOLOGY ORDERABLES Final Resul t [facility] [address] [place] [address] documented in this encounter Visit Diagnoses Not on filedocumented in this encounter
--- OUTSIDE RECORDS SUMMARY | 2024-08-01 16:10 | XMS_ITS | Encounter Summary ---
Author Organization [facility] Address [address] [place] [address] Care Team Providers Care Personal Property Appraiser Name Role Phone Sophia Edwards MD Primary Care Provider [phone] Encounter Details Date Type Department Care Team (Latest Contact Info) Description 03/30/2014 7:46 EDT - 03/30/2014 23:59 EDT Hospital Encounter [address] [address] Unknown, Provider, Discharge Disposition: Home or Self [...] Code Departure Means Destination Home or Self Intermediate documented in this encounter Plan of Treatment Not on file documented as of this encounter Visit Diagnoses Not on filedocumented in this encounter Care Teams Personal Property Appraiser Relationship Specialty Start Date End Date Sophia Edwards MD [address] [place] [address] PCP - General 10/22/13 documented as of this encounter
[2024-08-05 11:16] LABS: Fentanyl Scr w/Rfx Confirm Positive ng/mL (<1)
[2024-08-05 11:59] LABS: Fentanyl Confirmation >40 ng/mL (<2); Norfentanyl Confirmation >200 ng/mL (<10)
[2024-08-06 13:30] LABS: Benzoylecgonine 2051 ng/mL (Cutoff: 50); Cocaine Negative ng/mL (Cutoff: 50); Cocaine Interpretation Positive.
== END 2024-08-01 16:04 | disposition home or self-care (01) ==
LOC: NCHCN 16:03
PROVIDERS: PCP Family Medicine; Visit Provider Family Medicine
DX: Z51.89 Encounter for other specified aftercare (principal)
CPT/HCPCS: 80307; 80354; 80353

== ENCOUNTER 2024-08-22 15:31 | Outpatient (REF) | payer MEDICAID, SELFPAY ==
[2024-08-22 19:02] LABS: *AMPHETAMINES SCREEN URINE Negative (Negative); *BARBITURATES SCREEN URINE Negative (Negative); *BENZODIAZEPINES SCREEN URINE Negative (Negative); Cannabinoids THC Negative (Negative); Cocaine Screen,Urine Negative (Negative); METHADONE URINE SCREEN Negative (Negative); OPIATES URINE SCREEN Negative (Negative)
[2024-08-22 19:08] LABS: Tricyclic Antidepressants Negative (Negative)
== END 2024-08-22 15:32 | disposition home or self-care (01) ==
LOC: NCHCN 15:31
PROVIDERS: PCP Family Medicine; Visit Provider Family Medicine
DX: Z51.89 Encounter for other specified aftercare (principal); F19.10 Other psychoactive substance abuse, uncomplicated
CPT/HCPCS: 80307

== ENCOUNTER 2024-09-12 12:59 | Outpatient (REF) | payer MEDICAID, SELFPAY ==
[2024-09-19 08:50] LABS: Amphetamine 2516 ng/mL (Cutoff: 25); Amphetamines Interpretation Positive.; MDA (Ecstasy Metabolite) Negative ng/mL (Cutoff: 25); MDMA (Ecstasy) Negative ng/mL (Cutoff: 25); Methamphetamine Negative ng/mL (Cutoff: 25); Phentermine Negative ng/mL (Cutoff: 25); Pseudoephedrine/Ephedrine Negative ng/mL (Cutoff: 25)
== END 2024-09-12 13:00 | disposition home or self-care (01) ==
LOC: NCHCN 12:59
PROVIDERS: PCP Family Medicine; Visit Provider Family Medicine
DX: Z51.81 Encounter for therapeutic drug level monitoring (principal)
CPT/HCPCS: 80324

== ENCOUNTER 2024-10-10 15:48 | Outpatient (REF) | payer MEDICAID, SELFPAY | END 2024-10-10 15:49 | disposition home or self-care (01) | LOC: NCHCN 15:48 | PROVIDERS: PCP Family Medicine; Visit Provider Family Medicine | DX: Z51.81 Encounter for therapeutic drug level monitoring (principal) | CPT/HCPCS: 87077; 87086; 87186 ==

== ENCOUNTER 2024-12-05 22:50 | Outpatient (REF) | payer MEDICAID, SELFPAY ==
[2024-12-05 19:36] LABS: Bilirubin Negative (Negative); Blood Trace-intact (Negative); Clarity Clear (Clear); Glucose Negative (Negative); Ketones Negative (Negative); Leukocyte Esterase Negative (Negative); Nitrite Negative (Negative); Urobilinogen 0.2 mg/dL (Up to 0.2); pH 6.5 (5-8)
[2024-12-05 19:42] LABS: Bacteria Negative HPF (Negative); C & S Indicated? No; Crystals Negative HPF (Negative); Epithelial Cells Moderate HPF (Negative); Mucus Negative (Negative); RBC 0-2 HPF (0-2); WBC Negative HPF (0-5)
== END 2024-12-05 22:51 | disposition home or self-care (01) ==
LOC: NCHCN 22:50
PROVIDERS: PCP Family Medicine; Visit Provider Family Medicine
DX: Z87.440 Personal history of urinary (tract) infections (principal); R82.89 Other abnormal findings on cytological and histological examination of urine; B96.29 Other Escherichia coli [E. coli] as the cause of diseases classified elsewhere
CPT/HCPCS: 81003; 81015

== ENCOUNTER 2024-12-26 22:03 | Outpatient (REF) | payer MEDICAID, SELFPAY | END 2024-12-26 22:04 | disposition home or self-care (01) | LOC: NCHCN 22:03 | PROVIDERS: PCP Family Medicine; Visit Provider Family Medicine | DX: N39.0 Urinary tract infection, site not specified (principal); R82.89 Other abnormal findings on cytological and histological examination of urine | CPT/HCPCS: 87086 ==

== ENCOUNTER 2025-01-02 09:09 | Emergency (ER) | payer MEDICAID, SELFPAY ==
[2025-01-02 09:20] VITALS: BP 97/67; PULSE 60; RESP 16; TEMP 36.6; O2SAT 95
--- NOTE | 2025-01-02 09:25 | W.ED.GENAD ---
Discharge Plan Disposition Patient Disposition: Eloped Condition: Stable Discharge Details Clinical Impression: Closed fracture of coracoid process of right scapula Primary Care Provider: Sophia Edwards V ED Provider: Juancho Zaidi Home Meds and New Rx's Prescriptions: Continued cephalexin 500 mg capsule 500 mg PO BID Qty: 14 0RF levonorgestrel-ethinyl estrad [Introvale] 1 EACH tablets,dose pack,3 month 1 ea PO DAILY clonidine HCl 0.1 MG tablet extended release 12 hr 0.1 mg PO .q8 hr PRN gabapentin 600 mg tablet 600 mg PO BID Discharge Instructions Instructions: Shoulder Blade Fracture, Oxycodone Additional Instructions: You were seen in the emergency department for the fracture of your coracoid process of your right scapula. I discussed this case with orthopedic Dr. Cortes on-call and he recommended a sling, rest, ice, compress and elevate often over the next couple weeks and they will follow-up with you for an office visit. Consider alternating NSAID therapy, I have provided some to go opioid analgesics for breakthrough pain, it will be much more comfortable to sleep in a recliner chair, I have provided you a work note for light duty with no use of the right arm until you are improved. Please return for any signs of neurovascular compromise to the right arm, perform gentle range of motion exercises but be careful bending at the elbow. Stand Alone Forms: Work Release Referrals: [facility] [Provider Group] Sophia Edwards MD [Primary Care Provider] - Discharge Data Discharge Date/Time-TO BE ENTERED AT DEPARTURE: 01/02/25 12:45 HPI General Date/Time Provider Initiated Documentation: 01/02/25 09:24. HPI Narrative: 44 year-old female presents to ED today by POV/ambulating with a chief complaint of R shoulder pain from falling out of bed this morning. Quality described as very tender to deltoid area of R shoulder- patient is R-hand dominant, no radiation to bruising, deformity, squared off appearance, numbness/weakness to hand, neck pain, headstrike or LOC. Severity is described as severe. Palliating factors include nothing attempted. Provoking factors include nothing specific. Patient not anticoagulated. Related Data Home Medications ?Medication ?Instructions ?Recorded ?Confirmed clonidine HCl 0.1 mg 0.1 mg PO .q8 hr PRN 04/07/16 01/02/25 tablet,extended release,12 hr levonorgestrel 0.15 mg-ethinyl 1 ea PO DAILY 04/07/16 01/02/25 estradiol 30 mcg tablets,3 mos pack(91) (Introvale) gabapentin 600 mg tablet 600 mg PO BID 12/25/23 01/02/25 cephalexin 500 mg capsule 500 mg PO BID wound infection #14 08/22/24 01/02/25 caps Previous Rx's ?Medication ?Instructions ?Recorded cephalexin 500 mg capsule 500 mg PO BID wound infection #14 08/22/24 caps Allergies Allergy/AdvReac Type Severity Reaction Status Date / Time diphenhydramine HCl (From Allergy Severe Anaphylaxsi Verified 01/02/25 14:14 Benadryl) s duloxetine HCl (From Allergy Intermediate hallucination, Verified 01/02/25 14:14 Cymbalta) fever, stomach pain, sweating,vomitting eszopiclone (From Lunesta) AdvReac Unknown airway Verified 01/02/25 14:14 morphine sulfate (From MS AdvReac Unknown Agitation Verified 01/02/25 14:14 Contin) trazodone AdvReac Unknown Agitation Verified 01/02/25 14:14 zolpidem tartrate (From AdvReac Unknown Dizziness/L Verified 01/02/25 14:14 Ambien) ighthead General Stated Complaint: Orthopedic SAMANTHA: 4 Review of Systems All systems reviewed & are unremarkable except as noted in HPI and below Exam Narrative Exam Narrative: GENERAL APPEARANCE: Well-nourished, non-toxic, awake and alert, atraumatic, no acute distress. SKIN: Warm, pink, dry, intact, without rashes/lesions/ulcerations. HEAD: Normocephalic, atraumatic, normal hair distribution for gender/age. EYES: Normal conjunctiva, no exudates on lids/lashes. ENT: Nares patent, no circumoral cyanosis, no facial swelling NECK: Supple, trachea midline, painless cervical ROM. LUNGS/CHEST: Lungs CTA bilaterally, non-labored respirations, normal A/P diameter, symmetrical expansion, no chest wall deformity HEART (CV/PV): Regular rate and rhythm without murmur, no peripheral edema, no JVD. ABDOMEN: Soft, non-distended, no guarding. MSK: Normal ROM, no swelling/deformity to bilateral UEs or LEs, moving all extremities without weakness, no cyanosis, spine midline without tenderness, normal curvature. NEURO: Mental Status AAOx4 - alert to person, place, time, events No facial droop, no forehead involvement. Motor: No focal weakness - strength 5/5 in bilateral UEs and LEs, proximal and distal, symmetric. Sensory: sensation intact to light touch globally. Gait normal: patient ambulated without ataxia into ED room. PSYCH: euthymic, cooperative, pleasant, appropriate speech Course Vital Signs Vital signs: Vital Signs Temperature 36.6 C 01/02/25 09:20 Pulse 60 01/02/25 09:20 Respiratory Rate 16 01/02/25 09:20 Blood Pressure 97/67 L 01/02/25 09:20 Pulse Oximetry 95 01/02/25 09:20 Temperature 36.6 C 01/02/25 09:20 Temperature Source Oral 01/02/25 09:20 Pulse 60 01/02/25 09:20 Respiratory Rate 16 01/02/25 09:20 Blood Pressure 97/67 L 01/02/25 09:20 Pulse Oximetry 95 01/02/25 09:20 Medical Decision Making This dictation utilizes [id number] dictation software and may contain unedited grammatical errors. 44 year-old female presents to ED today by POV/ambulating with a chief complaint of R shoulder pain from falling out of bed this morning. Quality described as very tender to deltoid area of R shoulder- patient is R-hand dominant, no radiation to bruising, deformity, squared off appearance, numbness/weakness to hand, neck pain, headstrike or LOC. Severity is described as severe. Palliating factors include nothing attempted. Provoking factors include nothing specific. Patients' medical history: History of substance abuse, peripheral neuropathy, anemia. Family and social history: Noncontributory. Pertinent exam findings / vital signs include tenderness diffusely around the right deltoid without crepitus, no ecchymosis, clavicle stable, question prominence of distal clavicle, patient unable to perform special tests of the shoulder due to pain, no midline cervical vertebral tenderness, right radial pulse 2+, channeling machine runner strength 5/5, sensation intact. Differential / pathologies of concern include fracture, rotator cuff arthropathy, sprain/strain, AC separation. Diagnostic studies of: -XR R shoulder, radiologist requested additional view, question coracoid process fracture CT performed. -CT shows a small fracture at the base of the coracoid process Interventions of: -Discussed with orthopedics, recommend sling and follow-up in office. ED Course/Assessment/Plan: 44-year-old female fell out of bed this morning having right shoulder pain, CT shows a fracture of the coracoid process of the right scapula, patient was already in a sling was given simple analgesics p.o. here in the department including Tylenol, Toradol, Lidoderm patch and 5 oxycodone to go, patient eloped for a time without telling on prior to CT results but the entire workup had been completed by this point, she did show back up later in the evening and I counseled her on these findings, see progress note for her second visit, she denied any new trauma since leaving, patient can follow-up with orthopedics, strict return criteria for any signs of neurovascular compromise. Findings not consistent with unstable fracture, neurovascular compromise. Disposition of Closed Fracture of Coracoid Process of Right Scapula. Patient verbalized understanding of the plan and return to ED criteria and engaged in shared decision making. Medical Records Medical records reviewed: Yes I reviewed the patient's medical records. Imaging Data Radiologic Study: Attestation: I personally reviewed and interpreted this imaging study as follows: Imaging: X-Ray Radiologist's impression: EXAM: XR SHOULDER RT COMPLETE 2+V CLINICAL HISTORY: R shoulder pain. TECHNIQUE: 2D digital imaging was performed. COMPARISON: CT CT CHEST/ABD/PEL WO from 07/31/2022 FINDINGS: Four views No evidence of acute fracture or dislocation humeral head-glenohumeral joint. There are no calcifications in the subacromial space. There is, however, abnormality in the a chromium which has appearance of a fracture versus os acromial. There is no dislocation of the AC joint. The coracoid process is intact. Bone density normal. No osseous lesions. IMPRESSION: Possible fracture the a chromium versus os acromial. Recommend additional axial view Radiologic Study #2: Attestation: I personally reviewed and interpreted this imaging study as follows: Imaging: X-Ray Radiologist's impression: EXAM: XR SHOULDER RT 1V CLINICAL HISTORY: radiologist requests additional axial view. TECHNIQUE: 2D digital imaging was performed. COMPARISON: CR XR SHOULDER RT COMPLETE 2+V from 01/02/2025 FINDINGS: Single axial image Does not appear to be an obvious fracture on this axial image. However, the findings on the other views somewhat convincing. Therefore, if there is pain over the acromium then recommend CT scan. IMPRESSION: As above. Radiologic Study #3: Attestation: I personally reviewed and interpreted this imaging study as follows: Imaging: CT Scan Radiologist's impression: EXAM: CT UPPER EXTREMITY RT WO CLINICAL HISTORY: question shoulder fracture TECHNIQUE: Imaging Protocol: Axial computed tomography images with coronal and sagittal reformatted images were created and reviewed. CONTRAST MATERIAL: Intravenous: Omnipaque 350 Contrast volume:structured data in ml Contrast route:IV - Oral: yes / no COMPARISON: CR XR SHOULDER RT COMPLETE 2+V from 01/02/2025 CR XR SHOULDER RT 1V from 01/02/2025 FINDINGS: OSSEOUS: There is a only displaced fracture of the base of the coracoid process near junction with the superior osseous glenoid fossa. Humeral head and neck are intact as is the greater tuberosity. There is no dislocation glenohumeral joint. The clavicle is intact. The AC joint is intact. However, there is subtle suggestion of a nondisplaced fracture of the chromium although there is a possibly that this is a nutrient artery canal. IMPRESSION: Mildly displaced fracture of the base of the coracoid process. Subtle fracture versus os acromial in the acromium. Quality:SDOH Health Related Social Needs: No Data to Display PFSH All Active Problems (Updated 01/02/25 @ 14:30 by BRIDGER Pedroza) Closed fracture of coracoid process of right scapula (Acute) Spondylosis without myelopathy or radiculopathy, lumbar region (Chronic) Medical History (Updated 01/02/25 @ 14:30 by BRIDGER Pedroza) IBS (irritable bowel syndrome) Vaginal irritation Wart Mold exposure Hx of substance abuse HSV infection Recurrent respiratory infection Weight loss Vertigo Cyclical vomiting Congenital finger anomaly Skin lesion Peripheral neuropathy History of pneumonia Chronic fatigue syndrome Attention deficit disorder (ADD) without hyperactivity Depression Back pain Anxiety Pernicious anemia Anemia Mood disorder Sleep disturbance Muscle spasm Scoliosis Low back pain Post traumatic stress disorder Psychogenic dyspareunia Onychomycosis of toenail Social History Smoking/Tobacco Use Status: Current every day Tobacco Type: cigarettes Smoking packs per day: 1 Smoking cigarettes per day: 20.0 Years smoked: 20 Smoking pack-years: 20.00 Tobacco: How many years used: 20 Smoking risk assessment performed?: Yes Alcohol Intake: never Drug use: Daily Substance use type: opiates and IV drugs Housing: house Do you feel safe at home: No Do you feel safe in your relationship?: Yes
--- NOTE | 2025-01-02 09:44 | DI.RAD_ITS ---
Exam(s) XR SHOULDER RT COMPLETE 2+V EXAM: XR SHOULDER RT COMPLETE 2+V CLINICAL HISTORY: R shoulder pain. TECHNIQUE: 2D digital imaging was performed. COMPARISON: CT CT CHEST/ABD/PEL WO from 07/31/2022 FINDINGS: Four views No evidence of acute fracture or dislocation humeral head-glenohumeral joint. There are no calcifica tions in the subacromial space. There is, however, abnormality in the a chromium which has appearance of a fracture versus os acromia l. There is no dislocation of the AC joint. The coracoid process is intact. Bone density normal. No osseous lesions. IMPRESSION: Possible fracture the a chromium versus os acromial. Recommend additional axial view DATA REPOSITORY: RADIATION DOSE DELIVERED:
[2025-01-02] MEDS: Acetaminophen 500 MG TAB 1000 MG PO (10:30)
[2025-01-02] MEDS: Lidocaine 5% Patch 1 PATCH TP (10:31)
[2025-01-02] MEDS: Ketorolac 30 MG/ML VIAL IM (10:31)
--- NOTE | 2025-01-02 11:02 | DI.RAD_ITS ---
Exam(s) XR SHOULDER RT 1V EXAM: XR SHOULDER RT 1V CLINICAL HISTORY: radiologist requests additional axial view. TECHNIQUE: 2D digital imaging was performed. COMPARISON: CR XR SHOULDER RT COMPLETE 2+V from 01/02/2025 FINDINGS: Single axial image Does not appear to be an obvious fracture on this axial image. However, the findings on the other vi ews somewhat convincing. Therefore, if there is pain over the acromium then recommend CT scan. IMPRESSION: As above. DATA REPOSITORY: RADIATION DOSE DELIVERED:
--- NOTE | 2025-01-02 11:15 | DI.CT_ITS ---
Exam(s) CT UPPER EXTREMITY RT WO EXAM: CT UPPER EXTREMITY RT WO CLINICAL HISTORY: question shoulder fracture TECHNIQUE: Imaging Protocol: Axial computed tomography images with coronal and sagittal reformatted images were created and reviewed. CONTRAST MATERIAL: Intravenous: Omnipaque 350 Contrast volume:structured data in ml Contrast route:I V - Oral: yes / no COMPARISON: CR XR SHOULDER RT COMPLETE 2+V from 01/02/2025 CR XR SHOULDER RT 1V from 01/02/2025 FINDINGS: OSSEOUS: There is a only displaced fracture of the base of the coracoid process near junction with the superio r osseous glenoid fossa. Humeral head and neck are intact as is the greater tuberosity. There is no dislocation glenohumeral joint. The clavicle is intact. The AC joint is intact. However, there is subtle suggestion of a no ndisplaced fracture of the chromium although there is a possibly that this is a nutrient artery canal . IMPRESSION: Mildly displaced fracture of the base of the coracoid process. Subtle fracture versus os acromial in the acromium. Findings called to ER provider 01/02/2025 at 1 p.m. RADIATION DOSE DELIVERED: 95.13mGy.cm Total DLP DATA REPOSITORY: All CT scans at this facility are submitted to the National Radiology Data Registry (NRDR) Dose Index Registry (DIR) with the [employer] (ACR). RADIATION OPTIMIZATION: All CT scans at this facility use at least one of these dose optimization te chniques: automated exposure control; mA and/or kV adjustment per patient size (includes targeted exa ms where dose is matched to clinical indication); or iterative reconstruction.
--- NOTE | 2025-01-03 08:19 | NUR.NOTE ---
Access chart to get the discharge diagnosis for [facility] billing requisition. Nursing Note:
== END 2025-01-02 12:45 | disposition left against medical advice (07) ==
PROVIDERS: Emergency Provider Physician Assistant; PCP Family Medicine
DX: S42.131A Displaced fracture of coracoid process, right shoulder, initial encounter for closed fracture (principal); W06.XXXA Fall from bed, initial encounter; Y93.89 Activity, other specified; Z53.29 Procedure and treatment not carried out because of patient's decision for other reasons
CPT/HCPCS: 96372; 99285; 73020; 73030; 73200; 99284; J1885

== ENCOUNTER 2025-01-02 14:00 | Emergency (ER) | payer MEDICAID, SELFPAY ==
[2025-01-02 14:09] VITALS: BP 80/51; PULSE 69; RESP 16; TEMP 36.7; O2SAT 96
--- NOTE | 2025-01-02 14:34 | W.EDPROG ---
Date of service: 01/02/25 Time of Service: 14:35 Medical Decision Making 44-year-old female check back in for a nondisplaced coracoid process fracture, she was already in definitive treatment of sling prior to her Eloping, and already arranged outpatient follow-up for her, used her prior discharge instructions to provide her with for this recheck visit as they were done and she merely left without paperwork, she is neurovascularly intact it is unknown why she eloped for 90 minutes and then came back- no new trauma since her prior visit. No acute interventions needed, no changes needed, Dr. Cortes is aware of her case. Medical Records Medical records reviewed: Yes I reviewed the patient's medical records. Quality:SDAL Health Related Social Needs: No Data to Display Discharge Plan Disposition Patient Disposition: Home Condition: Stable Discharge Details Clinical Impression: Closed fracture of coracoid process of right scapula Primary Care Provider: Sophia Edwards V ED Provider: Juancho Zaidi Home Meds and New Rx's Prescriptions: No Action cephalexin 500 mg capsule 500 mg PO BID Qty: 14 0RF levonorgestrel-ethinyl estrad [Introvale] 1 EACH tablets,dose pack,3 month 1 ea PO DAILY clonidine HCl 0.1 MG tablet extended release 12 hr 0.1 mg PO .q8 hr PRN gabapentin 600 mg tablet 600 mg PO BID Discharge Instructions Additional Instructions: See her prior note today for discharge instructions Discharge Data Discharge Date/Time-TO BE ENTERED AT DEPARTURE: 01/02/25 15:08
[2025-01-02 15:02] VITALS: BP 90/60; PULSE 64; RESP 16; TEMP 36.7
[2025-01-02] MEDS: oxyCODONE 5 MG TAB 25 MG PO (15:08)
== END 2025-01-02 15:08 | disposition home or self-care (01) ==
PROVIDERS: Emergency Provider Physician Assistant; PCP Family Medicine
DX: S42.131A Displaced fracture of coracoid process, right shoulder, initial encounter for closed fracture (principal); W06.XXXA Fall from bed, initial encounter; Y93.89 Activity, other specified
CPT/HCPCS: 00123; 99282

== ENCOUNTER 2025-01-07 20:26 | Emergency (ER) | payer MEDICAID, SELFPAY ==
[2025-01-07 20:29] VITALS: BP 142/73; PULSE 53; RESP 20; TEMP 36.9; O2SAT 99
[2025-01-07 20:32] VITALS: BP 142/73; PULSE 53; RESP 20; TEMP 36.9; O2SAT 99
--- NOTE | 2025-01-07 20:45 | RT.EKG_ITS ---
APPROVED REPORT Exam: Resting ECG Reason for Exam: SANCHEZ Patient Location: E HR:48 bpm ECG Measurements Heart Rate 48 AXIS VT 173 P 51 QRSd 90 QRS 89 QT 438 T 69 QTc 393 Conclusion Sinus bradycardia...rate< 60 Anteroseptal infarct, age indeterminate...Q >35mS, T neg, V1-V2 ST elevation, consider inferior injury...ST >0.08mV, II III aVF Sinus bradycardia. When compared to prior 12/13/21 decreased HR is noted. WD
--- NOTE | 2025-01-07 20:49 | W.ED.GENAD ---
Discharge Plan Disposition Patient Disposition: Home Condition: Stable Discharge Details Clinical Impression: Migraine, Brain concussion Primary Care Provider: Sophia Edwards V ED Provider: Mandy Chamberlain Home Meds and New Rx's Prescriptions: New btxsgttnwl-rwoidkdufikhe-knjw [Fioricet] 50-300-40 mg capsule 1 cap PO Q8H PRNQty: 10 0RF No Action cephalexin 500 mg capsule 500 mg PO BID Qty: 14 0RF levonorgestrel-ethinyl estrad [Introvale] 1 EACH tablets,dose pack,3 month 1 ea PO DAILY clonidine HCl 0.1 MG tablet extended release 12 hr 0.1 mg PO .q8 hr PRN gabapentin 600 mg tablet 600 mg PO BID Discharge Instructions Instructions: Head injury in adults, Migraine in adults, Headache, Adult ED Referrals: Sophia Edwards MD [Primary Care Provider] - 3 days Discharge Data Discharge Physician: Mandy Chamberlain [facility] General Date/Time Provider Initiated Documentation: 01/07/25 20:28. HPI Narrative: 44-year-old female with history of migraines presents for evaluation of headache. She states that this headache is different than her normal migraines. It has been present for the last several days. It comes on and causes intense pain in the front of her head. She feels like she gets a fever when it comes on. It has been intermittent in nature. She denies any blurry vision or double vision. No neck or back pain. She states that symptoms have been present since she fell out of bed recently. She broke her shoulder during that fall. She did not believe that she had hit her head that much during the fall. She is not on any blood thinners. She denies any numbness or tingling in her extremities. No weakness in her extremities. She does not take migraine medications. She does have some photophobia. No phonophobia. She did have an episode of vomiting with a headache yesterday. No vomiting today. Related Data Home Medications ?Medication ?Instructions ?Recorded ?Confirmed clonidine HCl 0.1 mg 0.1 mg PO .q8 hr PRN 04/07/16 01/07/25 tablet,extended release,12 hr levonorgestrel 0.15 mg-ethinyl 1 ea PO DAILY 04/07/16 01/07/25 estradiol 30 mcg tablets,3 mos pack(91) (Introvale) gabapentin 600 mg tablet 600 mg PO BID 12/25/23 01/07/25 cephalexin 500 mg capsule 500 mg PO BID wound infection #14 08/22/24 01/07/25 caps xorzliffkx-jajolgvjgmjkv-svkdahyy 1 cap PO Q8H PRN #10 caps 01/07/25 50 mg-300 mg-40 mg capsule (Fioricet) Previous Rx's ?Medication ?Instructions ?Recorded cephalexin 500 mg capsule 500 mg PO BID wound infection #14 08/22/24 caps fraajswpue-bnrzdupsruugx-hweccuhf 1 cap PO Q8H PRN #10 caps 01/07/25 50 mg-300 mg-40 mg capsule (Fioricet) Allergies Allergy/AdvReac Type Severity Reaction Status Date / Time diphenhydramine HCl (From Allergy Severe Anaphylaxsi Verified 01/07/25 20:34 Benadryl) s duloxetine HCl (From Allergy Intermediate hallucination, Verified 01/07/25 20:34 Cymbalta) fever, stomach pain, sweating,vomitting eszopiclone (From Lunesta) AdvReac Unknown airway Verified 01/07/25 20:34 morphine sulfate (From MS AdvReac Unknown Agitation Verified 01/07/25 20:34 Contin) trazodone AdvReac Unknown Agitation Verified 01/07/25 20:34 zolpidem tartrate (From AdvReac Unknown Dizziness/L Verified 01/07/25 20:34 Ambien) ighthead General Stated Complaint: Headache SAMANTHA: 3 Review of Systems Narrative: Remainder of review of systems otherwise negative except for as noted in the HPI x 10. Exam Narrative Exam Narrative: General: non-toxic, no respiratory distress, comfortable HEENT: normocephalic, atraumatic, lids and lashes normal, PERRL, EOMI, anicteric sclera, no conjunctival injection, moist oral mucosa Card: regular rate and rhythm, S1S2, no murmurs, rubs, or gallops Lungs: good air entry, clear to auscultation bilaterally. no wheezes, rales, rhonchi, or retractions Abd: soft, non-tender, non-distended, normal bowel sounds, no rebound or guarding, no peritoneal signs Musculoskeletal: full range of motion of arms and legs, no tenderness to palpation. no clubbing, cyanosis, or edema Neurologic: GSC 15, CN 2-12 intact bilaterally, speech normal, strength normal, sensation intact distally in all four extremities, gait normal, 2+ biceps tendon reflexes, normal finger to nose, normal rapid alternating movements, no pronator drift Psych: alert and oriented Skin: no petechiae, no lesions, warm and dry Course Vital Signs Vital signs: Vital Signs Temperature 36.9 C 01/07/25 20:29 Pulse 53 L 01/07/25 20:29 Respiratory Rate 20 01/07/25 20:29 Blood Pressure 142/73 H 01/07/25 20:29 Pulse Oximetry 99 01/07/25 20:29 Temperature 36.9 C 01/07/25 20:32 Pulse 53 L 01/07/25 20:32 Respiratory Rate 20 01/07/25 20:32 Blood Pressure 142/73 H 01/07/25 20:32 Blood Pressure Position Sitting 01/07/25 20:32 Pulse Oximetry 99 01/07/25 20:32 Oxygen Delivery Method Room Air 01/07/25 20:32 Oxygen Flow Rate 0 01/07/25 20:32 Medical Decision Making 44-year-old female with history of migraines presents for evaluation of headache. Headache did start after a fall with likely head injury. At time my evaluation she is neurologically intact. NIH stroke score equals 0. No meningeal signs. Will check CT head and neck secondary to the trauma. Will treat with IV fluids and droperidol. Patient required a second dose of droperidol here with a dose of Ativan. She was able to rest comfortably. CT head and cervical spine are negative for any findings. Patient is comfortable discharge home. She is given a short prescription for Fioricet. We discussed that she may have a mild concussion which is adding to her headache and migraines. She does understand indications to return. Quality:SDOH Health Related Social Needs: No Data to Display PFSH All Active Problems (Updated 01/07/25 @ 22:57 by Mandy Chamberlain MD) Brain concussion (Acute) Migraine (Chronic) Closed fracture of coracoid process of right scapula (Acute) Spondylosis without myelopathy or radiculopathy, lumbar region (Chronic) Medical History (Updated 01/07/25 @ 22:57 by Mandy Chamberlain MD) IBS (irritable bowel syndrome) Vaginal irritation Wart Mold exposure Hx of substance abuse HSV infection Recurrent respiratory infection Weight loss Vertigo Cyclical vomiting Congenital finger anomaly Skin lesion Peripheral neuropathy History of pneumonia Chronic fatigue syndrome Attention deficit disorder (ADD) without hyperactivity Depression Back pain Anxiety Pernicious anemia Anemia Mood disorder Sleep disturbance Muscle spasm Scoliosis Low back pain Post traumatic stress disorder Psychogenic dyspareunia Onychomycosis of toenail Social History Smoking/Tobacco Use Status: Current every day Tobacco Type: cigarettes Smoking packs per day: 1 Smoking cigarettes per day: 20.0 Years smoked: 20 Smoking pack-years: 20.00 Tobacco: How many years used: 20 Smoking risk assessment performed?: Yes Alcohol Intake: never Drug use: Daily Substance use type: opiates and IV drugs Housing: house Do you feel safe at home: No Do you feel safe in your relationship?: Yes
[2025-01-07] MEDS: Droperidol 5 MG/2 ML VIAL 1.25 MG IVP (21:08)
[2025-01-07] MEDS: Normal Saline 1,000 ML 1000 ML IV (21:08)
[2025-01-07 21:17] LABS: Abs Immature Grans 0.03 10^3/uL (0.0-0.06); Absolute Basophil Count 0.04 10^3/uL (0.0-0.2); Absolute Eosinophil Count 0.11 10^3/uL (0.0-0.7); Absolute Lymphocyte Count 2.07 10^3/uL (1.2-3.4); Absolute Monocyte Count 0.41 10^3/uL (0.1-0.8); Absolute Neutrophil Count 4.56 10^3/uL (1.2-6.7); Basophils % 0.6 %; Eosinophils % 1.5 %; HCT 37.1 % (36.0-46.0); HGB 12.3 g/dL (11.2-15.7); Immature Grans % 0.4 %; Lymphocytes % 28.7 %; MCH 30.8 pg (27.0-33.0); MCHC 33.2 % (32.0-36.0); MCV 93 fL (80-95); MPV 9.2 fL (8.0-11.0); Monocytes % 5.7 %; Neutrophils % 63.1 %; Platelet Count 305 10^3/uL (130-400); RBC 3.99 10^6/uL (3.93-5.22); RDW 12.9 % (11.7-14.6); RDW-SD 44.2 fL; WBC 7.22 10^3/uL (4.4-10.8)
[2025-01-07] MEDS: Droperidol 5 MG/2 ML VIAL 2.5 MG IVP (21:26)
[2025-01-07] MEDS: LORazepam 2 MG/ML VIAL 1 MG IVP (21:29)
[2025-01-07 21:34] LABS: ALT 21 U/L (14-59); AST 15 U/L (15-37); Albumin 3.6 g/dL (3.4-5.0); Alkaline Phosphatase 70 U/L (46-116); Anion Gap 7.6 mmol/L (3-11); BUN 20 mg/dL (7-18); Bilirubin, Total 0.3 mg/dL (0.2-1.0); CO2 31.4 mmol/L (21.0-32.0); CREATININE 1.1 mg/dL (0.55-1.02); Calcium 9.2 mg/dL (8.5-10.1); Chloride 104 mmol/L (98-107); Estimated GFR 63.94 (mL/min/1.73m2); Glucose 88 mg/dL (74-106); Potassium 4.1 mmol/L (3.5-5.1); Sodium 143 mmol/L (136-145); Total Protein 7.4 g/dL (6.4-8.2)
--- NOTE | 2025-01-07 22:01 | DI.CT_ITS ---
Exam(s) CT HEAD CERVICAL SPINE WO EXAM: CT HEAD CERVICAL SPINE WO CLINICAL HISTORY: trauma, headache. TECHNIQUE: Imaging Protocol: Axial computed tomography images with coronal and sagittal reformatted images were created and reviewed COMPARISON: CT CT HEAD CERVICAL SPINE WO from 07/31/2022 FINDINGS: CT Head: Ventricles and Extra axial spaces: Normal in size and morphology for the patient's age. Hemorrhage: None. Cerebral parenchyma: Normal. Midline shift: None. Brainstem/Cerebellum: Normal. Calvarium: Normal. Visualized Paranasal sinuses/Mastoids: There is mild mucosal thickening in the right sphenoid sinus. The remaining visualized paranasal sinuses are clear. The mastoid air cells are well aerated. Soft Tissues: Unremarkable. CT Cervical Spine: Bones: No acute fracture or subluxation. There is reversal of the normal cervical lordosis. This may be due to muscle spasm or patient positioning. Mild degenerative changes are seen in the cervical s pine, particularly at C6-C7. Soft Tissues: Unremarkable. Lung Apices: Clear. IMPRESSION: 1. No acute intracranial process. 2. No acute fracture or subluxation in the cervical spine. 3. The preliminary [facility] report was reviewed. RADIATION DOSE DELIVERED: 1,182.62mGy.cm Total DLP DATA REPOSITORY: All CT scans at this facility are submitted to the National Radiology Data Registry (NRDR) Dose Index Registry (DIR) with the [employer] ([employer]). RADIATION OPTIMIZATION: All CT scans at this facility use at least one of these dose optimization te chniques: automated exposure control; mA and/or kV adjustment per patient size (includes targeted exa ms where dose is matched to clinical indication); or iterative reconstruction.
--- NOTE | 2025-01-07 22:51 | DI.[facility]_ITS ---
PROCEDURE INFORMATION: Exam: CT Head Without Contrast Exam date and time: 01/07/2025 9:53 PM Age: 44 years old Clinical indication: Pain; Headache not specified TECHNIQUE: Imaging protocol: Computed tomography of the head without contrast. Radiation optimization: All CT scans at this facility use at least one of these dose optimization techniques: automated exposure control; mA and/or kV adjustment per patient size (includes targeted exams where dose is matched to clinical indication); or iterative reconstruction. COMPARISON: CT HEAD CERVICAL SPINE WO 07/31/2022 3:11 PM FINDINGS: Brain: No intracranial hemorrhage or extra-axial fluid collection. No evidence of mass effect or midline shift. Munson-white matter differentiation is intact. Cerebral ventricles: No ventriculomegaly. Paranasal sinuses: Unremarkable. No fluid levels. Mastoid air cells: Unremarkable. Bones: No acute calvarial fracture. Soft tissues: Scalp soft tissues are unremarkable. IMPRESSION: No acute intracranial pathology. PROCEDURE INFORMATION: Exam: CT Cervical Spine Without Contrast Exam date and time: 01/07/2025 9:53 PM Age: 44 years old Clinical indication: Pain; Headache not specified TECHNIQUE: Imaging protocol: Computed tomography of the cervical spine without contrast. Radiation optimization: All CT scans at this facility use at least one of these dose optimization techniques: automated exposure control; mA and/or kV adjustment per patient size (includes targeted exams where dose is matched to clinical indication); or iterative reconstruction. COMPARISON: CT HEAD CERVICAL SPINE WO 07/31/2022 3:11 PM FINDINGS: Bones: Straightening of the cervical lordosis. Vertebral body heights are maintained. No locked or perched facets. No acute cervical spine fracture. The dens is intact. Atlantoaxial intervals are normal. Disc space heights are normal. Lungs: Lung apices are clear. Soft tissues: Unremarkable. IMPRESSION: No acute findings in the cervical spine. Dictated and Authenticated by: Escobar Dennis MD. Orderin Bulmaro Galvan MD
[2025-01-07 23:10] VITALS: BP 143/64; PULSE 71; RESP 16; O2SAT 98
== END 2025-01-07 23:10 | disposition home or self-care (01) ==
PROVIDERS: Emergency Provider Emergency Medicine Emergency Medical Services; PCP Family Medicine
DX: G43.909 Migraine, unspecified, not intractable, without status migrainosus (principal); S06.0X0A Concussion without loss of consciousness, initial encounter; R00.1 Bradycardia, unspecified; W06.XXXA Fall from bed, initial encounter; Y93.89 Activity, other specified; Y92.013 Bedroom of single-family (private) house as the place of occurrence of the external cause
CPT/HCPCS: 80053; 93005; 96361; 96374; 96375; 96376; 99285; 70450; 72125; 85025; 93010; J1790; J2060

== ENCOUNTER 2025-03-10 16:27 | Outpatient (REF) | payer MEDICAID, SELFPAY ==
[2025-03-12 12:22] LABS: Fentanyl Scr w/Rfx Confirm Positive ng/mL (<1)
[2025-03-13 09:56] LABS: Fentanyl Confirmation Negative ng/mL (<2); Norfentanyl Confirmation Negative ng/mL (<10)
== END 2025-03-10 16:28 | disposition home or self-care (01) ==
LOC: NCHCN 16:27
PROVIDERS: PCP Family Medicine; Visit Provider Family Medicine
DX: N89.8 Other specified noninflammatory disorders of vagina (principal); F90.0 Attention-deficit hyperactivity disorder, predominantly inattentive type; Z87.440 Personal history of urinary (tract) infections; Z79.899 Other long term (current) drug therapy
CPT/HCPCS: 80307; 80354; 87077; 87086; 87186; 87480; 87510; 87660

== ENCOUNTER 2025-03-30 15:43 | Outpatient (REF) | payer MEDICAID, SELFPAY ==
[2025-03-30 18:25] LABS: Glucose Negative (Negative)
[2025-03-30 18:41] LABS: C & S Indicated? No; RBC 0-2 HPF (0-2); WBC 0-2 HPF (0-5)
== END 2025-03-30 15:44 | disposition home or self-care (01) ==
LOC: NCHCN 15:43
PROVIDERS: PCP Family Medicine; Visit Provider Family Medicine
DX: Z87.440 Personal history of urinary (tract) infections (principal)
CPT/HCPCS: 81003; 81015

== ENCOUNTER 2025-04-08 02:37 | Outpatient (CLI) | payer MEDICAID, SELFPAY ==
[2025-04-08 18:01] LABS: Anion Gap 7.2 mmol/L (3-11); BUN 17 mg/dL (7-18); CO2 31.8 mmol/L (21.0-32.0); Calcium 9.6 mg/dL (8.5-10.1); Calculated LDL 168 mg/dL (<100); Chloride 104 mmol/L (98-107); Cholesterol 239 mg/dL (<200); Estimated GFR 63.54 (mL/min/1.73m2); Glucose 82 mg/dL (74-106); HDL Cholesterol 50 mg/dL (>or=50); Potassium 3.8 mmol/L (3.5-5.1); Sodium 143 mmol/L (136-145); TSH (W/Ref FT4) 2.53 uIU/mL (0.36-3.74); Triglyceride 105 mg/dL (<150)
[2025-04-09 11:18] LABS: Lyme Ab w Rflx to Lyme Confirm Negative (Negative)
[2025-04-11 23:07] LABS: B. miyamotoi PCR Negative (Negative); Babesia divergens/MO-1 Negative (Negative); Ehrlichia muris eauclairensis Negative (Negative)
== END 2025-04-08 02:38 | disposition home or self-care (01) ==
LOC: LBO 02:37
PROVIDERS: PCP Family Medicine; Visit Provider Family Medicine
DX: Z13.220 Encounter for screening for lipoid disorders (principal); W57.XXXA Bitten or stung by nonvenomous insect and other nonvenomous arthropods, initial encounter; E03.9 Hypothyroidism, unspecified
CPT/HCPCS: 36415; 80048; 80061; 87798; 84443; 86618

== ENCOUNTER 2025-04-28 13:10 | Outpatient (REF) | payer MEDICAID, SELFPAY ==
--- NOTE | 2025-04-28 09:30 | SKI_PTH ---
PATIENT: Karon Parra LOC: NCN #:[id number] AGE/SX: 45/F ROOM: RE04/28/[address]: Sophia Edwards V : 1980 BED: DIS: 04/28/2025 SPEC #: [id number] RECD: 04/28/25 17:54 STATUS: DAVION REJustin #: [id number] DAMARI: 04/28/25 09:[address]: Sophia Edwards V DEPT: Surgical Specimen RECD BY: Joyce Genao Tissues: 1 - SKIN BIOPSY(SHAVE/PUNCH) Procedures: SKIN LEVEL 4 Comments: [id number]
== END 2025-04-28 13:11 | disposition home or self-care (01) ==
LOC: NCHCN 13:10
PROVIDERS: PCP Family Medicine; Visit Provider Family Medicine
DX: D22.72 Melanocytic nevi of left lower limb, including hip (principal)
CPT/HCPCS: 88305

== ENCOUNTER → 2025-08-06 06:27 | Outpatient (CLI) | payer MEDICAID, SELFPAY ==
--- NOTE | 2025-08-06 | DI.RAD_ITS ---
Exam(s) XR LUMBAR SPINE COMPLETE EXAM: XR LUMBAR SPINE COMPLETE CLINICAL HISTORY: SPASM OF MUSCLE OF LOWER BACK, M62.830. TECHNIQUE: 2D digital imaging was performed. COMPARISON: No exams were available for comparison FINDINGS: Five views No evidence of fracture, listhesis, nor pars interarticularis defects. There is significant disc space narrowing at L5-S1 level. Mild disc space narrowing at L4-5. Other disc spaces above this level exhibit normal height. There is minimal facet joint degenerative change. Sacroiliac joints appear age- appropriate. No significant scoliosis. No osseous lesions IMPRESSION: Some disc space narrowing at L5-S1 level noted. DATA REPOSITORY: RADIATION DOSE DELIVERED:
== END ==
LOC: DI 06:27
PROVIDERS: PCP Family Medicine; Visit Provider Family Medicine
DX: M62.830 Muscle spasm of back (principal); M51.370 Other intervertebral disc degeneration, lumbosacral region with discogenic back pain only
CPT/HCPCS: 72110